=== PATIENT | female | born 1990 | race Caucasian/White ===

== ENCOUNTER 2021-07-03 15:43 | Inpatient (IN) ==
[2021-07-04] MEDS ORDERED: ACETAMINOPHEN 325 MG TAB PO PRN (12:19)
--- NOTE | 2021-07-04 13:16 | History & Physical Report ---
Date of Service July 04, 2021 Assessment & Plan (1) Neuropathy: Plan: Patient does present with neurological findings on examination. Not corroborating with the examinations that have been reported. It seems like she has a mid thoracic neuropathy. Patient will have her images loaded into our system. Patient may be continued on folic acid and thiamine she will also be given B12 pending levels. Neurology would be consulted. Further imaging not be ordered until neurology evaluates the patient. Patient would not be given DVT prevention in case of spinal tap will be undertaken. Per virus records there was some discussion she was on Xarelto for DVT PE but the patient cannot recall that being in her history. [facility] has sent an SPEP which is pending this was sent on 02 July while his vitamin B6. June 30 vitamin B12 was 933 tocopherol was also sent on 02 July folate was found to be 2.2 on June 30 which is low but there laboratory SILVERIO was also sent and is pending as well as ANCA, antiproteinase 3, antimyeloperoxidase, SS Ro and La she had a syphilis test which was nonreactive Lyme disease in the is pending copper level pending zinc level pending (2) Substance abuse: Plan: Patient has history of heavy alcohol use. She is been in the hospital for 5 days by her account. She subsequently passed concern for withdrawal. Does place her at risk for thiamine and folic acid deficiency. Patient currently has no signs or symptoms of withdrawal. Patient will be offered a nicotine patch. (3) Chronic pancreatitis: Plan: Patient typically is on have any diarrhea but she does have persistent chronic abdominal pain. Will check LFTs and lipase but seems like her problem seems to be mostly neurological at this point time (4) History of COVID-19: Plan: Patient states she is admission to [facility] for alcohol withdrawal and chronic pancreatitis in late April where she tested positive for Covid although had no Covid symptoms other than perhaps GI symptoms that were associated with her prime diagnosis. Patient has passed her initial isolation however because she is a transfer from [facility] we will retest her Covid testing at this point time (5) DVT prophylaxis: Plan: SCDs for DVT prevention Admission and Anticipated Discharge Date Admission Date: July 04, 2021 History of Present Illness Primary Care Provider: NO PCP Patient is a transfer from [facility] with bilateral lower extremity weakness. The neuropathy in her report starts approximately care home between her bellybutton and her chest. She says she has sensation although it is altered. The patient has been worked up in 2014 at [facility] where she did have a spinal tap for consideration of multiple sclerosis which reportedly was unremarkable. The patient is a lifelong alcoholic though she has not had any drinks for some time and she has been in [facility] for 5 days prior to her transfer. She states that she in the past also suffer from chronic pancreatitis but is currently on no medications whatsoever. In [facility] it looks like some imaging studies were performed CT scan abdomen pelvis June 28 was with hepatomegaly and steatosis no inflammatory process is seen. Magnetic resonance imaging of the cervical spine with and without contrast July 02 show new area of abnormal signal in the dimitri without enhancement suspicious for demyelinating process in the setting of multiple sclerosis no abnormal cord signal in the cervical or thoracic spine spondylitic change in the cervical and thoracic spine unchanged. Reportedly the patient had teleneurology consult with Dr. Miranda. He r ecommended transfer for onsite neurological evaluation. He recommended MRI of the brain. This may be what we saw combined with the cervical thoracic spine with the dimitri lesion concern. Recommending replete folic acid empiric thiamine Allergies Allergy/AdvReac Type Severity Reaction Status Date / Time adhesive tape Allergy Verified 04/26/19 21:25 aspirin Allergy Verified 04/26/19 21:25 NSAIDS (Non-Steroidal AdvReac Unknown RASH Unverified 03/16/19 17:20 Anti-Inflamma ibuprofen AdvReac Dizziness Verified 04/26/19 21:25 Home Medications Medication Instructions Recorded Confirmed Type albuterol sulfate 90 mcg/actuation 2 puff INHALATION UD PRN 03/16/19 06/20/19 History aerosol inhaler (Ventolin HFA) lisinopril 5 mg tablet 5 mg PO DAILY 03/16/19 06/20/19 History acetaminophen 500 mg tablet 1,500 mg PO BID tab 06/20/19 06/20/19 History trazodone 50 mg tablet See Rx Instructions .ROUTE 10/20/19 Rx .COMPLEX #30 tablet gabapentin 600 mg tablet See Rx Instructions .ROUTE 04/13/20 Rx .COMPLEX #90 tablet Past Med/Surg History Medical History (Updated 07/04/21 @ 13:29 by Jose Nguyen MD) Acute torticollis Bipolar disorder Classic migraine with aura Numbness Pseudotumor cerebri Trichomoniasis UTI (urinary tract infection) Surgical History (Updated 07/06/19 @ 08:49 by Jud Potter) S/P appendectomy S/P section S/P knee surgery Family History (Updated 05/31/19 @ 15:53 by Denny Ibrahim) Father Kidney stone Unknown Sleep apnea Diabetes Kim's palsy Hypertension Cancer Grandmother Myocardial infarction Lymphoma Grandfather Malignant neoplasm of colon Social History Smoking Status: Current every day smoker Preferred Language: Yoruba marital status: single current occupational status: employed Feels Safe at Home: Yes Assistive Devices: Walker Review of Systems Review of Systems: Mild distress and moderate fatigue no headache, no visual changes no speech or swallowing issues no chest pain, pressure or palpitations no shortness of breath, cough or wheezes no abdominal pain, nausea or vomiting, diarrhea or constipation no dysuria, hematuria or frequency Persistent right knee pain. Patient is altered sensation in her lower body which she says is painful. no focal back pain, no CVA tenderness or radicular pain no bruising, bleeding or rashes Patient claims of altered sensation from the mid torso down circumferentially involving the area between her breastbone and umbilicus and both legs. She says she can feel gross touch but not light touch no complaints of anxiety or depression.. Physical Exam Physical Exam: The patient appeared well nourished and normally developed. Patient has a cushingoid appearance initially there is notes that dexamethasone has been on her medication list. Vital signs as documented. Head exam is normocephalic atraumatic Neck is without JVD, thyromegaly, or carotid bruits. Lungs are clear to auscultation, no focal loss of breath sounds Cardiac exam, Rhythm is regular.. No murmurs, rubs or gallops. Abdominal exam reveals normal bowel sounds, soft diffusely nondescript tenderness with no focal guarding or rebound Extremities are nonedematous and both pedal pulses are present Neurologic exam is alert and oriented, patient has brisk reflexes and some clonus to ankle reflex testing. Toes are equivocal upper extremities are not affected in the same way Lower extremities the patient can move her legs against gravity and slightly of them off the bed otherwise she has difficulty positioning and uses her arms to position her legs. She has no upper extremity symptoms or facial nerve deficits that could be seen Skin is without bruises or rashes Psychologically is without concerns for anxiety or depression Patient was openly vocal but asking for pain medication on presentation Results & Data Results & Data ([facility]) Vital Signs (Past 12 Hours) Vital Signs Temp Pulse Resp BP Pulse Ox 07/04/21 11:20 97.9 F 76 16 117/82 95 Code Status & VTE Plan VTE Prophylaxis Plan VTE Prophylaxis will be ordered: Yes PG Care Time/CCT Total # of Minutes Spent Total Time Spent with Patient: Total time spent is greater than 50% in coordination of care (as documented) at patient's floor/unit and/or counseling patient: Coding Level of Care Code 52963 Initial Inpt Care Lvl 3 Diagnoses Neuropathy G62.9 Substance abuse F19.10 Chronic pancreatitis K86.1 History of COVID-19 Z86.16 DVT prophylaxis Z29.9
[2021-07-04] MEDS: MoRPHine SULFATE 2 MG/ML CARP IV PRN ×2 (16:12→21:00)
[2021-07-04] MEDS: ACETAMINOPHEN 500 MG TAB PO SCH ×2 (16:15→21:55)
[2021-07-05] MEDS: MoRPHine SULFATE 2 MG/ML CARP IV PRN ×3 (00:58→23:15)
[2021-07-05] MEDS: GABAPENTIN 600 MG TAB PO PRN ×2 (01:57→10:29)
[2021-07-05] MEDS: ONDANSETRON INJ 2 MG/ML 2 ML VIAL IV PRN ×3 (05:39→23:15)
[2021-07-05] MEDS: ACETAMINOPHEN 500 MG TAB PO SCH ×3 (06:17→22:11)
[2021-07-05 07:11] LABS: Appearance Urine Clear (Clear); Bacteria Urine Automated Negative (Negative); Blood Urine Negative (Negative); Color Urine Dark Yellow; Epithelial Cell Urine Auto >30 /lpf (0-5); Glucose Urine UA Negative (Negative); Ketones Urine Negative (Negative); Leukocyte Esterase Urine 1+ (Negative); Nitrite Urine Negative (Negative); Protein Urine Negative (Negative); RBC Urine Automated 0-4 /hpf (0-4); Specific Gravity Urine 1.009 (1.000-1.030); Urobilinogen Urine Negative (Negative)
[2021-07-05 07:15] LABS: Bilirubin Urine 1+ (Negative)
[2021-07-05 08:30] LABS: BUN Creatinine Ratio 11.5 (10-20); Calcium 10.1 mg/dl (8.5-10.1); Creatinine Clr Calc Pharmacy 159.2 ml/min; Est GFR (African American) 148.5 ml/min; Est GFR (Non-African American) 128.1 ml/min; Magnesium 1.9 mg/dl (1.8-2.4); Potassium 3.4 mmol/L (3.5-5.1)
[2021-07-05] MEDS: oxyCODONE HCL IR 5 MG TAB (IMMEDIATE RELEASE) PO PRN ×3 (08:59→22:33)
--- NOTE | 2021-07-05 10:12 | Fluoroscopy Report ---
FLUOROSCOPICALLY GUIDED LUMBAR PUNCTURE CLINICAL HISTORY: multiple sclerosis work up FLUOROSCOPY TIME: 0.8 minutes. A single fluoroscopic spot image of the lumbar spine was submitted. PROCEDURE: The procedure, risks and benefits were discussed with the patient including the risk of s lucas headache, bleeding and infection. The patient agreed to the procedure and informed written cons ent was obtained. The procedure was performed by Dr. Elias following a timeout. The left L4-L5 in terlaminar space was targeted. Skin overlying the space was prepped and draped in the usual sterile f ashion and local anesthesia was achieved with 1% lidocaine. Under intermittent fluoroscopic guidance, a 20-gauge x 3 1/2 in. Sprotte needle was inserted into the thecal sac. No fluid was obtained. The t ip of the needle was located centrally within the central canal which was confirmed on both AP and la teral views. A second attempt at the L5-S1 level was also made. The tip of the needle was located tanner trally within the central canal which was confirmed on both AP and lateral views. No fluid was obtain ed. Therefore, this could be consistent with a dry tap. The patient tolerated the procedure well. The re were no immediate complications. IMPRESSION: Attempted fluoroscopic guided lumbar puncture described above. No fluid was obtained. The refore, this would be consistent with a dry tap. Consider hydration prior to an additional lumbar pun cture attempt. ACT 112: Negative or not required by law. Electronically signed by: Bryant Elias M.D. 07/05/2021 10:10 AM
[2021-07-05] MEDS: FOLIC ACID 1 MG TAB PO SCH (10:29)
[2021-07-05] MEDS: THIAMINE HCL 200 MG in SODIUM CHLORIDE 0.9% 50 ML IV SCH (10:44)
[2021-07-05] MEDS: NICOTINE 21 MG/24 HR TDSY TD SCH (10:45)
[2021-07-05] MEDS: LORazepam 0.5 MG TAB PO PRN ×2 (10:46→23:15)
--- NOTE | 2021-07-05 11:02 | Neurology Consultation ---
Date of Consultation July 05, 2021 Assessment & Plan (1) Numbness and tingling: (2) Multiple sclerosis: (3) Pseudotumor cerebri: (4) Alcoholism: this patient has been labeled with multiple sclerosis in the past based on abnormality seen on MRIs. More recent MRIs this spring apparently did not show lesions. An MRI done at [facility] of the cervical spine showed a new pontine lesion not present in February. I do not have these films but only the reports. Otherwise cervical and thoracic spine MRIs were unremarkable at [facility]. back in 2014, there was no clinical evidence to suspect MS (although she had a "Lhermitte's sign" ). An LP was unremarkable with no signs of Inflammation a lumbar puncture was attempted today by Radiology at 2 different levels, but it was a "dry tap", even using fluoroscopy. this is likely due to her frequent nausea/vomiting/dehydration The patient has a significant numbness and tingling with sensory level consistently up to T4 diffusely bilaterally. And upper thoracic spinal cord lesion or cervical spinal cord lesion could account for this. I am concerned that the MRIs at [facility] were not sensitive enough to pick something up and were probably done without contrast. On exam the patient has no other focal findings , meningeal signs, or encephalopathy. Patient carries a diagnosis of pseudotumor cerebri but apparently a recent visit to an fork lift truck operator (who diagnosed her originally ) says that she does not had anymore. Patient does have daily frontal headaches which are migrainous in nature. The patient has a history of alcoholism with alcoholic pancreatitis and hepatic steatosis. She had electrolyte abnormalities and nutritional problems. These are improve slightly with hospitalizations recently. She continues to have abdominal pain, nausea and vomiting. The patient has a history of psychiatric issues with bipolar disease and depression. I am not sure she is compliant with any psychiatric medication and she seems depressed and anxious currently. Recommendations: 1. MRI of the brain with without contrast. 2. MRI of the cervical spine with without contrast. 3. MRI of the thoracic spine with and without contrast. 4. perhaps we will attempt LP in the future but we will check the MRIs for now. 5. Consider TSH, B12, B1, and B6 , ESR, and Lyme Western blot. 6. Increase activity as able and use physical and occupational therapy. 7. Consider psychiatric consultation regarding her mood. Overall, I spent a total of 90 minutes with this case including review of records, direct evaluation the patient at bedside, and discussing the case with the patient at bedside, Dr. Elias, RN at bedside, and Dr. Dillard, including differential diagnosis and treatment options. History of Present Illness Reason for Consultation: Patient is a 30-year-old, who I was asked to see the request of Dr. Nguyen, for neurologic consultation regarding possible MS and other issues. Requesting Physician: Dr. Nguyen Attending Physician: Nilay Biggs MD History of Present Illness in 2010 the patient was diagnosed with pseudotumor cerebri and put on Diamox. She was having headaches and blurry vision. Because of some symptoms she apparently, in 2013, saw Dr. Cunningham, who was an MS specialist at [facility] then. Dr. Bolden and felt that she may be had MS but no treatment was given. .Apparently MRIs at that time showed white matter lesions. I cannot seem to find any these MRI since they tend to be all done in outside institutions and we have not actually had MRIs here in our institution. Then, she was seen by Neurology in May of 2015 for the concern regarding MS. At that time, she was having some neck pain with some radicular symptoms into the arms and had a positive Lhermitte's sign. Extensive laboratory studies were unremarkable including CBC, Chem profile, sed rate, RPR, Lyme antibody titers, serum copper studies, SUSANA level, and negative titers for toxo, HSV, and CMV . An LP was performed at [facility] in June of 2015 and showed 1 white cell, 5 red cells, a protein of 36, negative IgG synthesis rate, negative myelin basic protein, negative Lyme studies and no oligoclonal bands seen. Therefore the MRI was negative for inflammatory disease. The patient was lost to follow-up at not seen by Neurology at [facility] since. In March of 2021 she was admitted to [facility] [place] and was diagnosed with pancreatitis secondary to alcoholism. She has been a heavy alcohol user drinking 1/5 of rum per day. She was noted to have depression and carries a diagnosis of bipolar disorder. She has been noncompliant with her psychiatric medications. In May of 2021 she was admitted with abdominal pain, nausea, vomiting, positive Covid-19 test and chronic pancreatitis secondary to alcoholism. She was noted to have hepatic steatosis as well. She tells me that she cut back her alcohol use considerably over the last 2 months. On June 28 she was discharged from [facility] after being admitted for profound weakness with electrolyte abnormalities including very low magnesium of 0.9, hyponatremia, and elevated liver enzymes. Finally, she was admitted to [facility] earlier this week for weakness as well as numbness and tingling. Numbness and tingling includes her feet and legs and goes up including her labia, vagina, and buttocks and her abdomen up to the breast level. This is circumferential and diffuse in her legs, abdomen, and lower thorax. Above T4, she has no numbness and there is no numbness in her arms or neck. Apparently the patient saw an eye doctor July 02 told her he had no evidence of pseudotumor cerebri anymore. The patient was transferred to our institution July 04 in order to get a spinal tap. An MRI of the cervical spine done July 02 showed a new lesion in the dimitri not present in the previous study of February of 2021. she had some spondylosis but no cord impingement. Thoracic spine MRI apparently was unremarkable. I have the reports but not the films. Laboratory studies here revealed a sodium of 135, potassium 3.4, and magnesium 1.9. Urinalysis was unremarkable. She was sent down for a spinal tap today and I have talked to the radiologist. Apparently he was in the spinal canal at 2 different levels ( done under fluoroscopy ) and could not get any cerebrospinal fluid ( "dry tap"). The patient is upset about this and feels a little anxious. Blood pressure was 95/64 earlier today and she is afebrile. Allergies Allergy/AdvReac Type Severity Reaction Status Date / Time adhesive tape Allergy Verified 04/26/19 21:25 aspirin Allergy Verified 04/26/19 21:25 NSAIDS (Non-Steroidal AdvReac Unknown RASH Unverified 03/16/19 17:20 Anti-Inflamma ibuprofen AdvReac Dizziness Verified 04/26/19 21:25 Home Medications Medication Instructions Recorded Confirmed Type albuterol sulfate 90 mcg/actuation 2 puff INHALATION UD PRN 03/16/19 06/20/19 History aerosol inhaler (Ventolin HFA) lisinopril 5 mg tablet 5 mg PO DAILY 03/16/19 06/20/19 History acetaminophen 500 mg tablet 1,500 mg PO BID tab 06/20/19 06/20/19 History trazodone 50 mg tablet See Rx Instructions .ROUTE 10/20/19 Rx .COMPLEX #30 tablet gabapentin 600 mg tablet See Rx Instructions .ROUTE 04/13/20 Rx .COMPLEX #90 tablet Patient History Medical History Acute torticollis Bipolar disorder Classic migraine with aura Numbness Pseudotumor cerebri Trichomoniasis UTI (urinary tract infection) Surgical History S/P appendectomy S/P section S/P knee surgery Family History Father Kidney stone Hypertension Dyslipidemia Unknown Sleep apnea Diabetes Kim's palsy Hypertension Cancer Grandmother Myocardial infarction Lymphoma Grandfather Malignant neoplasm of colon Mother Multiple sclerosis Social History (Updated 07/05/21 @ 10:44 by Toby Villanueva MD) Smoking Status: Current every day smoker Tobacco Type: Cigarettes Age Started Using Tobacco: 10; packs per day: 1.5; Do You Dip or Chew Tobacco: No; Hx Alcohol Use: Yes Alcohol type: hard liquor Alcohol type Comment: rum Alcohol Intake Frequency Comment: was 1/5 per day until about 2 months ago now is "occasional" Preferred Language: Upper Sorbian Communication Ability: Effective Beliefs That Will Affect Care: None marital status: single Current Living Situation: Parent Current Living Situation Comment: Lives with 2 children 1 & 7, pts father is currently living with them to current occupational status: unemployed Feels Safe at Home: Yes Safety Concerns: Feels Safe At This Time Assistive Devices: Walker Assistive Devices Comment: Has dentures but they are broken, no teeth Review of Systems Constitutional: + fatigue and + weakness; no fever Eyes: no diplopia, no eye pain and no worsening vision Ear, Nose, Mouth, Throat: no ear pain, no tinnitus, no hearing loss, no dizziness, no hoarseness and no dysphagia Respiratory: no cough and no dyspnea Cardiovascular: no chest pain, no palpitations and no lightheadedness Gastrointestinal: + abdominal pain, + nausea and + vomiting Genitourinary: no dysuria, no urinary frequency and no urinary incontinence Musculoskeletal: + back pain and + neck pain; no radicular pain, no joint pain and no myalgia Integumentary: no rash and no lesions Neurologic: + generalized weakness and + numbness; no gait abnormality, no localized weakness, no tingling, no tremor(s), no abnormal movements, no headache(s), no abnormal speech, no confusion and no memory loss Psychiatric: no depression, no irritability, no anxiety, no difficulty concentrating, no confusion and no hallucinations Endocrine: no fatigue and no flushing Hematologic / Lymphatic: no easy bleeding and no easy bruising Allergy / Immunological: no urticaria and no problem reported Exam (Neuro) Physical Exam: The patient is right-handed. The patient is awake, alert, and attentive. Speech is normal without any aphasia or dysarthria. The patient can name objects, repeat phrases, and has normal spontaneous speech. Mentation and thought processes are intact, with orientation to person, place and time, and normal fund of knowledge. Attention and concentration are normal. Mood is down and affect is tearful. General appearance and grooming are normal. Short and long-term memory are intact to conversation. Pupils are 3 mm bilaterally and reactive to light. Extraocular eye muscles are intact without nystagmus. Visual acuity and visual kraft seem normal grossly to confrontation. There are no deficits to sensation in the face in all 3 distributions of the fifth cranial nerve bilaterally. Corneal reflexes are positive bilaterally. Facial strength and symmetry was normal bilaterally. Hearing seems normal bilaterally. Palate moves well without asymmetry. There is normal sternocleidomastoid and trapezius (shoulder shrug) strength bilaterally. Tongue is midline with good strength bilaterally. She has no teeth Neck has a full range of motion with some discomfort. Cervical, thoracic, and lumbar spine are mildly tender to palpation. Gait is not tested but stance sitting up in bed is normal. I observed her transfer normally from stretcher to bed without any difficulty. With outstretched arms there is no drift. There are no resting, postural, or action tremors. There is no ataxia with finger to nose testing. There is good facility in the hands. No other abnormal involuntary movements are noted. Motor strength is 5/5 diffusely in the arms bilaterally including deltoids, biceps, triceps, brachioradialis, wrist flexors and extensors, speech and hearing clinic director, and intrinsic hand muscles. Motor strength is 4+/5 diffusely in the legs bilaterally including hip flexors, quadriceps, hamstrings, gastrocnemius, tibialis anterior, tibialis posterior, and Peroneii muscles, However, there is give-way tendencies to this weakness and I suspect that she has intact strength initially diffusely. Toe extensors are normal and there is good bulk in the extensor digitorum brevis muscles bilaterally. The limbs have good tone without rigidity or spasticity. There is no atrophy noted in the muscles. Muscle bulk is normal, there is no tenderness to palpation, no myotonia to percussion, and no fasciculations seen. Sensory examination Reveals decreased sensation to pin and touch in a circumferential diffuse manner in both lower extremities, her perineum, buttocks, abdomen, and back up to at T4 level bilaterally and diffusely. Above this sensation was spared. Reflexes are 2/4 in the biceps, triceps, brachioradialis, quadriceps, and Achilles tendons bilaterally. There is no clonus bilaterally. Toes are downgoing with plantar stimulation bilaterally. Peripheral pulses are present and of normal quality distally in all 4 limbs. There is no peripheral edema noted in the limbs. Results & Data ([facility]) Vital Signs (Past 12 Hours) Vital Signs Temp Pulse Resp BP Pulse Ox 07/05/21 07:31 36.5 C 84 18 95/64 L 96 07/04/21 23:20 36.8 C 64 18 146/97 H 96 PG Care Time/CCT Total # of Minutes Spent Total Time Spent with Patient: Total time spent is greater than 50% in coordination of care (as documented) at patient's floor/unit and/or counseling patient: Coding Level of Care Code 38110 Initial Inpt Care Lvl 3 Diagnoses Numbness and tingling R20.0; R20.2 Multiple sclerosis G35 Pseudotumor cerebri G93.2 Alcoholism F10.20 Time Spent (min) 90 Comment Add modifiers as able
[2021-07-05] MEDS ORDERED: HYDROmorphone INJ 0.5 MG/0.5 ML SYR IV PRN (11:40)
[2021-07-05] MEDS ORDERED: POTASSIUM CHLORIDE 20 MEQ/15 ML UDC PO ONE (12:00)
--- NOTE | 2021-07-05 12:11 | Hospitalist Progress Note ---
Date of Service July 05, 2021 Assessment & Plan (1) Paraparesis: Plan: Sensory level around the level of the nipple; unfortunately, lumbar puncture dry tap Neurology consult noted and appreciatedMRI brain, C-spine, T-spine, and lab tests recommended ordered will presume organic unless proven otherwise Discussed with neurology attending (2) Substance abuse: Plan: Patient has history of heavy alcohol use. She is been in the hospital for 5 days by her account. She subsequently passed concern for withdrawal. Does place her at risk for thiamine and folic acid deficiency. Patient currently has no signs or symptoms of withdrawal. Patient will be offered a nicotine patch. (3) Chronic pancreatitis: Plan: Patient typically is on have any diarrhea but she does have persistent chronic abdominal pain. Will check LFTs and lipase but seems like her problem seems to be mostly neurological at this point time (4) History of COVID-19: Plan: Patient states she is admission to [facility] for alcohol withdrawal and chronic pancreatitis in late April where she tested positive for Covid although had no Covid symptoms other than perhaps GI symptoms that were associated with her prime diagnosis. Patient has passed her initial isolation however because she is a transfer from [facility] we will retest her Covid testing at this point time (5) DVT prophylaxis: Plan: SCDs for DVT prevention Plan: Replace potassium; reports on Augmentin for culture proven respiratory tract infectioncontinue for now SCDs -will consider psychiatry consult Admission and Anticipated Discharge Date Admission Date: July 04, 2021 Subjective Originally presented to outside hospital with abdominal complaints, found to have prolonged QTC and hypokalemia, hypomagnesemia Appears during the course complaint of extremity weakness going on for 1 to 2 weeks; she indicated to me going on for few weeks but worse recently Physical Exam Physical Exam: Constitutional and general: Somewhat chronically ill appearance, looks biologic age Head and face: Mild puffiness puffiness, atraumatic Eyes: No scleral icterus, extraocular movements normal Neck: Supple, no JVD Musculoskeletal: No acute joint swelling, no bony abnormalities Skin/dermatologic/integument: No rash, no purpura Hematologic and lymphatic: pallor none, no petechia Gastrointestinal/abdomen: Nondistended, soft, nonacute Neurologic: Sensory level around level of the nipple; lower extremity weakness about grade 3 power when I saw her Cardiovascular: Heart rhythm regular, no rub, no murmur, no gallop Respiratory: Chest movements equal, no use of accessory muscles, no adventitious sounds Extremities: No edema, no cyanosis Results & Data Results & Data ([facility] Vital Signs (Past 12 Hours) Vital Signs Temp Pulse Resp BP Pulse Ox 07/05/21 10:43 82 113/79 07/05/21 07:31 36.5 C 84 18 95/64 L 96 Laboratory Results Laboratory Results - last 24 hr 07/04/21 07/04/21 07/04/21 12:34 14:09 14:09 Sodium Potassium Chloride Carbon Dioxide Anion Gap BUN Creatinine Est Cr Clr Drug Dosing Est GFR ( Amer) Est GFR (Non-Af Amer) BUN/Creatinine Ratio Glucose 93 Calcium Magnesium Urine Color Urine Appearance Urine pH Ur Specific [place] Urine Protein Urine Glucose (UA) Urine Ketones Urine Blood Urine Nitrite Urine Bilirubin Urine Urobilinogen Ur Leukocyte Esterase Urine WBC (Auto) Urine RBC (Auto) U Hyaline Cast (Auto) U Epithel Cells (Auto) Urine Bacteria (Auto) CSF Albumin Cancelled CSF IgG Cancelled CSF IgG Index Cancelled CSF IgG Synthesis Rate Cancelled CSF Myelin Basic Protein Cancelled CSF IgG Oligoclonal Bnd Cancelled CSF Lyme IgG (Immblot) Cancelled CSF Lyme IgG Bands Det Cancelled CSF Lyme IgM (Immblot) Cancelled CSF Lyme IgM Bands Det Cancelled IgG Cancelled Albumin (TEDDY) Cancelled SARS-CoV-2 (PCR) NEGATIVE EBV Source Cancelled EBV DNA, Quant Cancelled EBV DNA (PCR) Cancelled Herpesvirus 6 Source Cancelled HHV-6 DNA (PCR) Cancelled Varicella-Zoster Source Cancelled VZV DNA (PCR) Cancelled 07/05/21 07/05/21 06:41 07:18 Sodium 138 Potassium 3.4 L Chloride 105 Carbon Dioxide 23 Anion Gap 10.0 BUN 6 L Creatinine 0.51 L Est Cr Clr Drug Dosing 159.2 Est GFR ( Amer) 148.5 Est GFR (Non-Af Amer) 128.1 BUN/Creatinine Ratio 11.5 Glucose 96 Calcium 10.1 Magnesium 1.9 Urine Color Dark Yellow Urine Appearance Clear Urine pH 6.0 Ur Specific [place] 1.009 Urine Protein Negative Urine Glucose (UA) Negative Urine Ketones Negative Urine Blood Negative Urine Nitrite Negative Urine Bilirubin 1+ H Urine Urobilinogen Negative Ur Leukocyte Esterase 1+ H Urine WBC (Auto) 10-30 H Urine RBC (Auto) 0-4 U Hyaline Cast (Auto) 1-5 U Epithel Cells (Auto) >30 H Urine Bacteria (Auto) Negative CSF Albumin CSF IgG CSF IgG Index CSF IgG Synthesis Rate CSF Myelin Basic Protein CSF IgG Oligoclonal Bnd CSF Lyme IgG (Immblot) CSF Lyme IgG Bands Det CSF Lyme IgM (Immblot) CSF Lyme IgM Bands Det IgG Albumin (TEDDY) SARS-CoV-2 (PCR) EBV Source EBV DNA, Quant EBV DNA (PCR) Herpesvirus 6 Source HHV-6 DNA (PCR) Varicella-Zoster Source VZV DNA (PCR) PG Care Time/CCT Total # of Minutes Spent Total Time Spent with Patient: Total time spent is greater than 50% in coordination of care (as documented) at patient's floor/unit and/or counseling patient: Coding Level of Care Code 51403 Subseq Hosp Care Lvl 3 Diagnoses Substance abuse F19.10 Chronic pancreatitis K86.1 History of COVID-19 Z86.16 DVT prophylaxis Z29.9 Paraparesis G82.20
[2021-07-05] MEDS: GABAPENTIN 600 MG TAB PO SCH ×2 (15:40→21:53)
[2021-07-05] MEDS: AMOXICILLIN/CLAVULANATE 875 MG TAB PO SCH (15:40)
[2021-07-05] MEDS ORDERED: ACETAMINOPHEN 500 MG TAB PO ONE (16:17)
[2021-07-06] MEDS ORDERED: GADOBUTROL 65ML VIAL IV ONE (00:58)
[2021-07-06] MEDS: HYDROCORTISONE 2.5% CR 30 GM TUBE EXT PRN (01:29)
[2021-07-06] MEDS: NICOTINE 21 MG/24 HR TDSY TD SCH (01:32)
[2021-07-06] MEDS: oxyCODONE HCL IR 5 MG TAB (IMMEDIATE RELEASE) PO PRN ×4 (04:23→23:57)
[2021-07-06] MEDS: MoRPHine SULFATE 2 MG/ML CARP IV PRN ×3 (05:50→20:37)
[2021-07-06] MEDS: ACETAMINOPHEN 500 MG TAB PO SCH ×3 (06:18→20:23)
[2021-07-06 06:31] LABS: Hematocrit (blood only) 37.8 % (37-47); Hemoglobin 12.2 g/dL (12.0-16.0); Mean Corpuscular Hemoglobin 38.2 pg (25-34); Mean Corpuscular Hgb Conc 32.3 g/dL (32-36); Mean Corpuscular Volume 118.5 fL (80-100); Platelet Count 359 K/uL (130-400); RDW Standard Deviation 68.5 fL (36.4-46.3); Red Blood Count 3.19 M/uL (4.2-5.4); White Blood Count 4.26 K/uL (4.8-10.8)
[2021-07-06 07:19] LABS: Alanine Aminotransferase 56 U/L (12-78); Albumin Globulin Ratio 0.7 (0.9-2); Albumin Level 2.8 gm/dl (3.4-5.0); Alkaline Phosphatase 117 U/L (45-117); Aspartate Aminotransferase 87 U/L (15-37); BUN Creatinine Ratio 22.1 (10-20); Bilirubin,Total 1.2 mg/dl (0.2-1); Blood Urea Nitrogen 10 mg/dl (7-18); Calcium 9.2 mg/dl (8.5-10.1); Carbon Dioxide 29 mmol/L (21-32); Chloride 108 mmol/L (98-107); Creatinine Clr Calc Pharmacy 188.8 ml/min; Est GFR (African American) > 150.0 ml/min; Est GFR (Non-African American) 135.5 ml/min; Globulin 3.9 gm/dl (2.5-4.0); Glucose 83 mg/dl (70-99); Lipase 151 U/L (73-393); Magnesium 1.9 mg/dl (1.8-2.4); Sodium 141 mmol/L (136-145); Total Protein 6.7 gm/dl (6.4-8.2)
--- NOTE | 2021-07-06 08:20 | Hospitalist Progress Note ---
Date of Service July 06, 2021 Assessment & Plan (1) Paraparesis: Plan: MRI is pending; other work-up pending (2) Substance abuse: Plan: Request of narcotic medications frequentlyPer nursing is comfortable till she is asked about level of pain; mood and affect appears abnormal; psychiatry consulted (3) History of COVID-19: Plan: Negative repeat test (4) DVT prophylaxis: Plan: Subcutaneous Lovenox now (5) Abnormal LFTs: Plan: Pattern consistent with alcohol inducedAST more than ALTfollow Plan: Noted asymptomatic pyuria; noted fluctuation in blood pressure; mild leukopenia with macrocytosissuspect alcohol induced Admission and Anticipated Discharge Date Admission Date: July 04, 2021 Subjective Follow-up of lower extremity weaknessno new issues; no change according to her Physical Exam Physical Exam: Constitutional and general: Somewhat chronically ill appearance, looks biologic age Head and face: Mild puffiness puffiness, atraumatic Eyes: No scleral icterus, extraocular movements normal Neck: Supple, no JVD Musculoskeletal: No acute joint swelling, no bony abnormalities Skin/dermatologic/integument: No rash, no purpura Hematologic and lymphatic: pallor none, no petechia Gastrointestinal/abdomen: Nondistended, soft, nonacute Neurologic: Sensory level around level of the nipple; lower extremity weakness about grade 3 power Cardiovascular: Heart rhythm regular, no rub, no murmur, no gallop Respiratory: Chest movements equal, no use of accessory muscles, no adventitious sounds Extremities: No edema, no cyanosis Psychiatry-abnormal affect Results & Data Results & Data ([facility]) Vital Signs (Past 12 Hours) Vital Signs Temp Pulse Resp BP Pulse Ox 07/06/21 07:49 36.5 C 78 17 92/59 L 93 07/05/21 22:13 36.8 C 77 16 111/76 94 Laboratory Results Laboratory Results - last 24 hr 07/05/21 07/05/21 07/05/21 07:18 07:22 11:55 WBC RBC Hgb Hct MCV MCH MCHC RDW Std Deviation RDW Coeff of Parvez Plt Count MPV ESR 37 H Sodium 138 Potassium 3.4 L Chloride 105 Carbon Dioxide 23 Anion Gap 10.0 BUN 6 L Creatinine 0.51 L Est Cr Clr Drug Dosing 159.2 Est GFR ( Amer) 148.5 Est GFR (Non-Af Amer) 128.1 BUN/Creatinine Ratio 11.5 Glucose 96 Calcium 10.1 Magnesium 1.9 Total Bilirubin AST ALT Alkaline Phosphatase Total Protein Albumin Globulin Albumin/Globulin Ratio Lipase Vitamin B1 Vitamin B6 Vitamin B12 TSH 1.580 Lyme IgG (Western Blot) Lyme IgG 18 kDa Band Lyme IgG 23 kDa Band Lyme IgG 28 kDa Band Lyme IgG 30 kDa Band Lyme IgG 39 kDa Band Lyme IgG 41 kDa Band Lyme IgG 45 kDa Band Lyme IgG 58 kDa Band Lyme IgG 66 kDa Band Lyme IgG 93 kDa Band Lyme IgM Ab (WB) Lyme IgM 23 kDa Band Lyme IgM 39 kDa Band Lyme IgM 41 kDa Band 07/05/21 07/05/21 07/05/21 11:55 11:55 11:59 WBC RBC Hgb Hct MCV MCH MCHC RDW Std Deviation RDW Coeff of Parvez Plt Count MPV ESR Sodium Potassium Chloride Carbon Dioxide Anion Gap BUN Creatinine Est Cr Clr Drug Dosing Est GFR ( Amer) Est GFR (Non-Af Amer) BUN/Creatinine Ratio Glucose Calcium Magnesium Total Bilirubin AST ALT Alkaline Phosphatase Total Protein Albumin Globulin Albumin/Globulin Ratio Lipase Vitamin B1 Pending Vitamin B6 Pending Vitamin B12 1034 H TSH Lyme IgG (Western Blot) Pending Lyme IgG 18 kDa Band Pending Lyme IgG 23 kDa Band Pending Lyme IgG 28 kDa Band Pending Lyme IgG 30 kDa Band Pending Lyme IgG 39 kDa Band Pending Lyme IgG 41 kDa Band Pending Lyme IgG 45 kDa Band Pending Lyme IgG 58 kDa Band Pending Lyme IgG 66 kDa Band Pending Lyme IgG 93 kDa Band Pending Lyme IgM Ab (WB) Pending Lyme IgM 23 kDa Band Pending Lyme IgM 39 kDa Band Pending Lyme IgM 41 kDa Band Pending 07/06/21 07/06/21 05:40 05:40 WBC 4.26 L RBC 3.19 L Hgb 12.2 Hct 37.8 MCV 118.5 H MCH 38.2 H MCHC 32.3 RDW Std Deviation 68.5 H RDW Coeff of Parvez 16.0 H Plt Count 359 MPV 11.0 H ESR Sodium 141 Potassium 4.0 D Chloride 108 H Carbon Dioxide 29 Anion Gap 4.0 BUN 10 Creatinine 0.43 L Est Cr Clr Drug Dosing 188.8 Est GFR ( Amer) > 150.0 Est GFR (Non-Af Amer) 135.5 BUN/Creatinine Ratio 22.1 H Glucose 83 Calcium 9.2 Magnesium 1.9 Total Bilirubin 1.2 H AST 87 H ALT 56 Alkaline Phosphatase 117 Total Protein 6.7 Albumin 2.8 L Globulin 3.9 Albumin/Globulin Ratio 0.7 L Lipase 151 Vitamin B1 Vitamin B6 Vitamin B12 TSH Lyme IgG (Western Blot) Lyme IgG 18 kDa Band Lyme IgG 23 kDa Band Lyme IgG 28 kDa Band Lyme IgG 30 kDa Band Lyme IgG 39 kDa Band Lyme IgG 41 kDa Band Lyme IgG 45 kDa Band Lyme IgG 58 kDa Band Lyme IgG 66 kDa Band Lyme IgG 93 kDa Band Lyme IgM Ab (WB) Lyme IgM 23 kDa Band Lyme IgM 39 kDa Band Lyme IgM 41 kDa Band PG Care Time/CCT Total # of Minutes Spent Total Time Spent with Patient: Total time spent is greater than 50% in coordination of care (as documented) at patient's floor/unit and/or counseling patient: Coding Level of Care Code 27487 Subseq Hosp Care Lvl 2 Diagnoses Paraparesis G82.20 Substance abuse F19.10 History of COVID-19 Z86.16 DVT prophylaxis Z29.9 Abnormal LFTs R94.5
[2021-07-06] MEDS: GABAPENTIN 600 MG TAB PO SCH ×3 (08:21→20:29)
[2021-07-06] MEDS: AMOXICILLIN/CLAVULANATE 875 MG TAB PO SCH ×2 (08:22→15:41)
[2021-07-06] MEDS: FOLIC ACID 1 MG TAB PO SCH (08:22)
[2021-07-06] MEDS: THIAMINE HCL 200 MG in SODIUM CHLORIDE 0.9% 50 ML IV SCH (09:02)
[2021-07-06] MEDS: ENOXAPARIN INJ 40 MG/0.4 ML SYR SQ SCH (09:28)
--- NOTE | 2021-07-06 10:16 | Magnetic Resonance Report ---
MR cervical spine wo/w con CLINICAL HISTORY: paraperesis ? MS TECHNIQUE: Sagittal and axial T1, T2 and STIR images were obtained. COMPARISON STUDY: No previous studies for comparison. There are no suspicious areas of marrow replacement. There is small focal area of increased T2 signal within posterior aspect of the cord seen at C4-C5 level shows no evidence of abnormal enhancement (1 /). Overall evaluation is slightly limited due to motion artifact. C2-3: There is no evidence of disc bulge or focal herniation. There is no spinal or foraminal stenosi s. C3-4: Intervertebral disc space is preserved. Central protrusion of the disc is seen causing distorti on of the thecal sac. Bilateral neuroforamina are patent. C4-5: Intervertebral disc space is preserved. Central protrusion of the disc is seen causing mild dis tortion of the thecal sac without significant stenosis of the central canal. Bilateral neuroforamina are patent. C5-6 :Intervertebral disc space is slightly narrowed. Posterior osteophytes are seen. There is centra l protrusion of the disc causing distortion of the thecal sac and mild stenosis of the central canal. Minimal narrowing of bilateral neuroforamina. C6-7: Central canal and right neuroforamina is patent. Mild stenosis of the left neuroforamina. C7-T1: There is no evidence of disc bulge or focal herniation. There is no evidence of spinal stenos is. Mild stenosis of bilateral neuroforamina are seen at this level. IMPRESSION: 1. Focal area of increase T2 signal within the cord could represent demyelinating lesion versus othe r etiology and shows no evidence of enhancement after intravenous contrast administration. 2. Multilevel degenerative changes as detailed above. ACT 112: Negative or not required by law. The above report was generated using voice recognition software. It may contain grammatical, syntax o r spelling errors. Electronically signed by: Jessica Dash DO 07/06/2021 10:14 AM
--- NOTE | 2021-07-06 10:39 | Neurology Progress Note ---
Date of Service July 06, 2021 Assessment & Plan (1) Numbness and tingling: (2) Multiple sclerosis: (3) Pseudotumor cerebri: (4) Alcoholism: Plan: This patient has been labeled with multiple sclerosis in the past, based on abnormality seen on MRIs. More recent MRIs this spring apparently did not show lesions. An MRI done at [facility] of the cervical spine showed a new pontine lesion not present in February. I do not have these films but only the reports. Otherwise cervical and thoracic spine MRIs were unremarkable at [facility]. B Back in 2014, there was no clinical evidence to suspect MS (although she had a "Lhermitte's sign" ). An LP was unremarkable with no signs of Inflammation MRI of the brain showed a central pontine lesion plus some other scattered lesions of an old nature. She had a cord lesion in the cervical spine at C4-5 area. Interestingly, she has disc disease particularly in the thoracic spine at T5-6 and C6-7 without cord impingement and no lesions in the thoracic cord. Overall, her lesions in the brain and cervical spine are consistent with MS. A lumbar puncture was attempted - by Radiology at 2 different levels, but it was a "dry tap", even using fluoroscopy. this is likely due to her frequent nausea/vomiting/dehydration. I was hoping he could get an LP before I start treatment on her to see if we have inflammatory disease. The patient has a significant numbness and tingling with sensory level consistently up to T4 diffusely bilaterally. This could be secondary to the discs seen at T5-6 and T6-7. Alternatively, the relatively new pontine lesion, or the cervical spine lesion could cause her sensory level (but the cervical spine lesion is most likely old). On exam the patient has no other focal findings , meningeal signs, or encephalopathy. She has giveaway weakness in her limbs. Overall, therefore, I suspect that this patient does have multiple sclerosis and has had new symptoms and flare-up recently. Patient carries a diagnosis of pseudotumor cerebri but apparently a recent visit to an damage inside adjuster (who diagnosed her originally ) says that she does not had anymore. Patient does have daily frontal headaches which are migrainous in nature. The patient has a history of alcoholism with alcoholic pancreatitis and hepatic steatosis. She had electrolyte abnormalities and nutritional problems. These are improve slightly with hospitalizations recently. She continues to have abdominal pain, nausea and vomiting. The patient has a history of psychiatric issues with bipolar disease and depression. I am not sure she is compliant with any psychiatric medication and she seems depressed and anxious currently. Recommendations: 1. perhaps we will attempt LP in the future , but hold on this for now. 2. Consider 1 gram IV Solu-Medrol, each day for 3 days. We will see if this resolves her sensory level and other symptoms. 3. Increase activity as able and use physical and occupational therapy. 4. Awaiting psychiatric consult. Her condition is complicated by her mood issues. Overall, I spent a total of 45 minutes with this case including review of records, review of MRI films, direct evaluation the patient at bedside, and discussion of the case with the patient at bedside, Dr. Hughes, and Dr. Dillard, including differential diagnosis and treatment options. Admission and Anticipated Discharge Date Admission Date: July 04, 2021 Subjective patient continues to have numbness and tingling up to her chest symmetrically diffusely as before including both legs, abdomen, and thorax. She remains weak in her legs as before and uses a walker. Blood pressure is 92/59. She is afebrile. MRI of the brain showed a lesion in her dimitri and some other scattered white matter lesions which were old. There was no enhancement. MRI of the cervical spine showed a lesion at C4-5 in the cord with no enhancement. She has some disc disease protruding at C4-5 just below the area of cord lesion. MRI of the thoracic spine showed multiple levels of disc protrusion particularly T5-6 and T6-7. There was no enhancement. I reviewed all of these MRIs myself, and with Dr. Hughes. CBC showed a mildly low white count and elevated MCV. She was not anemic. Chem profile showed elevated AST and total bilirubin. B12 was normal as was TSH. B1 and B6 are pending. Lyme Western blot is pending. Results & Data ([facility]) Vital Signs (Past 12 Hours) Vital Signs Temp Pulse Resp BP Pulse Ox 07/06/21 07:49 36.5 C 78 17 92/59 L 93 Exam (Neuro) Physical Exam: She is awake and alert. Speech is without aphasia or dysarthria. Mood is normal and affect is appropriate. Thought processes are intact with good long and short-term memory to conversation. Extraocular eye muscles are intact without nystagmus. There is no facial droop. The patient has a "balderas facies" that is reminiscent of steroid effect. She tells me she only got steroids for a couple of days in the hospital most recently at [facility]. Coordination is normal in the arms. She has some giveaway weakness to strength testing in the left upper extremity. There is giveaway weakness to strength testing in the lower extremities bilaterally. Toes are downgoing with plantar stimulation bilaterally. PG Care Time/CCT Total # of Minutes Spent Total Time Spent with Patient: Total time spent is greater than 50% in coordination of care (as documented) at patient's floor/unit and/or counseling patient: Coding Level of Care Code 31144 Subseq Hosp Care Lvl 3 Diagnoses Numbness and tingling R20.0; R20.2 Multiple sclerosis G35 Pseudotumor cerebri G93.2 Alcoholism F10.20 Time Spent (min) 45
--- NOTE | 2021-07-06 10:48 | Magnetic Resonance Report ---
MRI OF THE BRAIN WITHOUT AND WITH IV CONTRAST CLINICAL HISTORY: paraperesis ? MS COMPARISON STUDY: No previous studies for comparison. TECHNIQUE: MRI of the brain was performed from the vertex to the skull base utilizing various T1 and T2 weighted sequences. Following the IV administration of mL of Gadavist contrast, additional enhance d images were obtained. FINDINGS: Sagittal T1, axial diffusion, proton density and T2 weighted axial, coronal FLAIR, and pre and post a xial T1-weighted images were acquired. These were supplemented with post gadolinium coronal T1 weight ed images. No intra or extra-axial mass lesions are visualized. Axial diffusion-weighted images reveal no evidence of acute or subacute infarction. There is no evidence of ventricular dilatation. Proton density T2-weighted and FLAIR images reveal slightly increased T2 FLAIR signal within downs o f the lateral ventricles without significant involvement of the periventricular/subcortical white mat ter or corpus callosum. High T2 FLAIR signal within central aspect of the dimitri also shows decrease si gnal on T1 sequence and no evidence of enhancement after intravenous contrast administration. Similar area of increased T2 FLAIR signal is seen within cervical cord at the C4-C5 level (/116) There are no abnormal flow voids. Fluid signal is seen within right frontal sinus. IMPRESSION: 1. No acute intracranial hemorrhage, no midline shift or space occupying lesions. 2. Few areas of high T2 FLAIR signal within dimitri and cervical cord, nonspecific, shows no evidence o f enhancement after intravenous contrast administration most likely representing demyelinating proces s such as multiple sclerosis, however other etiology is also possible. Follow-up evaluation is per cl inical protocol. 3. No evidence of restricted diffusion to suggest acute ischemia/infarct. 4. Fluid signal within right frontal sinus, might represent sinusitis. Please correlate with clinica l presentation. ACT 112: Positive. There are findings on this exam that require communication between the performing entity and the patient following Patient Test Result Information Act ([place] Act 112) guidelines. The above report was generated using voice recognition software. It may contain grammatical, syntax o r spelling errors. Electronically signed by: Jessica Dash DO 07/06/2021 10:47 AM
[2021-07-06] MEDS: LORazepam 0.5 MG TAB PO PRN (11:03)
--- NOTE | 2021-07-06 11:12 | Magnetic Resonance Report ---
MR thoracic spine wo/w con HISTORY: 30 years-old Female paraperesis ? MS, upper extremity paresthesias with possible MS. COMPARISON: MRI brain and cervical spine studies of same day, MRI thoracic spine 07/02/2021 [facility]. TECHNIQUE: Multiplanar and multisequence MRI of the thoracic spine was obtained both with and without the use of 8.0 mL Gadavist. FINDINGS: The engineering drawings checker localizer images demonstrate no gross extraspinal abnormality. The liver appears to be prom inent in size. Signal within the thoracic spinal cord appears normal. Conus medullaris terminates at T12-L1. Study is motion degraded. No acute fracture, subluxation, endplate erosion, bone marrow or so ft tissue edema. There is no abnormal enhancement. There is mild multilevel discogenic degeneration a s described below. Minimal multilevel spondylitic spurring and facet arthrosis. T5-T6: Central disc protrusion measures 6 mm transversely. Mild central canal stenosis, AP dimension of the thecal sac measuring 8 mm. The bilateral neural foramen are patent. T6-T7: 8 x 4 mm left paracentral/left lateral recess disc protrusion on image 13 series 31. Mild cent ral canal with moderate left lateral recess narrowing. AP dimension of the thecal sac measures 6 mm. The neural foramen are patent. T7-T8: 1.2 x 0.4 cm right lateral recess/foraminal disc protrusion causes mild to moderate narrowing of the right lateral recess along with mild to moderate right neural foraminal narrowing. The central canal and left neural foramen are patent. T8-T9: Right lateral recess/right foraminal annular fissure with disc protrusion measuring approximat jessica 11 mm transversely. Mild right lateral recess narrowing with mild right foraminal stenosis. The c entral canal and left neural foramen are patent. T9-T10: Spondylitic spurring with small posterior annular disc bulge. The central canal and right mary ral foramen are patent. Mild left neural foraminal narrowing. T10-T11: Spondylitic spurring with small posterior annular disc bulge results in mild bilateral neura l foraminal narrowing. The central canal is patent. No additional significant central canal or neural foraminal narrowing. IMPRESSION: 1. Normal signal of the thoracic spinal cord. No abnormal enhancement. 2. Multilevel discogenic degeneration as detailed above with mild central canal stenosis at T5-T6 and T6-T7. 3. Multilevel neural foraminal narrowing, moderate on the right at T7-T8. ACT 112: Negative or not required by law. The above report was generated using voice recognition software. It may contain grammatical, syntax o r spelling errors. Dictated: 07/06/2021 9:00 AM Transcribed: 07/06/2021 10:23 AM Luisa [id number] [email or web address] Electronically signed by: Josue Hughes M.D. 07/06/2021 11:11 AM
[2021-07-06] MEDS: methylPREDNISolone 1,000 MG in DEXTROSE 5% 250 ML IV SCH (11:29)
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
[2021-07-06] MEDS: LORazepam 1 MG TAB PO PRN (15:41)
[2021-07-06] MEDS: ONDANSETRON INJ 2 MG/ML 2 ML VIAL IV PRN (15:41)
[2021-07-07] MEDS: LORazepam 1 MG TAB PO PRN ×2 (01:15→21:08)
[2021-07-07] MEDS: ACETAMINOPHEN 500 MG TAB PO SCH (04:53)
[2021-07-07] MEDS: MoRPHine SULFATE 2 MG/ML CARP IV PRN ×4 (05:38→22:22)
[2021-07-07 06:10] LABS: Alanine Aminotransferase 53 U/L (12-78); Albumin Level 2.7 gm/dl (3.4-5.0); Aspartate Aminotransferase 67 U/L (15-37); BUN Creatinine Ratio 18.4 (10-20); Blood Urea Nitrogen 8 mg/dl (7-18); Carbon Dioxide 27 mmol/L (21-32); Chloride 110 mmol/L (98-107); Creatinine Clr Calc Pharmacy 180.4 ml/min; Est GFR (African American) > 150.0 ml/min; Est GFR (Non-African American) 133.5 ml/min; Glucose 156 mg/dl (70-99); Magnesium 1.7 mg/dl (1.8-2.4); Sodium 142 mmol/L (136-145)
[2021-07-07 06:13] LABS: Albumin Globulin Ratio 0.7 (0.9-2); Alkaline Phosphatase 94 U/L (45-117); Globulin 4.1 gm/dl (2.5-4.0); Total Protein 6.8 gm/dl (6.4-8.2)
[2021-07-07] MEDS: THIAMINE HCL 200 MG in SODIUM CHLORIDE 0.9% 50 ML IV SCH (08:06)
[2021-07-07] MEDS: NICOTINE 21 MG/24 HR TDSY TD SCH (08:09)
[2021-07-07] MEDS: AMOXICILLIN/CLAVULANATE 875 MG TAB PO SCH ×2 (08:10→16:59)
[2021-07-07] MEDS: ESCITALOPRAM OXALATE 10 MG TAB PO SCH (08:11)
[2021-07-07] MEDS: GABAPENTIN 600 MG TAB PO SCH ×3 (08:12→20:58)
[2021-07-07] MEDS: oxyCODONE HCL IR 5 MG TAB (IMMEDIATE RELEASE) PO PRN ×2 (08:12→18:09)
[2021-07-07] MEDS: FOLIC ACID 1 MG TAB PO SCH (08:12)
[2021-07-07] MEDS: ENOXAPARIN INJ 40 MG/0.4 ML SYR SQ SCH (08:14)
[2021-07-07] MEDS: methylPREDNISolone 1,000 MG in DEXTROSE 5% 250 ML IV SCH (08:16)
[2021-07-07] MEDS ORDERED: MAGNESIUM OXIDE 400 MG TAB PO ONE (09:31)
--- NOTE | 2021-07-07 09:32 | Hospitalist Progress Note ---
Date of Service July 07, 2021 Assessment & Plan (1) Paraparesis: Plan: MRI suggestive of multiple sclerosisinitiated on IV Solu-Medrol; neurology input greatly appreciated (2) Substance abuse: Plan: Request of narcotic medications frequentlyPer nursing is comfortable till she is asked about level of pain; mood and affect appears abnormal; psychiatry consulted (3) Major depression: Plan: Noted initiation of Lexapro; psychiatry input greatly appreciated (4) History of COVID-19: Plan: Negative repeat test (5) Abnormal LFTs: Plan: Pattern consistent with alcohol inducedAST more than ALTfollow; overall improving Plan: Noted asymptomatic pyuria-see radiology report difficulty in urination/hesitancy-like symptoms but might be more neurological; cultures negative to date; noted fluctuation in blood pressureasymptomatic; follow clinically; replace magnesium Admission and Anticipated Discharge Date Admission Date: July 04, 2021 Subjective Follow-up of lower extremity weakness; MRI suggestive of multiple sclerosisinitiated on IV Solu-Medrol; no change neurologically symptom guthrie Complaint of right knee painreports left meniscus tear and wants evaluated Physical Exam Physical Exam: Constitutional and general: Overall looks better , looks biologic age Head and face: Mild puffiness puffiness, atraumatic Eyes: No scleral icterus, extraocular movements normal Neck: Supple, no JVD Musculoskeletal: No acute joint swelling, no bony abnormalities Skin/dermatologic/integument: No rash, no purpura Hematologic and lymphatic: pallor none, no petechia Gastrointestinal/abdomen: Nondistended, soft, nonacute Neurologic: lower extremity weakness about grade 3/4- powerno change Cardiovascular: Heart rhythm regular, no rub, no murmur, no gallop Respiratory: Chest movements equal, no use of accessory muscles, no adventitious sounds Extremities: No edema, no cyanosis Psychiatry-affect better Results & Data Results & Data ([facility]) Vital Signs (Past 12 Hours) Vital Signs Temp Pulse Resp BP Pulse Ox 07/07/21 07:47 36.8 C 78 17 115/76 97 07/06/21 23:17 36.8 C 71 16 135/90 91 Laboratory Results Laboratory Results - last 24 hr 07/07/21 05:30 Sodium 142 Potassium 4.0 Chloride 110 H Carbon Dioxide 27 Anion Gap 5.0 BUN 8 Creatinine 0.45 L Est Cr Clr Drug Dosing 180.4 Est GFR ( Amer) > 150.0 Est GFR (Non-Af Amer) 133.5 BUN/Creatinine Ratio 18.4 Glucose 156 H Calcium 9.0 Magnesium 1.7 L Total Bilirubin 1.0 AST 67 H ALT 53 Alkaline Phosphatase 94 Total Protein 6.8 Albumin 2.7 L Globulin 4.1 H Albumin/Globulin Ratio 0.7 L PG Care Time/CCT Total # of Minutes Spent Total Time Spent with Patient: Total time spent is greater than 50% in coordination of care (as documented) at patient's floor/unit and/or counseling patient: Coding Level of Care Code 74129 Subseq Hosp Care Lvl 2 Diagnoses Paraparesis G82.20 Substance abuse F19.10 History of COVID-19 Z86.16 Abnormal LFTs R94.5 Major depression F32.9
[2021-07-07] MEDS: ONDANSETRON INJ 2 MG/ML 2 ML VIAL IV PRN ×2 (11:00→18:33)
--- NOTE | 2021-07-07 11:11 | Neurology Progress Note ---
Date of Service July 07, 2021 Assessment & Plan (1) Numbness and tingling: (2) Multiple sclerosis: (3) Pseudotumor cerebri: (4) Alcoholism: Plan: This patient has been labeled with multiple sclerosis in the past, based on abnormality seen on MRIs. More recent MRIs this spring apparently did not show lesions. An MRI done at [facility] of the cervical spine showed a new pontine lesion not present in February. I do not have these films but only the reports. Otherwise cervical and thoracic spine MRIs were unremarkable at [facility]. B Back in 2014, there was no clinical evidence to suspect MS (although she had a "Lhermitte's sign" ). An LP was unremarkable with no signs of Inflammation However,MRI of the brain July 05, showed a central pontine lesion plus some other scattered lesions of an old nature. She had a cord lesion in the cervical spine at C4-5 area. Interestingly, she has disc disease particularly in the thoracic spine at T5-6 and C6-7 without cord impingement and no lesions in the thoracic cord. Overall, her lesions in the brain and cervical spine are consistent with MS. A lumbar puncture was attempted - by Radiology at 2 different levels, but it was a "dry tap", even using fluoroscopy. this is likely due to her frequent nausea/vomiting/dehydration. I was hoping he could get an LP before I start treatment on her to see if we have inflammatory disease. The patient has a significant numbness and tingling with sensory level consistently up to T4 diffusely bilaterally. This could be secondary to the discs seen at T5-6 and T6-7. Alternatively, the relatively new pontine lesion, or the cervical spine lesion could cause her sensory level (but the cervical spine lesion is most likely old). On exam the patient has no other focal findings , meningeal signs, or encephalopathy. She has giveaway weakness in her limbs. Overall, therefore, I suspect that this patient does have multiple sclerosis and has had new symptoms and flare-up recently. Patient carries a diagnosis of pseudotumor cerebri but apparently a recent visit to an protein chemist (who diagnosed her originally ) says that she does not had anymore. Patient does have daily frontal headaches which are migrainous in na ture. The patient has a history of alcoholism with alcoholic pancreatitis and hepatic steatosis. She had electrolyte abnormalities and nutritional problems. These are improve slightly with hospitalizations recently. She continues to have abdominal pain, nausea and vomiting. The patient has a history of psychiatric issues with bipolar disease and depression. I am not sure she is compliant with any psychiatric medication and she seems depressed and anxious currently. She saw Psychiatry July 06, and Dr. Dozier initiated escitalopram. His diagnosis was major depression and generalized anxiety disorder. Recommendations: 1. perhaps we will attempt LP in the future , but hold on this for now. 2. finish 3 day IV Solu-Medrol protocol. We will see if this resolves her sensory level and other symptoms. 3. Increase activity as able and use physical and occupational therapy. 4. continue escitalopram 10 mg daily. 5. I can follow up as an outpatient Overall, I spent a total of 25 minutes with this case including review of records, direct evaluation the patient at bedside, and discussion of the case with the patient at bedside, RN at bedside, and Dr. Biggs, including differential diagnosis and treatment options. Admission and Anticipated Discharge Date Admission Date: July 04, 2021 Subjective Patient is stable today. She does not have any new numbness, tingling, weakness, or pain. In fact she looks more comfortable today that she had been. Nursing reports no new issues. She is finishing day 2 of 1 g IV Solu-Medrol for total of 3 days She was initiated on escitalopram 10 mg daily for mood. Her mood is stable. Results & Data ([facility]) Vital Signs (Past 12 Hours) Vital Signs Temp Pulse Resp BP Pulse Ox 07/07/21 07:47 36.8 C 78 17 115/76 97 07/06/21 23:17 36.8 C 71 16 135/90 91 Exam (Neuro) Physical Exam: She is awake and alert. Speech is without aphasia or dysarthria. Mood and affect are normal appropriate. Thought processes are intact to conversation. Extraocular eye muscles are intact without nystagmus. Coordination is normal in the arms and stance sitting up in bed is good. Limb strength is symmetrical. PG Care Time/CCT Total # of Minutes Spent Total Time Spent with Patient: Total time spent is greater than 50% in coordination of care (as documented) at patient's floor/unit and/or counseling patient: Coding Level of Care Code 97157 Subseq Hosp Care Lvl 2 Diagnoses Numbness and tingling R20.0; R20.2 Multiple sclerosis G35 Pseudotumor cerebri G93.2 Alcoholism F10.20 Time Spent (min) 25
[2021-07-07] MEDS: ACETAMINOPHEN 325 MG TAB PO SCH ×2 (16:33→20:58)
[2021-07-07] MEDS: HYDROCORTISONE 2.5% CR 30 GM TUBE EXT PRN ×2 (16:57→21:09)
[2021-07-08] MEDS: MoRPHine SULFATE 2 MG/ML CARP IV PRN ×4 (05:20→21:30)
[2021-07-08] MEDS: ACETAMINOPHEN 325 MG TAB PO SCH ×3 (05:24→21:29)
[2021-07-08] MEDS: LORazepam 1 MG TAB PO PRN ×3 (06:21→22:07)
[2021-07-08 06:41] LABS: Basophils # (auto) 0.01 K/uL (0-0.2); Basophils % (auto) 0.1 %; Hematocrit (blood only) 37.8 % (37-47); Hemoglobin 12.2 g/dL (12.0-16.0); Immature Granulocytes # (auto) 0.05 K/uL (0.00-0.02); Immature Granulocytes % (auto) 0.5 %; Lymphocytes # (auto) 1.54 K/uL (1.2-3.4); Lymphocytes % (auto) 15.8 %; Mean Corpuscular Hemoglobin 38.4 pg (25-34); Mean Corpuscular Hgb Conc 32.3 g/dL (32-36); Mean Corpuscular Volume 118.9 fL (80-100); Mean Platelet Volume 10.8 fL (7.4-10.4); Monocytes # (auto) 1.05 K/uL (0.11-0.59); Monocytes % (auto) 10.7 %; Neutrophils # (auto) 7.12 K/uL (1.4-6.5); Neutrophils % (auto) 72.9 %; Platelet Count 514 K/uL (130-400); RDW Coefficient of Variation 15.6 % (11.5-14.5); RDW Standard Deviation 67.4 fL (36.4-46.3); Red Blood Count 3.18 M/uL (4.2-5.4); White Blood Count 9.77 K/uL (4.8-10.8)
[2021-07-08 07:09] LABS: Macrocytosis Present
[2021-07-08 07:11] LABS: Albumin Level 2.8 gm/dl (3.4-5.0); BUN Creatinine Ratio 28.9 (10-20); Calcium 9.5 mg/dl (8.5-10.1); Creatinine Clr Calc Pharmacy 162.4 ml/min; Est GFR (African American) 149.5 ml/min
[2021-07-08 07:14] LABS: Albumin Globulin Ratio 0.7 (0.9-2); Bilirubin,Total 0.7 mg/dl (0.2-1); Globulin 4.1 gm/dl (2.5-4.0); Total Protein 6.9 gm/dl (6.4-8.2)
[2021-07-08] MEDS: THIAMINE HCL 200 MG in SODIUM CHLORIDE 0.9% 50 ML IV SCH (08:06)
[2021-07-08] MEDS: ONDANSETRON INJ 2 MG/ML 2 ML VIAL IV PRN ×2 (08:09→14:50)
[2021-07-08] MEDS: oxyCODONE HCL IR 5 MG TAB (IMMEDIATE RELEASE) PO PRN ×3 (08:15→23:00)
[2021-07-08] MEDS: GABAPENTIN 600 MG TAB PO SCH ×3 (08:16→21:29)
[2021-07-08] MEDS: ESCITALOPRAM OXALATE 10 MG TAB PO SCH (08:16)
[2021-07-08] MEDS: AMOXICILLIN/CLAVULANATE 875 MG TAB PO SCH (08:17)
[2021-07-08] MEDS: NICOTINE 21 MG/24 HR TDSY TD SCH (08:17)
[2021-07-08] MEDS: FOLIC ACID 1 MG TAB PO SCH (08:17)
[2021-07-08] MEDS: ENOXAPARIN INJ 40 MG/0.4 ML SYR SQ SCH (08:17)
[2021-07-08] MEDS: methylPREDNISolone 1,000 MG in DEXTROSE 5% 250 ML IV SCH (08:18)
--- NOTE | 2021-07-08 10:08 | Hospitalist Progress Note ---
Date of Service July 08, 2021 Assessment & Plan (1) Paraparesis: Plan: MRI suggestive of multiple sclerosisday 3 of IV Solu-Medrol today Appears some neurologic improvement Outpatient neurology Will need rehab placementsee PT note (2) Substance abuse: Plan: Psychiatry following; recommend alcohol cessation (3) Major depression: Plan: Lexapro initiated; psychiatry input greatly appreciated (4) History of COVID-19: Plan: Negative repeat test (5) Abnormal LFTs: Plan: Pattern consistent with alcohol inducedfollow (6) Right knee pain: Plan: MRI Plan: Urine culture Gardnerella; appears probable bacterial vaginosismetronidazole 7 days Admission and Anticipated Discharge Date Admission Date: July 04, 2021 Subjective States little better although continues to complain of intermittent pain; worried about torn meniscus right knee Physical Exam Physical Exam: Constitutional and general: Overall looks better , looks biologic age Head and face: Mild puffiness puffiness, atraumatic Eyes: No scleral icterus, extraocular movements normal Neck: Supple, no JVD Musculoskeletal: No acute joint swelling, no bony abnormalities Skin/dermatologic/integument: No rash, no purpura Hematologic and lymphatic: pallor none, no petechia Gastrointestinal/abdomen: Nondistended, soft, nonacute Neurologic: Slight improvement in lower extremity weakness and sensationnote level around the nipple area Cardiovascular: Heart rhythm regular, no rub, no murmur, no gallop Respiratory: Chest movements equal, no use of accessory muscles, no adventitious sounds Extremities: No edema, no cyanosis Psychiatry-affect better Results & Data Results & Data ([facility]) Vital Signs (Past 12 Hours) Vital Signs Temp Pulse Resp BP Pulse Ox 07/08/21 07:28 36.4 C L 81 17 118/78 95 07/07/21 22:14 36.7 C 70 16 146/88 H 97 Laboratory Results Laboratory Results - last 24 hr 07/08/21 07/08/21 06:11 06:12 WBC 9.77 RBC 3.18 L Hgb 12.2 Hct 37.8 MCV 118.9 H MCH 38.4 H MCHC 32.3 RDW Std Deviation 67.4 H RDW Coeff of Parvez 15.6 H Plt Count 514 H MPV 10.8 H Immature Gran % (Auto) 0.5 Neut % (Auto) 72.9 Lymph % (Auto) 15.8 Bowie % (Auto) 10.7 Eos % (Auto) 0.0 Baso % (Auto) 0.1 Neut # (Auto) 7.12 H Lymph # (Auto) 1.54 Bowie # (Auto) 1.05 H Eos # (Auto) 0.00 Baso # (Auto) 0.01 Immature Gran # (Auto) 0.05 H Macrocytosis Present Sodium 143 Potassium 4.0 Chloride 107 Carbon Dioxide 30 Anion Gap 6.0 BUN 14 D Creatinine 0.50 L Est Cr Clr Drug Dosing 162.4 Est GFR ( Amer) 149.5 Est GFR (Non-Af Amer) 129.0 BUN/Creatinine Ratio 28.9 H Glucose 116 H Calcium 9.5 Magnesium 2.0 Total Bilirubin 0.7 AST 74 H ALT 59 Alkaline Phosphatase 96 Total Protein 6.9 Albumin 2.8 L Globulin 4.1 H Albumin/Globulin Ratio 0.7 L PG Care Time/CCT Total # of Minutes Spent Total Time Spent with Patient: Total time spent is greater than 50% in coordination of care (as documented) at patient's floor/unit and/or counseling patient: Coding Level of Care Code 18402 Subseq Hosp Care Lvl 2 Diagnoses Paraparesis G82.20 Substance abuse F19.10 Major depression F32.9 History of COVID-19 Z86.16 Abnormal LFTs R94.5 Right knee pain M25.561
[2021-07-08] MEDS ORDERED: LORazepam 0.5 MG/1 ML VIAL IV STA (10:46)
[2021-07-08] MEDS: metroNIDAZOLE 500 MG TAB PO SCH ×2 (12:51→21:29)
--- NOTE | 2021-07-08 18:07 | Magnetic Resonance Report ---
MRI OF THE RIGHT KNEE CLINICAL HISTORY: Right knee pain. COMPARISON STUDY: Radiographs of the right knee dated 07/01/2021. TECHNIQUE: MRI of the right knee was performed utilizing proton density, T1, and T2-weighted sequence s in the axial, sagittal, coronal planes. IV contrast was not administered for this examination. FINDINGS: Menisci: The medial and lateral menisci are intact. Ligaments: The anterior and posterior cruciate ligaments are intact. The medial and lateral collatera l ligaments are within normal limits. Extensor mechanism: The extensor mechanism is intact. Hoffa's fat pad is normal in appearance. Articular cartilage and bone: There is mild chondromalacia patella with foci of greater than 50% fiss uring of the articular cartilage along the medial patellar facet. No reactive marrow edema is identif ied. There is also thinning of the articular cartilage along the medial femoral trochlea. There is on ly mild thinning of the articular cartilage along the weightbearing surfaces of the medial and latera l compartments. No fracture is identified. A calcified fabella is incidentally noted. Joint effusion: None Soft tissues: There is trace popliteal cyst. Venous varicosities are noted posterior to the knee. The re is generalized atrophy of the regional musculature. IMPRESSION: 1. There is no evidence of meniscal or ligamentous injury of the right knee 2. Mild chondromalacia patella. 3. Trace joint fluid and trace popliteal cyst. 4. Venous varicosities are noted posterior to the knee. ACT 112: Negative or not required by law. Electronically signed by: Mark Soriano M.D. 07/08/2021 6:06 PM
[2021-07-09] MEDS: MoRPHine SULFATE 2 MG/ML CARP IV PRN ×5 (01:54→21:31)
[2021-07-09] MEDS: ACETAMINOPHEN 325 MG TAB PO SCH ×3 (06:08→21:32)
[2021-07-09 06:52] LABS: Basophils # (auto) 0.01 K/uL (0-0.2); Basophils % (auto) 0.1 %; Hematocrit (blood only) 36.3 % (37-47); Hemoglobin 11.3 g/dL (12.0-16.0); Immature Granulocytes # (auto) 0.06 K/uL (0.00-0.02); Immature Granulocytes % (auto) 0.7 %; Lymphocytes # (auto) 1.85 K/uL (1.2-3.4); Lymphocytes % (auto) 22.8 %; Mean Corpuscular Hemoglobin 36.9 pg (25-34); Mean Corpuscular Hgb Conc 31.1 g/dL (32-36); Mean Corpuscular Volume 118.6 fL (80-100); Mean Platelet Volume 10.6 fL (7.4-10.4); Monocytes # (auto) 0.98 K/uL (0.11-0.59); Monocytes % (auto) 12.1 %; Neutrophils # (auto) 5.21 K/uL (1.4-6.5); Neutrophils % (auto) 64.3 %; Nucleated RBC # (auto) 0.02 K/uL (0-0); Nucleated RBC % (auto) 0.2 %; Platelet Count 533 K/uL (130-400); RDW Coefficient of Variation 15.3 % (11.5-14.5); RDW Standard Deviation 66.1 fL (36.4-46.3); Red Blood Count 3.06 M/uL (4.2-5.4); White Blood Count 8.11 K/uL (4.8-10.8)
[2021-07-09 07:30] LABS: Albumin Level 2.6 gm/dl (3.4-5.0); Creatinine Clr Calc Pharmacy 150.4 ml/min; Est GFR (African American) 145.7 ml/min; Est GFR (Non-African American) 125.7 ml/min; Magnesium 1.9 mg/dl (1.8-2.4); Potassium 3.7 mmol/L (3.5-5.1)
[2021-07-09 07:32] LABS: Albumin Globulin Ratio 0.7 (0.9-2); Bilirubin,Total 0.6 mg/dl (0.2-1); Globulin 3.6 gm/dl (2.5-4.0); Total Protein 6.2 gm/dl (6.4-8.2)
[2021-07-09 07:33] LABS: Macrocytosis Present; Stomatocytes 1+
[2021-07-09] MEDS: oxyCODONE HCL IR 5 MG TAB (IMMEDIATE RELEASE) PO PRN ×2 (08:04→14:11)
[2021-07-09] MEDS: ONDANSETRON INJ 2 MG/ML 2 ML VIAL IV PRN ×2 (08:31→15:37)
[2021-07-09] MEDS: FOLIC ACID 1 MG TAB PO SCH (08:34)
[2021-07-09] MEDS: metroNIDAZOLE 500 MG TAB PO SCH ×2 (08:34→21:33)
[2021-07-09] MEDS: ESCITALOPRAM OXALATE 10 MG TAB PO SCH (08:34)
[2021-07-09] MEDS: GABAPENTIN 600 MG TAB PO SCH ×3 (08:34→21:32)
[2021-07-09] MEDS: ENOXAPARIN INJ 40 MG/0.4 ML SYR SQ SCH (08:34)
[2021-07-09] MEDS: NICOTINE 21 MG/24 HR TDSY TD SCH (08:35)
[2021-07-09] MEDS: THIAMINE HCL 200 MG in SODIUM CHLORIDE 0.9% 50 ML IV SCH (08:42)
[2021-07-09] MEDS ORDERED: bisacodyL 5 MG TABEC PO ONE (08:50)
--- NOTE | 2021-07-09 08:54 | Hospitalist Progress Note ---
Date of Service July 09, 2021 Assessment & Plan (1) Paraparesis: Plan: Hx 2014 with no clinical evidence to suspect MS although with positive Lhermitte's sign. LP unremarkable at that time. MRIs in spring without lesions however MRI done at [facility] of cervical spine showed new pontine lesion not present in February. Other cervical/thoracic spine MRIs reported unremarkable at that time. On July 05, MRI with central pontine lesion plus other scattered lesions (felt old in nature). Cord lesion in the cervical spine at C4-5 area. --> Interestingly, she has disc disease particularly in the thoracic spine at T5-6 and C6-7 without cord impingement and no lesions in the thoracic cord. Overall, her lesions in the brain and cervical spine are consistent with MS. LP attempted by radiology 07/05 "dry tap" at different levels even using fluoroscopy, likely 2nd to n/v/dehydration Numbness/tingling with sensory level consistent up to T4 diffusely b/l (?2nd to discs seen at T5-T6, T6-7), although new pontine lesion or cervical spine lesion could cause sensory level but not the cervical spine due to age Per Neurology, suspected patient with MS and has had new symptoms of flare-up recently Given Solu-medrol IV x 3 days (completed 07/08) with some neurologic improvement, but still with significant weakness/pain --> Patient had been getting fairly frequent dosing of morphine 2mg IV (around 4 doses daily--> decreased to 1mg prn), oxycodone 10mg Q6H (appears approximately 3 doses daily) --> discussed with Dr. Villanueva (and patient) and ordered baclofen (can give 10mg BID) to see if any additional relief. ?carbamazepine if needed -- Pain management also consulted Neurology for re-eval tomorrow/further recs PT/OT with recs for rehab -- [facility] when medically stable. Hopefully in next 2 days or so pending control of symptoms/further recs by Neurology tomorrow Continue to monitor (2) Substance abuse: Plan: Psychiatry following; recommend alcohol cessation. No s/sx withdrawal currently On thiamine, folic acid replacement. B12 over normal limits Psych consults as above -- ativan prn (has been getting fairly regularly and will need to wean slowly, could also be contributing to weakness with frequent opiates as above). Started on lexapro 10mg -- titrate as outpatient as tolerated (3) Major depression: Plan: Lexapro initiated; psychiatry input greatly appreciated They also ordered 1mg ativan prn -- has been getting fairly regularly --> will decrease to 0.5mg dosing in attempts to wean off. 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 Unable to tolerate NSAIDs. Baclofen as above, oxycodone for breakthrough. Attempting to limit IV opiates if baclofen successful at control. Pain management also consulted as above (7) Bacterial vaginosis: Plan: Urine culture Gardnerella; appears probable bacterial vaginosismetronidazole 7 days Could also be contributing to discomforts/nausea this afternoon If persistent nausea/fever/abd discomfort can consider further imaging but will hold off for now Plan: Lovenox for DVT prophylaxis Admission and Anticipated Discharge Date Admission Date: July 04, 2021 Subjective Patient evaluated this afternoon, sleeping in bed. Fatigued. Up with therapy although did grimace with ambulation per RN. Still with significant pain requiring continued oxycodone and morphine IV. Discussed trying baclofen for spasms to see if any better control than opiates. States she had bowel movements x 3 today. Will also have pain management see and reach back out to Neurology about possible trial carbamazepine vs Baclofen. Weakness to her R leg persists, improved to the left. Epigastric discomfort and she does endorse history of reflux -- will schedule PPI for prophylaxis. No fever, chills, shortness of breath. Does have some abdominal discomfort, generalized but in LLQ -- recently placed on Metronidazole for Gardnerella UTI which could be contributing. (also just completed course of Augmentin for unknown etiology). Reviewed MRI without evidence for meniscal tear and to elevate/rest/pain control. Also with popliteal cyst. Patient confirms she is planning on rehab in [place] at discharge, although we discussed having pain management weigh in to see about additional recs and will have Neurology stop by again to see tomorrow. No fever, chills, blurred vision, shortness of breath, nausea or vomiting, dysuria reported. Review of Systems Review of Systems: All systems reviewed & are unremarkable except as noted in HPI & below Physical Exam Physical Exam: Constitutional and general: WN/WD, comfortable, resting in bed upon entry, looks older than stated age Head and face: Mild puffiness puffiness, atraumatic Eyes: No scleral icterus, extraocular movements normal Neck: Supple, no JVD appreciated Musculoskeletal: No acute joint swelling, no bony abnormalities Skin/dermatologic/integument: No rash, no purpura Hematologic and lymphatic: pallor none, no petechia Gastrointestinal/abdomen: soft, epigastric tenderness, + bowel sounds, no guarding or rigidity Neurologic: Slight improvement in lower extremity weakness and sensationnote level around the nipple area. decreased sensation to light touch, but does feel pressure --> weakness R leg> L leg, decreased plantar/dorsiflexion R>L, pulses palpable b ilaterally Cardiovascular: Heart rhythm regular, no rub, no murmur, no gallop Respiratory: Chest movements equal, no use of accessory muscles, no adventitious sounds Extremities: No edema, no cyanosis Psychiatry-AOx3, flat affect Results & Data Results & Data ([facility]) Vital Signs (Past 12 Hours) Vital Signs Temp Pulse Resp BP Pulse Ox 07/09/21 08:20 36.1 C L 53 L 18 135/88 98 07/08/21 22:24 36.5 C 71 15 147/92 H 96 Laboratory Results 07/09/21 07/09/21 07/09/21 Range/Units 06:15 06:15 06:15 WBC 8.11 (4.8-10.8) K/uL RBC 3.06 L (4.2-5.4) M/uL Hgb 11.3 L (12.0-16.0) g/dL Hct 36.3 L (37-47) % MCV 118.6 H (80-100) fL MCH 36.9 H (25-34) pg MCHC 31.1 L (32-36) g/dL RDW Std Deviation 66.1 H (36.4-46.3) fL RDW Coeff of Parvez 15.3 H (11.5-14.5) % Plt Count 533 H (130-400) K/uL MPV 10.6 H (7.4-10.4) fL Immature Gran % (Auto) 0.7 % Neut % (Auto) 64.3 % Lymph % (Auto) 22.8 % [place] % (Auto) 12.1 % Eos % (Auto) 0.0 % Baso % (Auto) 0.1 % Neut # (Auto) 5.21 (1.4-6.5) K/uL Lymph # (Auto) 1.85 (1.2-3.4) K/uL [place] # (Auto) 0.98 H (0.11-0.59) K/uL Eos # (Auto) 0.00 (0-0.5) K/uL Baso # (Auto) 0.01 (0-0.2) K/uL Immature Gran # (Auto) 0.06 H (0.00-0.02) K/uL Absolute Nucleated RBC 0.02 H (0-0) K/uL Nucleated RBC % (auto) 0.2 % Macrocytosis Present Stomatocytes 1+ Sodium 142 (136-145) mmol/L Potassium 3.7 (3.5-5.1) mmol/L Chloride 106 (98-107) mmol/L Carbon Dioxide 29 (21-32) mmol/L Anion Gap 7.0 (3-11) BUN 17 (7-18) mg/dl Creatinine 0.54 L (0.6-1.2) mg/dl Est Cr Clr Drug Dosing 150.4 ml/min Est GFR ( Amer) 145.7 ml/min Est GFR (Non-Af Amer) 125.7 ml/min BUN/Creatinine Ratio 31.0 H (10-20) Glucose 107 H (70-99) mg/dl Calcium 9.0 (8.5-10.1) mg/dl Magnesium 1.9 (1.8-2.4) mg/dl Total Bilirubin 0.6 (0.2-1) mg/dl AST 69 H (15-37) U/L ALT 61 (12-78) U/L Alkaline Phosphatase 72 (45-117) U/L Total Creatine Kinase 20 L (26-192) U/L Total Protein 6.2 L (6.4-8.2) gm/dl Albumin 2.6 L (3.4-5.0) gm/dl Globulin 3.6 (2.5-4.0) gm/dl Albumin/Globulin Ratio 0.7 L (0.9-2) Diagnostic Findings Knee MRI 07/08/21 10:12 MRI OF THE RIGHT KNEE CLINICAL HISTORY: Right knee pain. COMPARISON STUDY: Radiographs of the right knee dated 07/01/2021. TECHNIQUE: MRI of the right knee was performed utilizing proton density, T1, and T2-weighted sequences in the axial, sagittal, coronal planes. IV contrast was not administered for this examination. FINDINGS: Menisci: The medial and lateral menisci are intact. Ligaments: The anterior and posterior cruciate ligaments are intact. The medial and lateral collateral ligaments are within normal limits. Extensor mechanism: The extensor mechanism is intact. Hoffa's fat pad is normal in appearance. Articular cartilage and bone: There is mild chondromalacia patella with foci of greater than 50% fissuring of the articular cartilage along the medial patellar facet. No reactive marrow edema is identified. There is also thinning of the articular cartilage along the medial femoral trochlea. There is only mild thinning of the articular cartilage along the weightbearing surfaces of the medial and lateral compartments. No fracture is identified. A calcified fabella is incidentally noted. Joint effusion: None Soft tissues: There is trace popliteal cyst. Venous varicosities are noted posterior to the knee. There is generalized atrophy of the regional musculature. IMPRESSION: 1. There is no evidence of meniscal or ligamentous injury of the right knee 2. Mild chondromalacia patella. 3. Trace joint fluid and trace popliteal cyst. 4. Venous varicosities are noted posterior to the knee. ACT 112: Negative or not required by law. Electronically signed by: Mark Soriano M.D. 07/08/2021 6:06 PM PG Care Time/CCT Total # of Minutes Spent Total Time Spent with Patient: Total time spent is greater than 50% in coordination of care (as documented) at patient's floor/unit and/or counseling patient: Coding Level of Care Code 30211 Subseq Hosp Care Lvl 3 Diagnoses Paraparesis G82.20 Substance abuse F19.10 Major depression F32.9 History of COVID-19 Z86.16 Abnormal LFTs R94.5 Right knee pain M25.561 Bacterial vaginosis N76.0; B96.89
[2021-07-09] MEDS: POLYETHYLENE (MIRALAX) 17 GM PACK PO SCH (10:36)
[2021-07-09] MEDS: LORazepam 1 MG TAB PO PRN (10:39)
[2021-07-09 15:20] LABS: 18KDIGG Band NON-REACTIVE; 23KDIGG Band NON-REACTIVE; 23KDIGM Band NON-REACTIVE; 28KDIGG Band NON-REACTIVE; 30KDIGG Band NON-REACTIVE; 39KDIGG Band NON-REACTIVE; 39KDIGM Band REACTIVE; 41KDIGG Band REACTIVE; 41KDIGM Band NON-REACTIVE; 45KDIGG Band NON-REACTIVE; 58KDIGG Band NON-REACTIVE; 66KDIGG Band NON-REACTIVE; 93KDIGG Band NON-REACTIVE; Lyme Antibodies, WB IgG NEGATIVE (NEGATIVE); Lyme Antibodies, WB IgM NEGATIVE (NEGATIVE)
[2021-07-09] MEDS: PANTOprazole 40 MG TAB PO SCH (15:32)
[2021-07-09] MEDS: BACLOFEN 10 MG TAB PO PRN ×2 (15:35→21:31)
[2021-07-09] MEDS: LORazepam 0.5 MG TAB PO PRN (19:08)
[2021-07-10] MEDS: MoRPHine SULFATE 2 MG/ML CARP IV PRN ×4 (00:36→20:15)
[2021-07-10] MEDS: oxyCODONE HCL IR 5 MG TAB (IMMEDIATE RELEASE) PO PRN ×2 (01:19→08:28)
[2021-07-10] MEDS: ONDANSETRON INJ 2 MG/ML 2 ML VIAL IV PRN (06:10)
[2021-07-10] MEDS: ACETAMINOPHEN 325 MG TAB PO SCH (06:10)
[2021-07-10 06:50] LABS: Basophils # (auto) 0.01 K/uL (0-0.2); Basophils % (auto) 0.1 %; Eosinophils # (auto) 0.04 K/uL (0-0.5); Eosinophils % (auto) 0.5 %; Hematocrit (blood only) 35.8 % (37-47); Hemoglobin 11.5 g/dL (12.0-16.0); Immature Granulocytes # (auto) 0.08 K/uL (0.00-0.02); Immature Granulocytes % (auto) 1.1 %; Lymphocytes # (auto) 3.21 K/uL (1.2-3.4); Lymphocytes % (auto) 43.2 %; Mean Corpuscular Hemoglobin 37.3 pg (25-34); Mean Corpuscular Hgb Conc 32.1 g/dL (32-36); Mean Corpuscular Volume 116.2 fL (80-100); Mean Platelet Volume 10.6 fL (7.4-10.4); Monocytes # (auto) 0.63 K/uL (0.11-0.59); Monocytes % (auto) 8.5 %; Neutrophils # (auto) 3.46 K/uL (1.4-6.5); Neutrophils % (auto) 46.6 %; Platelet Count 514 K/uL (130-400); RDW Coefficient of Variation 15.4 % (11.5-14.5); RDW Standard Deviation 64.5 fL (36.4-46.3); Red Blood Count 3.08 M/uL (4.2-5.4); White Blood Count 7.43 K/uL (4.8-10.8)
[2021-07-10 07:27] LABS: Alanine Aminotransferase 77 U/L (12-78); Albumin Level 2.6 gm/dl (3.4-5.0); Aspartate Aminotransferase 96 U/L (15-37); BUN Creatinine Ratio 44.1 (10-20); Blood Urea Nitrogen 17 mg/dl (7-18); Calcium 9.1 mg/dl (8.5-10.1); Carbon Dioxide 30 mmol/L (21-32); Chloride 107 mmol/L (98-107); Est GFR (African American) > 150.0 ml/min; Est GFR (Non-African American) 138.8 ml/min; Glucose 77 mg/dl (70-99); Potassium 3.3 mmol/L (3.5-5.1); Sodium 143 mmol/L (136-145)
[2021-07-10 07:29] LABS: Albumin Globulin Ratio 0.7 (0.9-2); Alkaline Phosphatase 66 U/L (45-117); Bilirubin,Total 0.6 mg/dl (0.2-1); Globulin 3.6 gm/dl (2.5-4.0); Total Protein 6.2 gm/dl (6.4-8.2)
[2021-07-10 07:50] LABS: Macrocytosis Present; Stomatocytes 1+
--- NOTE | 2021-07-10 09:03 | Pain Management Consultation ---
Date of Consultation July 10, 2021 History of Present Illness Reason for Consultation: Right lower extremity pain Requesting Physician: Ashley Chatterjee PA-C Attending Physician: Jose Nguyen MD History of Present Illness Mrs. Nowak is a 30-year-old obese white female who was admitted on transfer from [facility] with bilateral lower extremity weakness complaints. Patient was reporting onset of lower extremity weakness and altered sensation from approximately her infra mammary line distally in nondermatomal patterns. The patient has history of multiple sclerosis as well as history of lifelong alcohol abuse with history of chronic pancreatitis. The patient has had extensive diagnostic evaluation upon this admission which appears to support diagnosis of multiple sclerosis. Lumbar puncture was attempted x2 but unsuccessful due to "dry tap". She was treated with 3 days of IV Solu-Medrol in which she reported was improving her symptoms. IV Solu-Medrol was discontinued and she feels that her symptoms are increasing in severity with discontinuation of the steroids. Her predominant pain generator remains the right lower extremity around the knee with shooting pain traveling in the thigh and from the knee to the ankle in a nondermatomal pattern. She reports chronic axial low back pain as well. She did undergo MRI of the right knee which was unremarkable. She reports pain with movement, aching and throbbing characteristic while supine. She describes a general sense of weakness with ambulation has been relying on a four-point walker. She reports minimal benefit from IV morphine and from oxycodone util ization. Patient reports that it diminishes her pain from an 8/10 to a 6/10 for short durations only. Patient reports that her pain in the right lower extremity has been most prominent since a fall approximately 3 months ago and has been worsening in severity since that time. She reportedly fell onto her right lower extremity, but details surrounding the fall are unclear. She denies any bowel or bladder incontinence or saddle anesthesia. Patient reports prior success in treatment of pain complaints with gabapentin which she has been off of over the past few months. It was resumed upon this admission. She reports no benefit from utilization of oral baclofen which was started within the past few days. She denies utilization of of opiate therapy in the outpatient setting. She reported no alcohol utilization for approximately 2-3 weeks leading up to her admission. Patient denies any further constitutional complaints. Plan of care discussed with Dr. Odalys Brumfield. Pain Assessment Full Body Front + Back: 1. Right knee 2. Right lower extremity radicular pain-nondermatomal 3. Midepigastric abdominal pain 4. Lumbosacral back pain Pain scale - at its best (0-10): 6 Pain scale - at its worst (0-10): 8 Allergies Allergy/AdvReac Type Severity Reaction Status Date / Time adhesive tape Allergy Verified 04/26/19 21:25 aspirin Allergy Verified 04/26/19 21:25 NSAIDS (Non-Steroidal AdvReac Unknown RASH Unverified 03/16/19 17:20 Anti-Inflamma ibuprofen AdvReac Dizziness Verified 04/26/19 21:25 Home Medications Medication Instructions Recorded Confirmed Type albuterol sulfate 90 mcg/actuation 2 puff INHALATION UD PRN 03/16/19 06/20/19 History aerosol inhaler (Ventolin HFA) lisinopril 5 mg tablet 5 mg PO DAILY 03/16/19 06/20/19 History acetaminophen 500 mg tablet 1,500 mg PO BID tab 06/20/19 06/20/19 History trazodone 50 mg tablet See Rx Instructions .ROUTE 10/20/19 Rx .COMPLEX #30 tablet gabapentin 600 mg tablet See Rx Instructions .ROUTE 04/13/20 Rx .COMPLEX #90 tablet Pain History Pain Intensity Pain scale - at its best (0-10): 6 Pain scale - at its worst (0-10): 8 Patient History Medical History Acute torticollis Bipolar disorder Classic migraine with aura Numbness Pseudotumor cerebri Trichomoniasis UTI (urinary tract infection) Surgical History S/P appendectomy S/P section S/P knee surgery Family History Father Kidney stone Hypertension Dyslipidemia Unknown Sleep apnea Diabetes Kim's palsy Hypertension Cancer Grandmother Myocardial infarction Lymphoma Grandfather Malignant neoplasm of colon Mother Multiple sclerosis Social History (Updated 07/05/21 @ 10:44 by Toby Villanueva MD) Smoking Status: Current every day smoker Tobacco Type: Cigarettes Age Started Using Tobacco: 10; packs per day: 1.5; Do You Dip or Chew Tobacco: No; Hx Alcohol Use: Yes Alcohol type: hard liquor Alcohol type Comment: rum Alcoh ol Intake Frequency Comment: was 1/5 per day until about 2 months ago now is "occasional" Preferred Language: Swedish Communication Ability: Effective Beliefs That Will Affect Care: None marital status: single Current Living Situation: Parent Current Living Situation Comment: Lives with 2 children 1 & 7, pts father is currently living with them to current occupational status: unemployed Feels Safe at Home: Yes Safety Concerns: Feels Safe At This Time Assistive Devices: Glasses and Walker Assistive Devices Comment: Has dentures but they are broken, no teeth Physical Exam Physical Exam: General: Patient was sleeping upon entering the exam room. Patient was arousable. She appeared to be in no acute distress. Speech and thought process appropriate. Mood and affect appropriate. Cognition intact. Head: Normocephalic and atraumatic. ENT: No evidence of nasal or oral mucosal lesions. Mucous membranes are moist. Eyes: Pupils equal round reactive to light. Neck: Supple without adenopathy and full range of motion. Chest: Patient is tender to palpation over the costosternal junction. Patient is tender with AP compression of the lower chest wall along the costal margin bilaterally. Patient nontender with lateral compression of the chest wall. Abdomen: Soft and nondistended. No organomegaly. Bowel sounds active. Patient patient tender to palpation in the midepigastric, left and right upper quadrant region without rebound or guarding. No organomegaly was appreciated. Back/spine: Patient has fairly diffuse tenderness over the midline and paravertebral region of the entire thoracic and lumbar spinal regions which is nonfocal. Patient has hyperalgesic response to palpation over the lumbosacral r egion which is nonfocal. Lower extremities: Patient is tender over the entire right and left knee region to palpation without visible abnormality. Tender throughout range of motion which is not limited. Exquisitely tender over the pes anserine insertion. SLR maneuvering increased pain right greater than left-sided. Sensation is diminished in the bilateral lower extremities to sharp and dull in nondermatomal pattern. Strength testing 4/5 throughout without focal deficit. Neurologic: Cranial nerves grossly intact. Ambulatory function not witnessed. Babinski downgoing bilaterally.
[2021-07-10] MEDS: LORazepam 0.5 MG TAB PO PRN ×3 (09:45→21:06)
[2021-07-10] MEDS: THIAMINE HCL 200 MG in SODIUM CHLORIDE 0.9% 50 ML IV SCH (09:45)
[2021-07-10] MEDS: metroNIDAZOLE 500 MG TAB PO SCH ×2 (09:46→20:14)
[2021-07-10] MEDS: FOLIC ACID 1 MG TAB PO SCH (09:46)
[2021-07-10] MEDS: ESCITALOPRAM OXALATE 10 MG TAB PO SCH (09:46)
[2021-07-10] MEDS: PANTOprazole 40 MG TAB PO SCH (09:47)
[2021-07-10] MEDS: ENOXAPARIN INJ 40 MG/0.4 ML SYR SQ SCH (09:47)
[2021-07-10] MEDS ORDERED: POTASSIUM CHLORIDE CRTAB 20 MEQ TABCR PO STA (09:47)
--- NOTE | 2021-07-10 09:47 | Hospitalist Progress Note ---
Date of Service July 10, 2021 Assessment & Plan (1) Paraparesis: Plan: Hx 2014 with no clinical evidence to suspect MS although with positive Lhermitte's sign. LP unremarkable at that time. MRIs in spring without lesions however MRI done at [facility] of cervical spine showed new pontine lesion not present in February. Other cervical/thoracic spine MRIs reported unremarkable at that time. On July 05, MRI with central pontine lesion plus other scattered lesions (felt old in nature). Cord lesion in the cervical spine at C4-5 area. --> Interestingly, she has disc disease particularly in the thoracic spine at T5-6 and C6-7 without cord impingement and no lesions in the thoracic cord. Overall, her lesions in the brain and cervical spine are consistent with MS. LP attempted by radiology 07/05 "dry tap" at different levels even using fluoroscopy, likely 2nd to n/v/dehydration Numbness/tingling with sensory level consistent up to T4 diffusely b/l (?2nd to discs seen at T5-T6, T6-7), although new pontine lesion or cervical spine lesion could cause sensory level but not the cervical spine due to age Per Neurology, suspected patient with MS and has had new symptoms of flare-up recently Given Solu-medrol IV x 3 days (completed 07/08) with some neurologic improvement, but still with significant weakness/pain --> Patient had been getting fairly frequent dosing of morphine 2mg IV (around 4 doses daily--> decreased to 1mg prn however pain persist and increased back to 2mg prn), oxycodone 10mg Q6H (appears approximately 3 doses daily) --> discussed with Dr. Villanueva (and patient) and ordered baclofen (can give 10mg BID) to see if any additional relief --> changed to scheduled 10mg BID today Per Neurology -- also adding topiramate 25mg daily and can titrate for migraines, requip for RLS at night (can increase to 0.5mg after 5 days) Also sent for Aquaporin 4 antibody and myelin oligodendrocyte glycoprotein antibody to help exclude NMP spectrum disorderes Would reattempt LP aas outpatient for standard MS panel Pain management also consulted - --MRI lumbar spine pending --Possible need for medrol dose pack unless contraindicated Ortho consulted to continued R knee pain --> spoke with PA, possible pes bursa -- per ortho if pain persists tomorrow in same location for possible injection. PT/OT with recs for rehab -- [facility] when medically stable. Hopefully in next 2 days or so pending control of symptoms/further recs by Neurology tomorrow Continue to monitor (2) Substance abuse: Plan: Psychiatry following; recommend alcohol cessation. No s/sx withdrawal currently On thiamine, folic acid replacement. B12 over normal limits Psych consults as above -- ativan prn (has been getting fairly regularly and will need to wean slowly, could also be contributing to weakness with frequent opiates as above). Started on lexapro 10mg -- titrate as outpatient as tolerated (3) Major depression: Plan: Lexapro initiated; psychiatry input greatly appreciated They also ordered 1mg ativan prn -- has been getting fairly regularly --> will decrease to 0.5mg dosing in attempts to wean off. IVP for MRI as above (4) History of COVID-19: Plan: Reported + at [facility] in past --> repeat testing NEGATIVE (5) Abnormal LFTs: Plan: Pattern consistent with alcohol induced stable. cont monitor (6) Right knee pain: Plan: MRI without meniscal tear, does note chondromalacia patallae. Unable to tolerate NSAIDs. Baclofen as above, oxycodone for breakthrough. Attempting to limit IV opiates if baclofen successful at control. Pain management also consulted as above (7) Bacterial vaginosis: Plan: Urine culture Gardnerella; appears probable bacterial vaginosismetronidazole 7 days (on day 3) Could also be contributing to discomforts/nausea as well -- improved Plan: Lovenox for DVT prophylaxis Admission and Anticipated Discharge Date Admission Date: July 04, 2021 Subjective Patient evaluated this morning. Much more awake/alert. Calvert better yesterday afternoon but had a rough night. Numbness still to the nipple line to light touch but able to sense pressure. Seen by Neurology this morning with recs for new meds for pain control and pain management with plans for lumbar spine MRI. She states she will need IV ativan prior to MRI due to claustrophobic and PO not effective for that. She notes continued pain to her medial knee -- consideration for medrol dose pack per pain management. Will try meds recd by Neurology first, add steroids if needed and await MRI. Chest discomfort, reproducible on palpation and possible from use from walker for ambulation -- no radiation/shortness of breath/positional changes -- will try voltaren topical. No fever, chills. Eating/drinking and reports continues to move her bowels without issue. Questions/concerns addressed at this time. Review of Systems Review of Systems: All systems reviewed & are unremarkable except as noted in HPI & below Physical Exam Physical Exam: Constitutional and general: WN/WD, comfortable, up in bed on laptop, looks older than stated age Head and face: Mild puffiness puffiness, atraumatic Eyes: No scleral icterus, extraocular movements normal Neck: Supple, no JVD appreciated Musculoskeletal: No acute joint swelling, no bony abnormalities -- exquisite tenderness to palpation medial aspect of R knee, pain with ROM Skin/dermatologic/integument: No rash, no purpura Hematologic and lymphatic: pallor none, no petechia Gastrointestinal/abdomen: soft, epigastric tenderness, + bowel sounds, no guarding or rigidity Neurologic: stable lower extremity weakness and sensationnote level around the nipple area. decreased sensation to light touch, but does feel pressure. --> weakness R leg> L leg, decreased plantar/dorsiflexion R>L, pulses palpable bilaterally Cardiovascular: Heart rhythm regular, no rub, no murmur, no gallop Respiratory: Chest movements equal, no use of accessory muscles, no adventitious sounds Extremities: No edema, no cyanosis Psychiatry-AOx3, flat affect Results & Data Results & Data ([facility]) Vital Signs (Past 12 Hours) Vital Signs Temp Pulse Resp BP Pulse Ox 07/10/21 07:25 37.0 C 76 16 92/58 L 96 07/09/21 23:25 36.5 C 67 18 103/67 97 Laboratory Results 07/10/21 07/10/21 07/09/21 Range/Units 06:15 06:15 06:15 WBC 7.43 (4.8-10.8) K/uL RBC 3.08 L (4.2-5.4) M/uL Hgb 11.5 L (12.0-16.0) g/dL Hct 35.8 L (37-47) % MCV 116.2 H (80-100) fL MCH 37.3 H (25-34) pg MCHC 32.1 (32-36) g/dL RDW Std Deviation 64.5 H (36.4-46.3) fL RDW Coeff of Parvez 15.4 H (11.5-14.5) % Plt Count 514 H (130-400) K/uL MPV 10.6 H (7.4-10.4) fL Immature Gran % (Auto) 1.1 % Neut % (Auto) 46.6 % Lymph % (Auto) 43.2 % Hughes % (Auto) 8.5 % Eos % (Auto) 0.5 % Baso % (Auto) 0.1 % Neut # (Auto) 3.46 (1.4-6.5) K/uL Lymph # (Auto) 3.21 (1.2-3.4) K/uL Hughes # (Auto) 0.63 H (0.11-0.59) K/uL Eos # (Auto) 0.04 (0-0.5) K/uL Baso # (Auto) 0.01 (0-0.2) K/uL Immature Gran # (Auto) 0.08 H (0.00-0.02) K/uL Macrocytosis Present Stomatocytes 1+ Sodium 143 (136-145) mmol/L Potassium 3.3 L (3.5-5.1) mmol/L Chloride 107 (98-107) mmol/L Carbon Dioxide 30 (21-32) mmol/L Anion Gap 7.0 (3-11) BUN 17 (7-18) mg/dl Creatinine 0.40 L (0.6-1.2) mg/dl Est Cr Clr Drug Dosing 203.0 ml/min Est GFR ( Amer) > 150.0 ml/min Est GFR (Non-Af Amer) 138.8 ml/min BUN/Creatinine Ratio 44.1 H (10-20) Glucose 77 (70-99) mg/dl Calcium 9.1 (8.5-10.1) mg/dl Magnesium 2.0 (1.8-2.4) mg/dl Total Bilirubin 0.6 (0.2-1) mg/dl AST 96 H (15-37) U/L ALT 77 (12-78) U/L Alkaline Phosphatase 66 (45-117) U/L Total Creatine Kinase 20 L (26-192) U/L Total Protein 6.2 L (6.4-8.2) gm/dl Albumin 2.6 L (3.4-5.0) gm/dl Globulin 3.6 (2.5-4.0) gm/dl Albumin/Globulin Ratio 0.7 L (0.9-2) Lyme IgG (Western Blot) (NEGATIVE) Lyme IgG 18 kDa Band Lyme IgG 23 kDa Band Lyme IgG 28 kDa Band Lyme IgG 30 kDa Band Lyme IgG 39 kDa Band Lyme IgG 41 kDa Band Lyme IgG 45 kDa Band Lyme IgG 58 kDa Band Lyme IgG 66 kDa Band Lyme IgG 93 kDa Band Lyme IgM Ab (WB) (NEGATIVE) Lyme IgM 23 kDa Band Lyme IgM 39 kDa Band Lyme IgM 41 kDa Band 08/19/21 Range/Units 11:55 WBC (4.8-10.8) K/uL RBC (4.2-5.4) M/uL Hgb (12.0-16.0) g/dL Hct (37-47) % MCV (80-100) fL MCH (25-34) pg MCHC (32-36) g/dL RDW Std Deviation (36.4-46.3) fL RDW Coeff of Parvez (11.5-14.5) % Plt Count (130-400) K/uL MPV (7.4-10.4) fL Immature Gran % (Auto) % Neut % (Auto) % Lymph % (Auto) % Hughes % (Auto) % Eos % (Auto) % Baso % (Auto) % Neut # (Auto) (1.4-6.5) K/uL Lymph # (Auto) (1.2-3.4) K/uL Hughes # (Auto) (0.11-0.59) K/uL Eos # (Auto) (0-0.5) K/uL Baso # (Auto) (0-0.2) K/uL Immature Gran # (Auto) (0.00-0.02) K/uL Macrocytosis Stomatocytes Sodium (136-145) mmol/L Potassium (3.5-5.1) mmol/L Chloride (98-107) mmol/L Carbon Dioxide (21-32) mmol/L Anion Gap (3-11) BUN (7-18) mg/dl Creatinine (0.6-1.2) mg/dl Est Cr Clr Drug Dosing ml/min Est GFR ( Amer) ml/min Est GFR (Non-Af Amer) ml/min BUN/Creatinine Ratio (10-20) Glucose (70-99) mg/dl Calcium (8.5-10.1) mg/dl Magnesium (1.8-2.4) mg/dl Total Bilirubin (0.2-1) mg/dl AST (15-37) U/L ALT (12-78) U/L Alkaline Phosphatase (45-117) U/L Total Creatine Kinase (26-192) U/L Total Protein (6.4-8.2) gm/dl Albumin (3.4-5.0) gm/dl Globulin (2.5-4.0) gm/dl Albumin/Globulin Ratio (0.9-2) Lyme IgG (Western Blot) NEGATIVE (NEGATIVE) Lyme IgG 18 kDa Band NON-REACTIVE Lyme IgG 23 kDa Band NON-REACTIVE Lyme IgG 28 kDa Band NON-REACTIVE Lyme IgG 30 kDa Band NON-REACTIVE Lyme IgG 39 kDa Band NON-REACTIVE Lyme IgG 41 kDa Band REACTIVE A Lyme IgG 45 kDa Band NON-REACTIVE Lyme IgG 58 kDa Band NON-REACTIVE Lyme IgG 66 kDa Band NON-REACTIVE Lyme IgG 93 kDa Band NON-REACTIVE Lyme IgM Ab (WB) NEGATIVE (NEGATIVE) Lyme IgM 23 kDa Band NON-REACTIVE Lyme IgM 39 kDa Band REACTIVE A Lyme IgM 41 kDa Band NON-REACTIVE PG Care Time/CCT Total # of Minutes Spent Total Time Spent with Patient: Total time spent is greater than 50% in coordination of care (as documented) at patient's floor/unit and/or counseling patient: Coding Level of Care Code 81723 Subseq Hosp Care Lvl 3 Diagnoses Paraparesis G82.20 Substance abuse F19.10 Major depression F32.9 History of COVID-19 Z86.16 Abnormal LFTs R94.5 Right knee pain M25.561 Bacterial vaginosis N76.0; B96.89
[2021-07-10] MEDS: NICOTINE 21 MG/24 HR TDSY TD SCH (09:48)
[2021-07-10] MEDS: POLYETHYLENE (MIRALAX) 17 GM PACK PO SCH (09:48)
[2021-07-10] MEDS ORDERED: LORazepam 1 MG/2 ML VIAL IV STA (10:16)
[2021-07-10] MEDS ORDERED: MoRPHine SULFATE 2 MG/ML CARP IV PRN (10:16)
[2021-07-10] MEDS: GABAPENTIN 800 MG TAB PO SCH ×3 (10:40→20:15)
--- NOTE | 2021-07-10 10:57 | Neurology Progress Note ---
Date of Service July 10, 2021 Assessment & Plan (1) Multiple sclerosis: (2) Migraine: (3) RLS (restless legs syndrome): Plan: Probable MS although patient did have a negative lumbar puncture at our institution in 2014. 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 Was diagnosed with bilateral papilledema/pseudotumor cerebri about 10 years ago although bilateral optic neuritis with associated disc swelling could have looked similar. She did have a normal opening pressure with her spinal tap done here in 2015 as well. Would recommend checking an Aquaporin 4 antibody (AQP4) and myelin oligodendrocyte glycoprotein (MOG) antibody. These labs are serum antibody tests that are useful to exclude NMO spectrum disorders. Would reattempt lumbar puncture as an outpatient for standard MS panel. Agree with gabapentin to address chronic pain and spasms. Agree with baclofen as well but would change to 10 mg twice daily rather than as needed. Would recommend adding topiramate to address patient's migraines. Start with 25 mg twice daily, increase to 50 mg twice daily after 1 week. Would also consider adding ropinirole in the evening to address restless leg syndrome. Would start with 0.25 mg taken 2 hours before bedtime, increase to 0.5 mg after 5 days. Patient may follow-up with Dr. Villanueva or Ilene Mccord in neurology clinic. Admission and Anticipated Discharge Date Admission Date: July 04, 2021 Subjective Follow-up for suspected MS and other symptoms The patient continues to complain of incomplete numbness from the chest down with associated weakness of the legs, able to stand up on her own but requires a walker. Complains of some urinary urgency as well. The symptoms have been persistent for the past few months. Also complains of intermittent muscular cramping in the legs as well as a compulsion to kick and move the limbs while at rest. Complains of chronic blurry vision affecting the right eye, no diplopia, no significant associated retro-orbital or ocular pain. Patient also complains of episodic migrainous headache with associated nausea and light and sound sensitivity, about 2 episodes per month, present for many years. No menstrual associated pattern. History notable for bilateral papilledema occurring about 10 years ago with associated vision loss, worse for the right eye, have been diagnosed with pseudotumor cerebri, treated with Diamox. This issue has been stable without treatment for several years. Patient also recalls being told that she had inflammation in her optic nerves although it is unclear if she has ever been diagnosed with optic neuritis. Review of Systems Eyes: as per Subjective / HPI Neurologic: as per Subjective / HPI, + gait abnormality, + loss of sensation, + paresthesia, + restless legs and + headache(s) Results & Data ([facility]) Vital Signs (Past 12 Hours) Vital Signs Temp Pulse Resp BP Pulse Ox 07/10/21 07:25 37.0 C 76 16 92/58 L 96 07/09/21 23:25 36.5 C 67 18 103/67 97 Laboratory Results WBC 7.43, hemoglobin 11.5, hematocrit 35.8, platelet count 514, ESR 37, sodium 143, potassium 3.3, BUN 17, creatinine 0.40, glucose 77, AST 96, ALT 77, total CK 20, vitamin B12 1034, TSH 1.580, Lyme Western blot negative. Diagnostic Findings I did review the images of this patient's MRI of the brain as well as cervical and thoracic spine. Overall, has minimal demyelinating changes within the cerebral hemispheres although does have a focus of increased signal within the central dimitri without associated gadolinium enhancement that may be consistent with a focus of chronic demyelination. There is a focus of increased signal within the cervical spinal cord as well, seen posteriorly, at the C4-5 level. She does have a disc protrusion at this level although does not have significant central canal stenosis. No lesions within the thoracic spinal cord identified although she does have some disc degeneration at T5-6 and T6-7 with associated mild central canal stenosis. Exam (Neuro) Constitutional: well developed and well nourished; no acute distress Eyes: PERRL and EOM intact bilaterally Neurologic: Oriented to:: Person, Place and Time Memory: Short Term Intact and Remote Intact Attention: Span Intact and Concentration Intact Speech Fluency: negative Dysarthria or Dysfluency Fund of Knowledge: Current Events, Past History and Vocabulary Cranial Nerves: Normal III, IV, (There is no relative afferent pupillary defect.) and VII; Abnorm II (Decreased visual acuity for the right eye noted.) Motor Strength: Normal Upper Extremities; negative Normal Lower Extremities (Bilateral lower extremity weakness noted although able to stand up at bedside on on, requires walker for balance. No foot drop or atrophy.) Spasticity: None Deep Tendon Reflexes: Rt Triceps: 3+, Lt Triceps: 3+, Rt Biceps: 3+, Lt Biceps: 3+, Rt Brachioradialis: 3+, Lt Brachioradialis: 3+, Rt Patellar: 3+, Lt Patellar: 3+, Rt Ankle: 2+ and Lt Ankle: 2+ Details: Able to stand up on her own at bedside, requires walker for balance. Patient has an incomplete sensory level from T4 down. Coding Level of Care Code 34642 Subseq Hosp Care Lvl 3 Diagnoses Multiple sclerosis G35 Migraine G43.909 RLS (restless legs syndrome) G25.81
[2021-07-10] MEDS ORDERED: LORazepam 2 MG/4 ML VIAL ONE (13:03)
--- NOTE | 2021-07-10 13:15 | Orthopedic Consultation ---
Date of Consultation July 10, 2021 Assessment & Plan (1) Right knee pain: CT scan reviewed. Will discuss case with [facility] physicians. Patient states that she has had frequent falls over the past some of it due to her knee buckling. She examines like a Pez bursa inflammation and also some laxity with her lateral collateral ligament with discomfort. The previous day, the lateral collateral discomfort was more prominent. Today it appears to be the pes bursa. We can try a Lidoderm patch over the pes bursa region. We will also order an immobilizer for her right knee for ambulation purposes. She can continue to be weightbearing as tolerated. We can recheck the patient tomorrow. If her pes bursa continues to be the main source of her knee discomfort, we can plan for a steroid injection in that region.Thoracic MRI showing multilevel neural foraminal narrowing, moderate on the right at T7-T8. Lumbar MRI pending. I discussed the case with Ashley Chatterjee PA-C. We will continue to follow. Pain medications as per pain management team. History of Present Illness Reason for Consultation: Right Knee Pain Attending Physician: Jose Nguyen MD History of Present Illness Patient is a 30-year-old obese white female who was admitted on transfer from [facility] with bilateral lower extremity weakness complaints. Patient was reporting onset of lower extremity weakness and altered sensation from approximately her infra mammary line distally in nondermatomal patterns. The patient has history of multiple sclerosis as well as history of lifelong alcohol abuse with history of chronic pancreatitis. The patient has had extensive diagnostic evaluation upon this admission which appears to support diagnosis of multiple sclerosis. Patient has been having sensory deficits as well as weakness over period of time. Cervical, thoracic MRIs have been taken and MRI of the lumbar spine has been ordered. We have been consulted mainly for right knee pain. Right knee MRI was performed with no ligamentous or meniscal injuries. Mild chondromalacia of the patella; popliteal cyst; trace effusion. In speaking with Ashley Chatterjee PA-C, patient was having moderate pain over the lateral aspect of of the joint line yesterday. Today this is changed to moderate pain over the medial joint line of the knee. Patient is currently awake and alert. She states that she has been dealing with overt pain for quite some time. She apparently has been taking chronic narcotics and has had some issue with substance abuse with alcohol. Today, she states that she is having pain over most of her knee with medial and lateral joint lines being prominent. She states that the pain she is having in her knee is shooting down to her ankle at times. She is also been having low back pain with pains radiating down the right lower extremity. She also states that when she is ambulating she has weakness and that her knee seems to buckle to the lateral aspect and almost completely give out. No other complaints at this time. Allergies Allergy/AdvReac Type Severity Reaction Status Date / Time adhesive tape Allergy Verified 04/26/19 21:25 aspirin Allergy Verified 04/26/19 21:25 NSAIDS (Non-Steroidal AdvReac Unknown RASH Unverified 03/16/19 17:20 Anti-Inflamma ibuprofen AdvReac Dizziness Verified 04/26/19 21:25 Home Medications Medication Instructions Recorded Confirmed Type albuterol sulfate 90 mcg/actuation 2 puff INHALATION UD PRN 03/16/19 06/20/19 History aerosol inhaler (Ventolin HFA) lisinopril 5 mg tablet 5 mg PO DAILY 03/16/19 06/20/19 History acetaminophen 500 mg tablet 1,500 mg PO BID tab 06/20/19 06/20/19 History trazodone 50 mg tablet See Rx Instructions .ROUTE 10/20/19 Rx .COMPLEX #30 tablet gabapentin 600 mg tablet See Rx Instructions .ROUTE 04/13/20 Rx .COMPLEX #90 tablet Patient History Medical History Acute torticollis Bipolar disorder Classic migraine with aura Numbness Pseudotumor cerebri Trichomoniasis UTI (urinary tract infection) Surgical History S/P appendectomy S/P section S/P knee surgery Family History Father Kidney stone Hypertension Dyslipidemia Unknown Sleep apnea Diabetes Kim's palsy Hypertension Cancer Grandmother Myocardial infarction Lymphoma Grandfather Malignant neoplasm of colon Mother Multiple sclerosis Social History Smoking Status: Current every day smoker Tobacco Type: Cigarettes Age Started Using Tobacco: 10; packs per day: 1.5; Do You Dip or Chew Tobacco: No; Hx Alcohol Use: Yes Alcohol type: hard liquor Alcohol type Comment: rum Alcohol Intake Frequency Comment: was 1/5 per day until about 2 months ago now is "occasional" Preferred Language: Yakut Communication Ability: Effective Beliefs That Will Affect Care: None marital status: single Current Living Situation: Parent Current Living Situation Comment: Lives with 2 children 1 & 7, pts father is currently living with them to current occupational status: unemployed Feels Safe at Home: Yes Safety Concerns: Feels Safe At This Time Assistive Devices: Walker Assistive Devices Comment: Has dentures but they are broken, no teeth Physical Exam Physical Exam: On examination, her knee appears benign. No overt swelling or edema. No erythema. I am able to lightly palpate the knee which causes her a small amount of discomfort. Palpation over the patella with deep palpation causes her some mild discomfort. She states that she has generalized pain over the knee during the process. Medial joint line appears to be is mostly nontender on palpation. Just below the joint line at the pes anserine bursa, she has moderate pain on palpation. No overt pain at the tibial tubercle and when palpating over the lateral joint line she does have mild to moderate pain near the lateral collateral ligament but is more of a diffuse tenderness and not point tenderness. Anterior drawer is negative. She has a solid endpoint. Medial collateral appears stable with mild discomfort when stressed. Lateral collateral has some laxity to it with some mild discomfort. She is able to go through active and passive range of motion with mild amount of discomfort. No crepitus is felt at this time. I cannot appreciate any popping or clicking during range of motion and no areas of where the knee is catching and causing her increased pain. She has a weak straight leg raise. Plantar flexion and dorsiflexion is about 3/5. Dorsalis pedis pulse present. Capillary refill is less than 2 seconds. Results & Data ([facility]) Vital Signs (Past 12 Hours) Vital Signs Temp Pulse Resp BP Pulse Ox 07/10/21 07:25 37.0 C 76 16 92/58 L 96 Diagnostic Findings Patient: VIVEK GUTIERREZ Date: 07/04/21MR#: [id number]: [address] [facility] [address]Acct ID:[id number]: Date: 1990[facility] Zip: [id number]: [id number]: 3WSex: FRoom/Bed: [id number] Phy: Nilay Biggs MDDiagnosis: MS FLARE UP, AMBULATORY DYSFUNCTIONPri Phy: GWENDOLYN,NOService Date: 07/08/21Fam Phy:Interpreting Phy: Mark Soriano MDAdmit Phy: Lance Junior M.D. Ordering Phy: Nilay Biggs MD cc: ~ MRI OF THE RIGHT KNEE CLINICAL HISTORY: Right knee pain. COMPARISON STUDY: Radiographs of the right knee dated 07/01/2021. TECHNIQUE: MRI of the right knee was performed utilizing proton density, T1, and T2-weighted sequences in the axial, sagittal, coronal planes. IV contrast was not administered for this examination. FINDINGS: Menisci: The medial and lateral menisci are intact. Ligaments: The anterior and posterior cruciate ligaments are intact. The medial and lateral collateral ligaments are within normal limits. Extensor mechanism: The extensor mechanism is intact. Hoffa's fat pad is normal in appearance. Articular cartilage and bone: There is mild chondromalacia patella with foci of greater than 50% fissuring of the articular cartilage along the medial patellar facet. No reactive marrow edema is identified. There is also thinning of the articular cartilage along the medial femoral trochlea. There is only mild thinning of the articular cartilage along the weightbearing surfaces of the medial and lateral compartments. No fracture is identified. A calcified fabella is incidentally noted. Joint effusion: None Soft tissues: There is trace popliteal cyst. Venous varicosities are noted posterior to the knee. There is generalized atrophy of the regional musculature. IMPRESSION: 1. There is no evidence of meniscal or ligamentous injury of the right knee 2. Mild chondromalacia patella. 3. Trace joint fluid and trace popliteal cyst. 4. Venous varicosities are noted posterior to the knee.
[2021-07-10] MEDS: HYDROCODONE/ACETAMINOPHEN 7.5/325MG TAB PO PRN ×2 (14:04→20:16)
[2021-07-10] MEDS ORDERED: GADOBUTROL 65ML VIAL IV ONE (14:40)
[2021-07-10] MEDS ORDERED: methylPREDNISolone 4 MG TAB, 6 DAY TAPER PO SCH (15:00)
[2021-07-10] MEDS: DICLOFENAC SOD 1% GEL 100 GM TUBE EXT SCH ×2 (15:08→20:13)
--- NOTE | 2021-07-10 15:57 | Magnetic Resonance Report ---
MRI OF THE LUMBAR SPINE COMBO CLINICAL HISTORY: Weakness. Loss of balance. Right leg pain. COMPARISON STUDY: Radiographs of the lumbar spine dated 02/18/2016. Abdominal CT dated 06/28/2021. TECHNIQUE: MRI of the lumbar spine is performed utilizing various T1 and T2-weighted sequences in the axial and sagittal planes. Contrast-enhanced sequences are acquired following the IV administration of 8 cc of Gadavist. FINDINGS: Lumbar spine: Vertebral body height and alignment are maintained throughout the lumbar spine. Normal marrow signal intensity is preserved throughout the visualized bony structures. The transverse and sp inous processes are intact. There is no spondylolysis. No destructive bony lesion is seen. Intervertebral discs: Normal in height and signal intensity. Spinal cord: Imaged portions of the spinal cord are normal in morphology and signal intensity. The co nus medullaris terminates at the level of L1. The nerve roots of the cauda equina are normal in morph ology. No abnormal postcontrast enhancement is identified. There is no evidence of epidural fluid col lection. L1-L2: Unremarkable. L2-L3: Minimal facet arthropathy is of no consequence. The central canal and neural foramina are cosby nt. L3-L4: Minimal facet arthropathy is of no consequence. The central canal and neural foramina are cosby nt. L4-L5: There is minimal posterior disc bulge. There is narrowing of the central canal at this level w hich is largely developmental. The minimum AP diameter measures 6 mm. There is mild bilateral subarti cular stenosis. In conjunction with facet arthropathy there is mild bilateral neural foraminal narrow ing. L5-S1: There is minimal posterior disc bulge. There is no significant acquired compromise of the cent ral canal. Mild narrowing of the central canal at this level is likely developmental. There is also m ild epidural lipomatosis. The minimum AP diameter measures 5.5 mm. There is mild bilateral subarticul ar stenosis. In conjunction with facet arthropathy there is minimal bilateral neural foraminal narrow ing. Sacrum: The visualized sacrum is normal in morphology and signal intensity. Soft tissues: The paraspinous soft tissues are normal as visualized. The retroperitoneal structures a re grossly unremarkable but incompletely evaluated. IMPRESSION: 1. There is no disc herniation, acquired compromise of the central canal, or significant neural mj inal narrowing seen throughout the lumbar spine. 2. No destructive bony process is identified. 3. The visualized spinal cord and cauda equina are normal in appearance with no abnormal postcontrast enhancement identified. Dictated: 07/10/2021 3:20 PM Transcribed: 07/10/2021 3:54 PM [place] [id number] TAMMY_Aaron Electronically signed by: Mark Soriano M.D. 07/10/2021 3:55 PM
[2021-07-10] MEDS: methylPREDNISolone 4 MG TAB PO SCH ×2 (17:41→20:13)
[2021-07-10] MEDS: BACLOFEN 10 MG TAB PO SCH (20:15)
[2021-07-10] MEDS: TOPIRAMATE 25 MG TAB PO SCH (20:15)
[2021-07-10] MEDS ORDERED: rOPINIRole HCL 0.25 MG TABLET PO SCH (21:00)
[2021-07-11] MEDS: MoRPHine SULFATE 2 MG/ML CARP IV PRN ×6 (00:19→20:35)
[2021-07-11] MEDS: HYDROCODONE/ACETAMINOPHEN 7.5/325MG TAB PO PRN ×3 (02:20→17:36)
[2021-07-11] MEDS: methylPREDNISolone 4 MG TAB PO SCH ×3 (06:00→17:36)
[2021-07-11 06:55] LABS: Basophils # (auto) 0.01 K/uL (0-0.2); Basophils % (auto) 0.1 %; Eosinophils # (auto) 0.03 K/uL (0-0.5); Eosinophils % (auto) 0.4 %; Hematocrit (blood only) 35.7 % (37-47); Hemoglobin 11.6 g/dL (12.0-16.0); Immature Granulocytes # (auto) 0.07 K/uL (0.00-0.02); Immature Granulocytes % (auto) 0.9 %; Lymphocytes % (auto) 23.4 %; Mean Corpuscular Hemoglobin 37.4 pg (25-34); Mean Corpuscular Hgb Conc 32.5 g/dL (32-36); Mean Corpuscular Volume 115.2 fL (80-100); Mean Platelet Volume 10.2 fL (7.4-10.4); Monocytes # (auto) 0.39 K/uL (0.11-0.59); Monocytes % (auto) 5.1 %; Neutrophils # (auto) 5.39 K/uL (1.4-6.5); Neutrophils % (auto) 70.1 %; Platelet Count 541 K/uL (130-400); RDW Coefficient of Variation 15.3 % (11.5-14.5); White Blood Count 7.69 K/uL (4.8-10.8)
[2021-07-11 07:18] LABS: BUN Creatinine Ratio 32.4 (10-20); Blood Urea Nitrogen 14 mg/dl (7-18); Calcium 9.3 mg/dl (8.5-10.1); Carbon Dioxide 30 mmol/L (21-32); Chloride 105 mmol/L (98-107); Creatinine Clr Calc Pharmacy 188.8 ml/min; Est GFR (African American) > 150.0 ml/min; Est GFR (Non-African American) 135.5 ml/min; Glucose 112 mg/dl (70-99); Macrocytosis Present; Magnesium 2.1 mg/dl (1.8-2.4); Potassium 4.2 mmol/L (3.5-5.1); Sodium 140 mmol/L (136-145)
--- NOTE | 2021-07-11 08:17 | Pain Management Progress Note ---
Date of Service July 11, 2021 Assessment & Plan (1) Right knee pain: (2) Pain of right lower extremity: (3) Multiple sclerosis: (4) Substance abuse: (5) Major depression: Plan: 1. Lumbar MRI findings reviewed with patient. There is no obvious etiology explaining her primary complaint of right-sided knee pain. Ortho potentially planning pes anserine bursa injection. 2. Maintain gabapentin 800 mg 3 times daily 3. Complete Medrol Dosepak-expectations discussed 4. Patient was again encouraged to limit utilization of IV morphine. She may continue with hydrocodone for as needed breakthrough pain. Would recommend limited access to opiate therapy upon discharge due to her comorbid medical conditions. 5. Thank you for allowing us to participate in the care of this patient. Pain service will sign off on patient at this time. Please contact pain service for reevaluation as needed. Admission and Anticipated Discharge Date Admission Date: July 04, 2021 [address]ive Mrs. Nowak is seen in follow-up today after undergoing MRI of the lumbar spine. Patient is indicating less frequent and severe pain in the right knee region and lower extremity. Patient rates her pain at a 5-7/10. Patient reports that IV morphine and hydrocodone have been effective at diminishing her pain. She continues with primary complaint of pain surrounding the right knee region with some radiation into the thigh and to the level of the ankle in a nondermatomal pattern. Patient is tolerating titration of gabapentin at this time without notable side effect. Medrol Dosepak was initiated yesterday by hospitalist team. Patient reportedly slept relatively well but did need to utilize the IV morphine throughout the night due to the throbbing and aching characteristic pain of the right knee region. Patient denies change in location and renu cteristic of her pain complaints at this time. Plan of care discussed with Dr. Odalys Brumfield. Pain Assessment Pain Assessment Full Body Front + Back: 1. Right knee region Pain scale - at its best (0-10): 5 Pain scale - at its worst (0-10): 7 Physical Exam Physical Exam: General: Patient sleeping upon entering the room in no acute distress. Patient was arousable. Speech and thought process appropriate. Mood and affect appropriate. Cognition intact. Patient was able to push herself up from a lying to sitting position with her legs without obvious discomfort with witnessed forcible flexion and extension of the right knee. Lower extremities: Patient continues with diffuse tenderness to direct palpation over the right knee region which is nonfocal with slightly hyperalgesic response. Less obvious discomfort with range of motion on today's exam. Left knee with minimal tenderness to direct outpatient. Strength testing 5/5 with dorsiflexion, plantarflexion and EHL testing. Neurologic: Cranial nerves grossly intact. Ambulatory function not witnessed. Babinski downgoing bilaterally. Results (Pain Clinic) Diagnostic Review MRI Findings: [facility], [phone] Magnetic Resonance Report Patient: VIVEK NOWAK Date: 07/04/21#: [id number]: [address]Acct ID:[id number]: Date: 1990[facility] Zip: [place] [id number]: 31Location: 3WSex: FRoom/Bed: [address] Phy: Jose Nguyen, MDDiagnosis: MS FLARE UP, AMBULATORY DYSFUNCTIONPri Phy: Suzy Singh PA-CService Date: 07/10/21Fa Phy:Interpreting Phy: Mark Soriano MDAdmit Phy: Lance Junior M.D. Ordering Phy: Nicanor Casarez PA-C cc: ~ MRI OF THE LUMBAR SPINE COMBO CLINICAL HISTORY: Weakness. Loss of balance. Right leg pain. COMPARISON STUDY: Radiographs of the lumbar spine dated 02/18/2016. Abdominal CT dated 06/28/2021. TECHNIQUE: MRI of the lumbar spine is performed utilizing various T1 and T2- weighted sequences in the axial and sagittal planes. Contrast-enhanced sequences are acquired following the IV administration of 8 cc of Gadavist. FINDINGS: Lumbar spine: Vertebral body height and alignment are maintained throughout the lumbar spine. Normal marrow signal intensity is preserved throughout the visualized bony structures. The transverse and spinous processes are intact. There is no spondylolysis. No destructive bony lesion is seen. Intervertebral discs: Normal in height and signal intensity. Spinal cord: Imaged portions of the spinal cord are normal in morphology and signal intensity. The conus medullaris terminates at the level of L1. The nerve roots of the cauda equina are normal in morphology. No abnormal postcontrast enhancement is identified. There is no evidence of epidural fluid collection. L1-L2: Unremarkable. L2-L3: Minimal facet arthropathy is of no consequence. The central canal and neural foramina are patent. L3-L4: Minimal facet arthropathy is of no consequence. The central canal and neural foramina are patent. L4-L5: There is minimal posterior disc bulge. There is narrowing of the central canal at this level which is largely developmental. The minimum AP diameter measures 6 mm. There is mild bilateral subarticular stenosis. In conjunction with facet arthropathy there is mild bilateral neural foraminal narrowing. L5-S1: There is minimal posterior disc bulge. There is no significant acquired compromise of the central canal. Mild narrowing of the central canal at this level is likely developmental. There is also mild epidural lipomatosis. The minimum AP diameter measures 5.5 mm. There is mild bilateral subarticular s tenosis. In conjunction with facet arthropathy there is minimal bilateral neural foraminal narrowing. Sacrum: The visualized sacrum is normal in morphology and signal intensity. Soft tissues: The paraspinous soft tissues are normal as visualized. The retroperitoneal structures are grossly unremarkable but incompletely evaluated. IMPRESSION: 1. There is no disc herniation, acquired compromise of the central canal, or significant neural foraminal narrowing seen throughout the lumbar spine. 2. No destructive bony process is identified. 3. The visualized spinal cord and cauda equina are normal in appearance with no abnormal postcontrast enhancement identified. Dictated: 07/10/2021 3:20 PM Transcribed: 07/10/2021 3:54 PM [place] [id number] TAMMY_Aaron Electronically signed by: Mark Soriano M.D. 07/10/2021 3:55 PM Dictated: 07/10/21 1520Transcribed: 07/10/21 1554
--- NOTE | 2021-07-11 08:39 | Pain Management Consultation ---
Date of Consultation July 10, 2021 Assessment & Plan (1) Right knee pain: (2) Pain of right lower extremity: (3) Multiple sclerosis: (4) Substance abuse: (5) Major depression: 1. Will titrate gabapentin 800 mg 3 times daily 2. Will discontinue OxyIR and initiate hydrocodone 7.5/325 mg every 6 hours as needed for breakthrough pain 3. Patient was encouraged to limit utilization of IV morphine 4. Will recommend lumbar MRI with and without contrast and attempt to further define etiology of presenting lower extremity pain complaints 5. Consider Medrol Dosepak if no contraindication-further discuss with hospitalist team 6. Patient is a poor candidate for interventional treatment. History of Present Illness Reason for Consultation: Lower extremity pain Requesting Physician: Ashley Chatterjee PA-C Attending Physician: Jose Nguyen MD History of Present Illness Mrs. Nowak is a 30-year-old obese white female who was admitted on transfer from [facility] with bilateral lower extremity weakness and complaints of altered sensation from inframammary region distally to the feet. The patient has undergone extensive evaluation upon his admission with imaging and lumbar puncture which was reportedly "a dry tap". She has prior concern over multiple sclerosis with further supportive findings upon this admission. Patient has history of chronic abdominal pain and history of chronic pancreatitis from heavy alcohol utilization in her past with reported most recent alcohol consumption approximately 3 weeks ago. She has had ongoing complaints of pain predominately involving the right lower extremity in the knee area, but extending into the thigh and lower extremity to the ankle region in a nondermatomal pattern. Imaging of the knee has failed to reveal obvious etiology of her presenting complaints. She does have chronic complaints of axial low back pain but denies a true radicular pattern to her pain complaint. She reports similar pain on the left lower extremity around the knee region but is less frequent and severe. She reports the knee pain is aching and burning in characteristic. She denies any notable swelling or redness or warmth. Patient finds minimal benefit from use of oxycodone and IV morphine. She denies side effects these medications. She reported prior utilization of gabapentin which she reportedly ran out of greater than 1 month prior to this admission. Gabapentin has been resumed upon this admission at 600 mg 3 times daily. She reports prior dosing was 800 mg 3 times daily. Patient denies any notable benefit from baclofen which initiated yesterday. She did feel that IV Solu-Medrol was providing benefit with diminished frequency and severity of symptoms which was discontinued. She feels that her symptoms have somewhat increased with discontinuation of the Solu- Medrol. Patient has no further culture complaints. Plan of care discussed with Dr. Odalys Brumfield. Pain Assessment Full Body Front + Back: 1. Right knee 2. Right lower extremity-nondermatomal 3. Chronic lumbosacral complaints 4. Midepigastric abdominal pain Pain scale - at its best (0-10): 6 Pain scale - at its worst (0-10): 8 Allergies Allergy/AdvReac Type Severity Reaction Status Date / Time adhesive tape Allergy Verified 04/26/19 21:25 aspirin Allergy Verified 04/26/19 21:25 NSAIDS (Non-Steroidal AdvReac Unknown RASH Unverified 03/16/19 17:20 Anti-Inflamma ibuprofen AdvReac Dizziness Verified 04/26/19 21:25 Home Medications Medication Instructions Recorded Confirmed Type albuterol sulfate 90 mcg/actuation 2 puff INHALATION UD PRN 03/16/19 06/20/19 History aerosol inhaler (Ventolin HFA) lisinopril 5 mg tablet 5 mg PO DAILY 03/16/19 06/20/19 History acetaminophen 500 mg tablet 1,500 mg PO BID tab 06/20/19 06/20/19 History trazodone 50 mg tablet See Rx Instructions .ROUTE 10/20/19 Rx .COMPLEX #30 tablet gabapentin 600 mg tablet See Rx Instructions .ROUTE 04/13/20 Rx .COMPLEX #90 tablet Pain History Pain Intensity Pain scale - at its best (0-10): 6 Pain scale - at its worst (0-10): 8 Patient History Medical History (Updated 07/11/21 @ 08:37 by Nicanor Casarez PA-C) Acute torticollis Bipolar disorder Classic migraine with aura Numbness Pain of right lower extremity Pseudotumor cerebri Trichomoniasis UTI (urinary tract infection) Surgical History S/P appendectomy S/P section S/P knee surgery Family History Father Kidney stone Hypertension Dyslipidemia Unknown Sleep apnea Diabetes Kim's palsy Hypertension Cancer Grandmother Myocardial infarction Lymphoma Grandfather Malignant neoplasm of colon Mother Multiple sclerosis Social History Smoking Status: Current every day smoker Tobacco Type: Cigarettes Age Started Using Tobacco: 10; packs per day: 1.5; Hx Alcohol Use: Yes Alcohol type: hard liquor Alcohol type Comment: rum Alcohol Intake Frequency Comment: was 1/5 per day until about 2 months ago now is "occasional" Preferred Language: Yoruba Communication Ability: Effective Beliefs That Will Affect Care: None marital status: single Current Living Situation: Parent Current Living Situation Comment: Lives with 2 children 1 & 7, pts father is currently living with them to current occupational status: unemployed Feels Safe at Home: Yes Assistive Devices: Brace/Splint/Immobilizer, Glasses and Walker Physical Exam Physical Exam: General: Patient sleeping upon entering the room in no acute distress. Patient was arousable. Speech and thought process appropriate. Mood and affect appropriate. Cognition intact. Head: Normocephalic and atraumatic. ENT: No evidence of nasal or oral mucosal lesions. Mucous membranes are moist. Eyes: Pupils equal round reactive to light. Chest: Patient is tender to palpation of the costosternal junction. Patient is tender with AP compression of the anterior chest wall increased along the costal margin. Patient is nontender with lateral compression. Abdomen: Soft and nondistended. No organomegaly. Bowel sounds active. Patient has generalized tenderness to palpation in the midepigastric and bilateral upper quadrants without rebound or guarding. No organomegaly. Patient indicates altered sensation with complaints of dysesthesia in nondermatomal pattern involving the abdomen and lower extremities. Back/spine: Generalized tenderness over the lumbosacral region which is nonfocal to the midline, facet joints or SI joints. Limited range of motion all planes. Lower extremities: SLR increased pain in the right lower extremity in a nondermatomal pattern. SLR is negative on the left. Patient is diffusely tender over the right knee region which is nonfocal to the medial or lateral joint line. Hyperalgesic response was appreciated. Patient indicates tenderness with any range of motion activity. No erythema, warmth or edema appreciated. Left knee with minimal tenderness to direct outpatient. Sensation is diminished to sharp distally. She has diminished sensation to light touch of the toes distally. Neurologic: Cranial nerves grossly intact. Ambulatory function not witnessed. Babinski downgoing bilaterally. Results (Pain Clinic) Diagnostic Review MRI Findings: [facility], [id number] Magnetic Resonance Report Patient: VIVEK NOWAK Date: 07/04/21#: [id number]: [address]ct ID:[id number]: Date: 1990[facility] Zip: [place] [id number]: 31Location: 3WSex: FRoom/Bed: [id number] Phy: Nilay Biggs MDDiagnosis: MS FLARE UP, AMBULATORY DYSFUNCTIONPri Phy: PCP,NOService Date: 07/05/21Fam Phy:Interpreting Phy: Jessica Dash DOAdmit Phy: Lance Junior M.D. Ordering Phy: Nilay Biggs MD cc: ~ MRI OF THE BRAIN WITHOUT AND WITH IV CONTRAST CLINICAL HISTORY: paraperesis ? MS COMPARISON STUDY: No previous studies for comparison. TECHNIQUE: MRI of the brain was performed from the vertex to the skull base utilizing various T1 and T2 weighted sequences. Following the IV administration of mL of Gadavist contrast, additional enhanced images were obtained. FINDINGS: Sagittal T1, axial diffusion, proton density and T2 weighted axial, coronal FLAIR, and pre and post axial T1-weighted images were acquired. These were supplemented with post gadolinium coronal T1 weighted images. No intra or extra-axial mass lesions are visualized. Axial diffusion-weighted images reveal no evidence of acute or subacute infarction. There is no evidence of ventricular dilatation. Proton density T2-weighted and FLAIR images reveal slightly increased T2 FLAIR signal within downs of the lateral ventricles without significant involvement of the periventricular/subcortical white matter or corpus callosum. High T2 FLAIR signal within central aspect of the dimitri also shows decrease signal on T1 sequence and no evidence of enhancement after intravenous contrast admini stration. Similar area of increased T2 FLAIR signal is seen within cervical cord at the C4-C5 level () There are no abnormal flow voids. Fluid signal is seen within right frontal sinus. IMPRESSION: 1. No acute intracranial hemorrhage, no midline shift or space occupying lesions. 2. Few areas of high T2 FLAIR signal within dimitri and cervical cord, nonspecific, shows no evidence of enhancement after intravenous contrast administration most likely representing demyelinating process such as multiple sclerosis, however other etiology is also possible. Follow-up evaluation is per clinical protocol. 3. No evidence of restricted diffusion to suggest acute ischemia/infarct. 4. Fluid signal within right frontal sinus, might represent sinusitis. Please correlate with clinical presentation. ACT 112: Positive. There are findings on this exam that require communication between the performing entity and the patient following Patient Test Result Information Act ([place] Act 112) guidelines. The above report was generated using voice recognition software. It may contain grammatical, syntax or spelling errors. Electronically signed by: Jessica Dash DO 07/06/2021 10:47 AM Dictated: 07/06/21 1014Transcribed: 07/06/21 1014 [facility], [id number] Magnetic Resonance Report Patient: VIVEK NOWAK Date: 07/04/21MR#: [id number]: [address]Acct ID:[id number]: Date: 1990[facility] Zip: [place] [id number]: 31Location: 3WSex: FRoom/Bed: [id number] Phy: Nilay Biggs MDDiagnosis: MS FLARE UP, AMBULATORY DYSFUNCTIONPri Phy: PCP,NOService Date: 07/05/21Fam Phy:Interpreting Phy: Jessica Dash DOAdmit Phy: Lance Junior M.D. Ordering Phy: Nilay Biggs MD cc: ~ MR cervical spine wo/w con CLINICAL HISTORY: paraperesis ? MS TECHNIQUE: Sagittal and axial T1, T2 and STIR images were obtained. COMPARISON STUDY: No previous studies for comparison. There are no suspicious areas of marrow replacement. There is small focal area of increased T2 signal within posterior aspect of the cord seen at C4-C5 level shows no evidence of abnormal enhancement (14/7). Overall evaluation is slightly limited due to motion artifact. C2-3: There is no evidence of disc bulge or focal herniation. There is no spinal or foraminal stenosis. C3-4: Intervertebral disc space is preserved. Central protrusion of the disc is seen causing distortion of the thecal sac. Bilateral neuroforamina are patent. C4-5: Intervertebral disc space is preserved. Central protrusion of the disc is seen causing mild distortion of the thecal sac without significant stenosis of the central canal. Bilateral neuroforamina are patent. C5-6 :Intervertebral disc space is slightly narrowed. Posterior osteophytes are seen. There is central protrusion of the disc causing distortion of the thecal sac and mild stenosis of the central canal. Minimal narrowing of bilateral neuroforamina. C6-7: Central canal and right neuroforamina is patent. Mild stenosis of the left neuroforamina. C7-T1: There is no evidence of disc bulge or focal herniation. There is no evidence of spinal stenosis. Mild stenosis of bilateral neuroforamina are seen at this level. IMPRESSION: 1. Focal area of increase T2 signal within the cord could represent demyelinating lesion versus other etiology and shows no evidence of enhancement after intravenous contrast administration. 2. Multilevel degenerative changes as detailed above. ACT 112: Negative or not required by law. The above report was generated using voice recognition software. It may contain grammatical, syntax or spelling errors. Electronically signed by: Jessica Dash DO 07/06/2021 10:14 AM Dictated: 07/06/21 0956Transcribed: 07/06/21 0956 [facility], [id number] Magnetic Resonance Report Patient: VIVEK NOWAK Date: 07/04/21#: [id number]: [address]Acct ID:[id number]: Date: 1990[facility] Zip: [place] [id number]: 31Location: 3WSex: FRoom/Bed: [id number] Phy: Nilay Biggs MDDiagnosis: MS FLARE UP, AMBULATORY DYSFUNCTIONPri Phy: PCP,NOService Date: 07/05/21Fam Phy:Interpreting Phy: Josue HughesAdmit Phy: Lance Junior M.D. Ordering Phy: Nilay Biggs MD cc: ~ MR thoracic spine wo/w con HISTORY: 30 years-old Female paraperesis ? MS, upper extremity paresthesias with possible MS. COMPARISON: MRI brain and cervical spine studies of same day, MRI thoracic spine 07/02/2021 from outside institution. TECHNIQUE: Multiplanar and multisequence MRI of the thoracic spine was obtained both with and without the use of 8.0 mL Gadavist. FINDINGS: The refrigeration service inspector localizer images demonstrate no gross extraspinal abnormality. The liver appears to be prominent in size. Signal within the thoracic spinal cord appears normal. Conus medullaris terminates at T12-L1. Study is motion degraded. No acute fracture, subluxation, endplate erosion, bone marrow or soft tissue edema. There is no abnormal enhancement. There is mild multilevel discogenic degeneration as described below. Minimal multilevel spondylitic spurring and facet arthrosis. T5-T6: Central disc protrusion measures 6 mm transversely. Mild central canal stenosis, AP dimension of the thecal sac measuring 8 mm. The bilateral neural foramen are patent. T6-T7: 8 x 4 mm left paracentral/left lateral recess disc protrusion on image 13 series 31. Mild central canal with moderate left lateral recess narrowing. AP dimension of the thecal sac measures 6 mm. The neural foramen are patent. T7-T8: 1.2 x 0.4 cm right lateral recess/foraminal disc protrusion causes mild to moderate narrowing of the right lateral recess along with mild to moderate right neural foraminal narrowing. The central canal and left neural foramen are patent. T8-T9: Right lateral recess/right foraminal annular fissure with disc protrusion measuring approximately 11 mm transversely. Mild right lateral recess narrowing with mild right foraminal stenosis. The central canal and left neural foramen are patent. T9-T10: Spondylitic spurring with small posterior annular disc bulge. The central canal and right neural foramen are patent. Mild left neural foraminal narrowing. T10-T11: Spondylitic spurring with small posterior annular disc bulge results in mild bilateral neural foraminal narrowing. The central canal is patent. No additional significant central canal or neural foraminal narrowing. IMPRESSION: 1. Normal signal of the thoracic spinal cord. No abnormal enhancement. 2. Multilevel discogenic degeneration as detailed above with mild central canal stenosis at T5-T6 and T6-T7. 3. Multilevel neural foraminal narrowing, moderate on the right at T7-T8. ACT 112: Negative or not required by law. The above report was generated using voice recognition software. It may contain grammatical, syntax or spelling errors. Dictated: 07/06/2021 9:00 AM Transcribed: 07/06/2021 10:23 AM Luisa [id number] [place] Electronically signed by: Josue Hughes M.D. 07/06/2021 11:11 AM [facility], [id number] Magnetic Resonance Report Patient: VIVEK NOWAK Date: 07/04/21MR#: [id number]: [address]Acct ID:[id number]: Date: 1990[facility] Zip: [place] [address]Dqj: 31Location: 3WSex: FRoom/Bed: [id number] Phy: Nilay Biggs MDDiagnosis: MS FLARE UP, AMBULATORY DYSFUNCTIONPri Phy: PCP,NOService Date: 07/08/21Fam Phy:Interpreting Phy: Mark Soriano MDAdmit Phy: Lance Junior M.D. Ordering Phy: Nilay Biggs MD cc: ~ MRI OF THE RIGHT KNEE CLINICAL HISTORY: Right knee pain. COMPARISON STUDY: Radiographs of the right knee dated 07/01/2021. TECHNIQUE: MRI of the right knee was performed utilizing proton density, T1, and T2-weighted sequences in the axial, sagittal, coronal planes. IV contrast was not administered for this examination. FINDINGS: Menisci: The medial and lateral menisci are intact. Ligaments: The anterior and posterior cruciate ligaments are intact. The medial and lateral collateral ligaments are within normal limits. Extensor mechanism: The extensor mechanism is intact. Hoffa's fat pad is normal in appearance. Articular cartilage and bone: There is mild chondromalacia patella with foci of greater than 50% fissuring of the articular cartilage along the medial patellar facet. No reactive marrow edema is identified. There is also thinning of the articular cartilage along the medial femoral trochlea. There is only mild thinning of the articular cartilage along the weightbearing surfaces of the medial and lateral compartments. No fracture is identified. A calcified fabella is incidentally noted. Joint effusion: None Soft tissues: There is trace popliteal cyst. Venous varicosities are noted posterior to the knee. There is generalized atrophy of the regional musculature. IMPRESSION: 1. There is no evidence of meniscal or ligamentous injury of the right knee 2. Mild chondromalacia patella. 3. Trace joint fluid and trace popliteal cyst. 4. Venous varicosities are noted posterior to the knee. ACT 112: Negative or not required by law. Electronically signed by: Mark Soriano M.D. 07/08/2021 6:06 PM Dictated: 07/08/21 1153Transcribed: 07/08/21 1159
[2021-07-11] MEDS: NICOTINE 21 MG/24 HR TDSY TD SCH (08:40)
[2021-07-11] MEDS: ESCITALOPRAM OXALATE 10 MG TAB PO SCH (08:40)
[2021-07-11] MEDS: BACLOFEN 10 MG TAB PO SCH ×2 (08:40→20:04)
[2021-07-11] MEDS: PANTOprazole 40 MG TAB PO SCH (08:40)
[2021-07-11] MEDS: TOPIRAMATE 25 MG TAB PO SCH ×2 (08:40→20:05)
[2021-07-11] MEDS: FOLIC ACID 1 MG TAB PO SCH (08:41)
[2021-07-11] MEDS: ENOXAPARIN INJ 40 MG/0.4 ML SYR SQ SCH (08:41)
[2021-07-11] MEDS: GABAPENTIN 800 MG TAB PO SCH ×3 (08:41→20:04)
[2021-07-11] MEDS: THIAMINE HCL 200 MG in SODIUM CHLORIDE 0.9% 50 ML IV SCH (08:41)
[2021-07-11] MEDS: DICLOFENAC SOD 1% GEL 100 GM TUBE EXT SCH ×3 (08:42→20:05)
[2021-07-11] MEDS: POLYETHYLENE (MIRALAX) 17 GM PACK PO SCH (08:42)
--- NOTE | 2021-07-11 08:54 | Hospitalist Progress Note ---
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 LP unremarkable at that time. MRIs in spring without lesions however MRI done at [facility] of cervical spine showed new pontine lesion not present in February. Other cervical/thoracic spine MRIs reported unremarkable at that time. On July 05, MRI with central pontine lesion plus other scattered lesions (felt old in nature). Cord lesion in the cervical spine at C4-5 area. --> Interestingly, she has disc disease particularly in the thoracic spine at T5-6 and C6-7 without cord impingement and no lesions in the thoracic cord. Overall, her lesions in the brain and cervical spine are consistent with MS. LP attempted by radiology 07/05 "dry tap" at different levels even using fluoroscopy, likely 2nd to n/v/dehydration Numbness/tingling with sensory level consistent up to T4 diffusely b/l (?2nd to discs seen at T5-T6, T6-7), although new pontine lesion or cervical spine lesion could cause sensory level but not the cervical spine due to age Per Neurology, suspected patient with MS and has had new symptoms of flare-up recently Given Solu-medrol IV x 3 days (completed 07/08) with some neurologic improvement, but still with significant weakness/pain. No more IV steroids, but medrol dose pack per pain management Scheduled baclofen 10mg BID - prior prn Also on topiramate 25mg BID for headaches (none reported today). Consider adding requip for RLS at rehab after week per Dr Sweeney Also sent for Aquaporin 4 antibody and myelin oligodendrocyte glycoprotein antibody to help exclude NMP spectrum disorders Would reattempt LP aas outpatient for standard MS panel Pain management consulted --> MRI lumbar spine -- no acute finding to explain symptoms --> Increased gabapentin to 800mg TID today --> Switched oxycodone to hydromorphone --> Decreased morphine 1mg IV prn (attempting to limit use) Orthopedics consulted knee pain-- lidocaine patch trial. If persistent, consideration for injection as outpatient pes bursa PT/OT with recs for rehab -- [facility] when medically stable. Hopefully in next day or so, but attempting to wean off IV pain control with difficulty Continue to monitor (2) Substance abuse: Plan: Psychiatry following; recommend alcohol cessation. No s/sx withdrawal currently On thiamine, folic acid replacement. B12 over normal limits Psych consults as above -- ativan prn (has been getting fairly regularly and will need to wean slowly, could also be contributing to weakness with frequent opiates as above). Started on lexapro 10mg -- titrate as outpatient as tolerated B1, B6 levels pending as well Will ask to see again later today or in AM (3) Major depression: Plan: Lexapro initiated; psychiatry input greatly appreciated They also ordered 1mg ativan prn -- had been getting fairly regularly --> decreased to 0.5mg dosing in attempts to wean off and no increased anxiety reported (4) History of COVID-19: Plan: Reported + at [facility] in past --> repeat testing NEGATIVE (5) Abnormal LFTs: Plan: Pattern consistent with alcohol induced stable. 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 Unable to tolerate NSAIDs. Baclofen as above, oxycodone for breakthrough switched to hydromorphone by pain management Ortho consulted -- lidocaine patch. injection outpatient if persistent for pes bursa (7) Bacterial vaginosis: Plan: Urine culture Gardnerella; appears probable bacterial vaginosismetronidazole 7 days (on day 4) Could also be contributing to discomforts/nausea as well going to rehab at d/, otherwise high concerns for drinking while on this medication Plan: Lovenox for DVT prophylaxis continued titration of pain regimen rehab at [facility] at d/c Admission and Anticipated Discharge Date Admission Date: July 04, 2021 Subjective Eval this morning. Sleeping in bed, but arousable. Asked if able to get pain medication once awoken. Discussed trying increased gabapentin and limiting IV morphine as not appropriate treatment longterm. Notes no improvement in symptoms with medrol dose pack and saw pain management this morning but not yet by orthopedic team who may consider injection later t ney. Eating/drinking and moving bowels per patient. Discussed working with therapy and moving around a little more however patient wanting to sleep but also when next dose of medications due. Review of Systems Review of Systems: All systems reviewed & are unremarkable except as noted in HPI & below Physical Exam Physical Exam: Constitutional and general: WN/WD, sleeping in bed, awakes to name and prompting but falls asleep quickly. just received pain medication. no acute distress Head and face: Mild puffiness of the face, atraumatic Eyes: No scleral icterus, extraocular movements normal Neck: Supple, no JVD appreciated Musculoskeletal: No acute joint swelling, no bony abnormalities however diffusely tender to palpation medial aspect of knee to pes bursa. no effusion/edema noted, not warm. pulses palpable Skin/dermatologic/integument: No rash, no purpura Hematologic and lymphatic: pallor none, no petechia Gastrointestinal/abdomen: soft, epigastric tenderness, + bowel sounds, no guarding or rigidity Neurologic: stable lower extremity weakness and sensationnote level around the nipple area. decreased sensation to light touch, but does feel pressure. --> weakness R leg> L leg, decreased plantar/dorsiflexion R>L, pulses palpable bilaterally Cardiovascular: Heart rhythm regular, no rub, no murmur, no gallop Respiratory: Chest movements equal, no use of accessory muscles, no adventitious sounds Extremities: No edema, no cyanosis Psychiatry-AOx3, flat affect Results & Data Results & Data ([facility]) Vital Signs (Past 12 Hours) Vital Signs Temp Pulse Pulse Resp BP Pulse Ox 07/11/21 07:58 37.7 C H 61 16 140/78 95 07/10/21 23:05 37.2 C 80 16 115/73 96 Laboratory Results 07/11/21 07/11/21 07/11/21 Range/Units 06:30 06:30 06:30 WBC 7.69 (4.8-10.8) K/uL RBC 3.10 L (4.2-5.4) M/uL Hgb 11.6 L (12.0-16.0) g/dL Hct 35.7 L (37-47) % MCV 115.2 H (80-100) fL MCH 37.4 H (25-34) pg MCHC 32.5 (32-36) g/dL RDW Std Deviation 64.0 H (36.4-46.3) fL RDW Coeff of Parvez 15.3 H (11.5-14.5) % Plt Count 541 H (130-400) K/uL MPV 10.2 (7.4-10.4) fL Immature Gran % (Auto) 0.9 % Neut % (Auto) 70.1 % Lymph % (Auto) 23.4 % [place] % (Auto) 5.1 % Eos % (Auto) 0.4 % Baso % (Auto) 0.1 % Neut # (Auto) 5.39 (1.4-6.5) K/uL Lymph # (Auto) 1.80 (1.2-3.4) K/uL [place] # (Auto) 0.39 (0.11-0.59) K/uL Eos # (Auto) 0.03 (0-0.5) K/uL Baso # (Auto) 0.01 (0-0.2) K/uL Immature Gran # (Auto) 0.07 H (0.00-0.02) K/uL Macrocytosis Present Sodium 140 (136-145) mmol/L Potassium 4.2 D (3.5-5.1) mmol/L Chloride 105 (98-107) mmol/L Carbon Dioxide 30 (21-32) mmol/L Anion Gap 5.0 (3-11) BUN 14 (7-18) mg/dl Creatinine 0.43 L (0.6-1.2) mg/dl Est Cr Clr Drug Dosing 188.8 ml/min Est GFR ( Amer) > 150.0 ml/min Est GFR (Non-Af Amer) 135.5 ml/min BUN/Creatinine Ratio 32.4 H (10-20) Glucose 112 H (70-99) mg/dl Calcium 9.3 (8.5-10.1) mg/dl Magnesium 2.1 (1.8-2.4) mg/dl Miscellaneous Test Pending Miscellaneous Test 2 Pending PG Care Time/CCT Total # of Minutes Spent Total Time Spent with Patient: Total time spent is greater than 50% in coordination of care (as documented) at patient's floor/unit and/or counseling patient: Coding Level of Care Code 19969 Subseq Hosp Care Lvl 3 Diagnoses Paraparesis G82.20 Substance abuse F19.10 Major depression F32.9 History of COVID-19 Z86.16 Abnormal LFTs R94.5 Right knee pain M25.561 Bacterial vaginosis N76.0; B96.89
[2021-07-11] MEDS: metroNIDAZOLE 500 MG TAB PO SCH ×2 (09:45→20:05)
--- NOTE | 2021-07-11 14:40 | Orthopedic Progress Note ---
Date of Service July 11, 2021 Assessment & Plan (1) Right knee pain: Plan: MRI reviewed with Dr. Garcia. No meniscal pathology noted, trace effusion with patella chondromalacia. Pain seems to be mostly patellofemoral in origin does have some tenderness in region of her pes bursa as well. Stable to valgus and varus stress. We can try a Lidoderm patch over the pes bursa region. We will also order an immobilizer for her right knee for ambulation purposes. She can continue to be weightbearing as tolerated .Thoracic MRI showing multilevel neural foraminal narrowing, moderate on the right at T7-T8. Lumbar MRI pending. We will continue to follow. Pain medications as per pain management team. F/u as outpatient if pain persisting and could consider steroid injection as an outpatient. Admission and Anticipated Discharge Date Admission Date: July 04, 2021 Subjective Follow up on right knee pain. States no real change in her pain, not worse. Just finished PT. Review of Systems Review of Systems: All systems reviewed & are unremarkable except as noted in Subjective Physical Exam Physical Exam: Right knee-Tenderness diffusely medial aspect of knee from superior aspect of patellofemoral joint to her pes bursa region. ROM is normal. Collateral ligaments stable. No appreciable knee effusion on exam. No erythema. Constitutional: well developed and well nourished; no acute distress Results & Data ([facility]) Vital Signs (Past 12 Hours) Vital Signs Temp Pulse Resp BP Pulse Ox 07/11/21 07:58 37.7 C H 61 16 140/78 95
[2021-07-11] MEDS: LIDOCAINE 5% 1 PATCH TD SCH (17:36)
[2021-07-11] MEDS: LORazepam 0.5 MG TAB PO PRN (20:03)
[2021-07-11] MEDS ORDERED: methylPREDNISolone 4 MG TAB PO SCH (21:00)
[2021-07-12] MEDS: MoRPHine SULFATE 2 MG/ML CARP IV PRN ×6 (00:55→22:28)
[2021-07-12] MEDS: ONDANSETRON INJ 2 MG/ML 2 ML VIAL IV PRN ×2 (00:59→08:52)
[2021-07-12] MEDS: HYDROCODONE/ACETAMINOPHEN 7.5/325MG TAB PO PRN ×4 (02:03→23:31)
[2021-07-12] MEDS: methylPREDNISolone 4 MG TAB PO SCH ×4 (06:15→21:01)
[2021-07-12 07:40] LABS: Basophils # (auto) 0.02 K/uL (0-0.2); Basophils % (auto) 0.2 %; Eosinophils % (auto) 1.1 %; Hematocrit (blood only) 38.3 % (37-47); Hemoglobin 12.4 g/dL (12.0-16.0); Immature Granulocytes # (auto) 0.16 K/uL (0.00-0.02); Immature Granulocytes % (auto) 1.7 %; Lymphocytes # (auto) 2.73 K/uL (1.2-3.4); Lymphocytes % (auto) 29.3 %; Mean Corpuscular Hemoglobin 37.9 pg (25-34); Mean Corpuscular Hgb Conc 32.4 g/dL (32-36); Mean Corpuscular Volume 117.1 fL (80-100); Mean Platelet Volume 10.5 fL (7.4-10.4); Monocytes # (auto) 0.65 K/uL (0.11-0.59); Neutrophils # (auto) 5.66 K/uL (1.4-6.5); Neutrophils % (auto) 60.7 %; Platelet Count 586 K/uL (130-400); RDW Coefficient of Variation 15.4 % (11.5-14.5); Red Blood Count 3.27 M/uL (4.2-5.4); White Blood Count 9.32 K/uL (4.8-10.8)
[2021-07-12 08:01] LABS: Macrocytosis Present; Stomatocytes 1+
[2021-07-12] MEDS: THIAMINE HCL 200 MG in SODIUM CHLORIDE 0.9% 50 ML IV SCH (08:02)
[2021-07-12] MEDS: LIDOCAINE 5% 1 PATCH TD SCH (08:03)
[2021-07-12] MEDS: ENOXAPARIN INJ 40 MG/0.4 ML SYR SQ SCH (08:03)
[2021-07-12] MEDS: metroNIDAZOLE 500 MG TAB PO SCH ×2 (08:04→21:02)
[2021-07-12] MEDS: DICLOFENAC SOD 1% GEL 100 GM TUBE EXT SCH ×3 (08:04→21:00)
[2021-07-12] MEDS: BACLOFEN 10 MG TAB PO SCH ×2 (08:04→20:59)
[2021-07-12] MEDS: NICOTINE 21 MG/24 HR TDSY TD SCH (08:04)
[2021-07-12] MEDS: ESCITALOPRAM OXALATE 10 MG TAB PO SCH (08:04)
[2021-07-12] MEDS: FOLIC ACID 1 MG TAB PO SCH (08:04)
[2021-07-12] MEDS: GABAPENTIN 800 MG TAB PO SCH ×3 (08:04→21:01)
[2021-07-12] MEDS: TOPIRAMATE 25 MG TAB PO SCH ×2 (08:04→21:01)
[2021-07-12] MEDS: PANTOprazole 40 MG TAB PO SCH (08:04)
[2021-07-12] MEDS: POLYETHYLENE (MIRALAX) 17 GM PACK PO SCH (08:05)
[2021-07-12 08:06] LABS: Alanine Aminotransferase 102 U/L (12-78); Albumin Globulin Ratio 0.7 (0.9-2); Aspartate Aminotransferase 86 U/L (15-37); BUN Creatinine Ratio 32.5 (10-20); Bilirubin,Total 0.6 mg/dl (0.2-1); Blood Urea Nitrogen 14 mg/dl (7-18); Calcium 9.3 mg/dl (8.5-10.1); Carbon Dioxide 31 mmol/L (21-32); Chloride 106 mmol/L (98-107); Creatinine Clr Calc Pharmacy 180.4 ml/min; Est GFR (African American) > 150.0 ml/min; Est GFR (Non-African American) 133.5 ml/min; Globulin 4.2 gm/dl (2.5-4.0); Glucose 102 mg/dl (70-99); Potassium 4.2 mmol/L (3.5-5.1); Sodium 140 mmol/L (136-145); Total Protein 7.2 gm/dl (6.4-8.2)
[2021-07-12 08:07] LABS: Alkaline Phosphatase 72 U/L (45-117)
--- NOTE | 2021-07-12 09:28 | Hospitalist Progress Note ---
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 LP unremarkable at that time. MRIs in spring without lesions however MRI done at [facility] of cervical spine showed new pontine lesion not present in February. Other cervical/thoracic spine MRIs reported unremarkable at that time. On July 05, MRI with central pontine lesion plus other scattered lesions (felt old in nature). Cord lesion in the cervical spine at C4-5 area. --> Interestingly, she has disc disease particularly in the thoracic spine at T5-6 and C6-7 without cord impingement and no lesions in the thoracic cord. Overall, her lesions in the brain and cervical spine are consistent with MS. LP attempted by radiology 07/05 "dry tap" at different levels even using fluoroscopy, likely 2nd to n/v/dehydration Numbness/tingling with sensory level consistent up to T4 diffusely b/l (?2nd to discs seen at T5-T6, T6-7), although new pontine lesion or cervical spine lesion could cause sensory level but not the cervical spine due to age Per Neurology, suspected patient with MS and has had new symptoms of flare-up recently Given Solu-medrol IV x 3 days (completed 07/08) with some neurologic improvement, but still with significant weakness/pain. No more IV steroids, but medrol dose pack per pain management Scheduled baclofen 10mg BID - prior prn Also on topiramate 25mg BID for headaches (none reported today). Consider adding requip for RLS at rehab after week per Dr Sweeney Also sent for Aquaporin 4 antibody and myelin oligodendrocyte glycoprotein antibody to help exclude NMP spectrum disorders Would reattempt LP as outpatient for standard MS panel Pain management consulted --> MRI lumbar spine -- no acute finding to explain symptoms --> Increased gabapentin to 800mg TID today --> Switched oxycodone to hydromorphone --> Decreased morphine 1mg IV prn (attempting to limit use) --> decreased to 0.5mg prn and hopefully decreased frequency and discontinue tomorrow Orthopedics consulted knee pain-- lidocaine patch trial -- reported not effective --> messaged to see if someone able to see about possible injection tomorrow PT/OT with recs for rehab -- [facility] when medically stable. Hopefully in next day or so, but attempting to wean off IV pain control with difficulty Continue to monitor (2) Substance abuse: Plan: Psychiatry following; recommend alcohol cessation. No s/sx withdrawal currently On thiamine, folic acid replacement. B12 over normal limits Psych consults as above -- ativan prn (has been getting fairly regularly and will need to wean slowly, could also be contributing to weakness with frequent opiates as above). Started on lexapro 10mg -- titrated to 20mg today by psych B1, B6 levels pending as well (3) Major depression: Plan: reported hx bipolar w easton, however psych feels more MDD Lexapro initiated; psychiatry input greatly appreciated They also ordered 1mg ativan prn -- had been getting fairly regularly --> decreased to 0.5mg dosing in attempts to wean off and no increased anxiety reported Lexapro started 10mg daily, increased to 20mg today by psych after asked them to see also discussed reported PTSD/difficulty sleeping and ok w starting prazosin HS but would avoid any mood stabilizer like lamictal at this time continue to monitor should have follow up care (4) History of COVID-19: Plan: Reported + at [facility] in past --> repeat testing NEGATIVE (5) Abnormal LFTs: Plan: Pattern consistent with alcohol induced AST 86/ALT 102 today -- adding CMV/hepatitis panel testing given prior CTAP with severe hepatic steatosis (6) Right knee pain: Plan: MRI without meniscal tear, 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 Unable to tolerate NSAIDs. Baclofen as above, oxycodone for breakthrough switched to hydromorphone by pain management Ortho consulted -- lidocaine patch --> . injection outpatient if persistent for pes bursa. asking to see again tomorrow to consider injection (7) Bacterial vaginosis: Plan: Urine culture Gardnerella; appears probable bacterial vaginosismetronidazole 7 days (on day 5) Could also be contributing to discomforts/nausea as well going to rehab at d/c, otherwise high concerns for drinking while on this medication Plan: Lovenox for DVT prophylaxis increased lexapro added prazosin HS overnight pulse ox study continued titration of pain regimen rehab at [facility] at d/c Admission and Anticipated Discharge Date Admission Date: July 04, 2021 Subjective patient evaluated this afternoon -- initially had received pain medications and requested to be eval later pain reported but not worse than usual denies any improvement with the lidocaine patch states her IV is hurting and is the 3rd IV site -- didn't taste the flush as usual and requesting to be changed. will have RN have IV team place new site (pulses palpable) prior to any further IV mediations eating/drinking and moving bowels without issues walking with walker anxiety about being in hospital and missing her kids thinks she saw psych earlier but not sure due to many people in her room she confirms hx of bipolar and notes last episode of easton about 2 months ago, lasting one week also with PTSD She had been on Lamictal in the past and agreeable to start, as discussed should probably use mood stabilizer given her bipolar to prevent easton. she also has poor sleep, snoring, daytime somnolence and difficulty falling and staying asleep. previously on trazodone but discussed prazosin. she is agreeable to try. will also check overnight pulse ox to see about possible underlying sleep apnea will discuss with psych -- wanting to hold off on lamictal at this time but agree to start prazosin. they increased lexapro to 20mg daily. Review of Systems Review of Systems: All systems reviewed & are unremarkable except as noted in HPI & below Physical Exam Physical Exam: Constitutional and general: WN/WD, awake and up in bed watching TV and playing [employer] on her phone. no acute distress Head and face: Mild puffiness of the face, atraumatic Eyes: No scleral icterus, extraocular movements normal Neck: Supple, no JVD appreciated Musculoskeletal: No acute joint swelling, no bony abnormalities however diffusely tender to palpation medial aspect of knee to pes bursa. no effusion/edema noted, not warm. pulses palpable Skin/dermatologic/integument: No rash, no purpura Hematologic and lymphatic: pallor none, no petechia Gastrointestinal/abdomen: soft, non-tender, + bowel sounds, no guarding or rigidity Neurologic: stable lower extremity weakness and sensationnote level around the nipple area. decreased sensation to light touch, but does feel pressure. (however witnessed putting socks on without difficulty per psych and then pretended to have difficulty) --> weakness R leg> L leg, decreased plantar/dorsiflexion R>L, pulses palpable bilaterally Cardiovascular: Heart rhythm regular, no rub, no murmur, no gallop Respiratory: Chest movements equal, no use of accessory muscles, no adventitious sounds Extremities: No edema, no cyanosis Psychiatry-AOx3, flat affect Results & Data Results & Data ([facility]) Vital Signs (Past 12 Hours) Vital Signs Temp Pulse Pulse Resp BP Pulse Ox 07/12/21 07:34 36.7 C 57 L 18 126/82 97 07/11/21 22:50 37.5 C 87 16 117/75 96 Laboratory Results 07/12/21 07/12/21 07/11/21 Range/Units 06:55 06:55 06:30 WBC 9.32 (4.8-10.8) K/uL RBC 3.27 L (4.2-5.4) M/uL Hgb 12.4 (12.0-16.0) g/dL Hct 38.3 (37-47) % MCV 117.1 H (80-100) fL MCH 37.9 H (25-34) pg MCHC 32.4 (32-36) g/dL RDW Std Deviation 65.0 H (36.4-46.3) fL RDW Coeff of Parvez 15.4 H (11.5-14.5) % Plt Count 586 H (130-400) K/uL MPV 10.5 H (7.4-10.4) fL Immature Gran % (Auto) 1.7 % Neut % (Auto) 60.7 % Lymph % (Auto) 29.3 % [place] % (Auto) 7.0 % Eos % (Auto) 1.1 % Baso % (Auto) 0.2 % Neut # (Auto) 5.66 (1.4-6.5) K/uL Lymph # (Auto) 2.73 (1.2-3.4) K/uL [place] # (Auto) 0.65 H (0.11-0.59) K/uL Eos # (Auto) 0.10 (0-0.5) K/uL Baso # (Auto) 0.02 (0-0.2) K/uL Immature Gran # (Auto) 0.16 H (0.00-0.02) K/uL Macrocytosis Present Stomatocytes 1+ Sodium 140 (136-145) mmol/L Potassium 4.2 (3.5-5.1) mmol/L Chloride 106 (98-107) mmol/L Carbon Dioxide 31 (21-32) mmol/L Anion Gap 3.0 (3-11) BUN 14 (7-18) mg/dl Creatinine 0.45 L (0.6-1.2) mg/dl Est Cr Clr Drug Dosing 180.4 ml/min Est GFR ( Amer) > 150.0 ml/min Est GFR (Non-Af Amer) 133.5 ml/min BUN/Creatinine Ratio 32.5 H (10-20) Glucose 102 H (70-99) mg/dl Calcium 9.3 (8.5-10.1) mg/dl Total Bilirubin 0.6 (0.2-1) mg/dl AST 86 H (15-37) U/L ALT 102 H (12-78) U/L Alkaline Phosphatase 72 (45-117) U/L Total Protein 7.2 (6.4-8.2) gm/dl Albumin 3.0 L (3.4-5.0) gm/dl Globulin 4.2 H (2.5-4.0) gm/dl Albumin/Globulin Ratio 0.7 L (0.9-2) Miscellaneous Test Ref Lab Test Result Pending 07/11/21 Range/Units 06:30 WBC (4.8-10.8) K/uL RBC (4.2-5.4) M/uL Hgb (12.0-16.0) g/dL Hct (37-47) % MCV (80-100) fL MCH (25-34) pg MCHC (32-36) g/dL RDW Std Deviation (36.4-46.3) fL RDW Coeff of Parvez (11.5-14.5) % Plt Count (130-400) K/uL MPV (7.4-10.4) fL Immature Gran % (Auto) % Neut % (Auto) % Lymph % (Auto) % [place] % (Auto) % Eos % (Auto) % Baso % (Auto) % Neut # (Auto) (1.4-6.5) K/uL Lymph # (Auto) (1.2-3.4) K/uL [place] # (Auto) (0.11-0.59) K/uL Eos # (Auto) (0-0.5) K/uL Baso # (Auto) (0-0.2) K/uL Immature Gran # (Auto) (0.00-0.02) K/uL Macrocytosis Stomatocytes Sodium (136-145) mmol/L Potassium (3.5-5.1) mmol/L Chloride (98-107) mmol/L Carbon Dioxide (21-32) mmol/L Anion Gap (3-11) BUN (7-18) mg/dl Creatinine (0.6-1.2) mg/dl Est Cr Clr Drug Dosing ml/min Est GFR ( Amer) ml/min Est GFR (Non-Af Amer) ml/min BUN/Creatinine Ratio (10-20) Glucose (70-99) mg/dl Calcium (8.5-10.1) mg/dl Total Bilirubin (0.2-1) mg/dl AST (15-37) U/L ALT (12-78) U/L Alkaline Phosphatase (45-117) U/L Total Protein (6.4-8.2) gm/dl Albumin (3.4-5.0) gm/dl Globulin (2.5-4.0) gm/dl Albumin/Globulin Ratio (0.9-2) Miscellaneous Test Cancelled Ref Lab Test Result PG Care Time/CCT Total # of Minutes Spent Total Time Spent with Patient: Total time spent is greater than 50% in coordination of care (as documented) at patient's floor/unit and/or counseling patient: Coding Level of Care Code 24956 Subseq Hosp Care Lvl 3 Diagnoses Paraparesis G82.20 Substance abuse F19.10 Major depression F32.9 History of COVID-19 Z86.16 Abnormal LFTs R94.5 Right knee pain M25.561 Bacterial vaginosis N76.0; B96.89
[2021-07-12] MEDS: LORazepam 0.5 MG TAB PO PRN ×2 (11:14→19:37)
--- NOTE | 2021-07-12 16:33 | Communication Note ---
Date of Service: July 12, 2021 Patient was visited by both liaison and by insurance underwriter, Jonn rivera "Rounded on pt. Pt stated that she is in a lot of pain in her right leg. Pt stated that she has no needs from us at this time. The pt did joke and say "if you could give me a happy pill to fix everything, that would be great." The pt stated that she feels that the Lexapro is helping her. She stated that she is just struggling because she misses her kids. She stated that she has not seen them since the of this month and it has been really difficult for her. The pt was told that if she would need any of our services to let her nurse know. The pt was pleasant and polite." Upon seeing the patient this afternoon, she does endorse the above. She stated that she is frustrated with the medical process taking so long, but she does feel that the Lexapro medication has been helpful to her and has been reducing her anxiety. She is agreeable to an increased dose and at this time is denying any side effects of the medication. Plan: Increase dose of Lexapro to 20 mg p.o. every morning starting tomorrow morning.
[2021-07-12 17:10] LABS: Hepatitis B Surf Ag Rflx Conf Neg (Neg)
[2021-07-12 17:39] LABS: Hepatitis C IgG 13Yrs+Old_Rflx Neg (Neg)
[2021-07-12] MEDS: PRAZOSIN HCL 1 MG CAP PO SCH (21:24)
[2021-07-13] MEDS: ONDANSETRON INJ 2 MG/ML 2 ML VIAL IV PRN ×2 (00:45→15:56)
[2021-07-13] MEDS: MoRPHine SULFATE 2 MG/ML CARP IV PRN ×4 (02:58→21:43)
[2021-07-13 07:51] VITALS: O2SAT 96
[2021-07-13 07:54] LABS: Hematocrit (blood only) 36.5 % (37-47); Hemoglobin 11.7 g/dL (12.0-16.0); Mean Corpuscular Hemoglobin 36.9 pg (25-34); Mean Corpuscular Hgb Conc 32.1 g/dL (32-36); Mean Corpuscular Volume 115.1 fL (80-100); Mean Platelet Volume 10.4 fL (7.4-10.4); Platelet Count 526 K/uL (130-400); RDW Coefficient of Variation 15.5 % (11.5-14.5); RDW Standard Deviation 64.5 fL (36.4-46.3); Red Blood Count 3.17 M/uL (4.2-5.4); White Blood Count 10.87 K/uL (4.8-10.8)
[2021-07-13 08:27] LABS: Alanine Aminotransferase 95 U/L (12-78); Albumin Level 2.8 gm/dl (3.4-5.0); Aspartate Aminotransferase 76 U/L (15-37); BUN Creatinine Ratio 36.7 (10-20); Blood Urea Nitrogen 18 mg/dl (7-18); Calcium 9.4 mg/dl (8.5-10.1); Carbon Dioxide 27 mmol/L (21-32); Chloride 108 mmol/L (98-107); Creatinine Clr Calc Pharmacy 169.2 ml/min; Est GFR (African American) > 150.0 ml/min; Est GFR (Non-African American) 130.7 ml/min; Glucose 96 mg/dl (70-99); Sodium 139 mmol/L (136-145)
[2021-07-13 08:29] LABS: Alkaline Phosphatase 68 U/L (45-117); Bilirubin Direct 0.3 mg/dl (0-0.2); Bilirubin,Total 0.6 mg/dl (0.2-1); Total Protein 6.7 gm/dl (6.4-8.2)
--- NOTE | 2021-07-13 08:38 | Hospitalist Progress Note ---
Date of Service July 13, 2021 Assessment & Plan Admission and Anticipated Discharge Date Admission Date: July 04, 2021 Results & Data Results & Data ([facility]) Vital Signs (Past 12 Hours) Vital Signs Temp Pulse Pulse Pulse Resp BP Pulse Ox 07/13/21 07:47 36.4 C L 68 18 140/92 96 07/13/21 06:11 60 105/69 07/12/21 22:21 36.8 C 90 18 92/62 L 96 07/12/21 22:20 81 Pulse Ox 07/13/21 07:47 07/13/21 06:11 07/12/21 22:21 07/12/21 22:20 97 Laboratory Results 07/13/21 07/13/21 07/13/21 Range/Units 07:20 07:20 07:20 WBC 10.87 H (4.8-10.8) K/uL RBC 3.17 L (4.2-5.4) M/uL Hgb 11.7 L (12.0-16.0) g/dL Hct 36.5 L (37-47) % MCV 115.1 H (80-100) fL MCH 36.9 H (25-34) pg MCHC 32.1 (32-36) g/dL RDW Std Deviation 64.5 H (36.4-46.3) fL RDW Coeff of Parvez 15.5 H (11.5-14.5) % Plt Count 526 H (130-400) K/uL MPV 10.4 (7.4-10.4) fL Sodium 139 (136-145) mmol/L Potassium 4.0 (3.5-5.1) mmol/L Chloride 108 H (98-107) mmol/L Carbon Dioxide 27 (21-32) mmol/L Anion Gap 5.0 (3-11) BUN 18 (7-18) mg/dl Creatinine 0.48 L (0.6-1.2) mg/dl Est Cr Clr Drug Dosing 169.2 ml/min Est GFR ( Amer) > 150.0 ml/min Est GFR (Non-Af Amer) 130.7 ml/min BUN/Creatinine Ratio 36.7 H (10-20) Glucose 96 (70-99) mg/dl Calcium 9.4 (8.5-10.1) mg/dl Total Bilirubin 0.6 (0.2-1) mg/dl Direct Bilirubin 0.3 H (0-0.2) mg/dl AST 76 H (15-37) U/L ALT 95 H (12-78) U/L Alkaline Phosphatase 68 (45-117) U/L Total Protein 6.7 (6.4-8.2) gm/dl Albumin 2.8 L (3.4-5.0) gm/dl 25-OH Vitamin D Total Pending CMV IgM Ab CMV IgG Ab/TORCH Hepatitis A IgM Ab Hep Bs Antigen (Neg) Hep B Core IgM Ab Hepatitis C Antibody (Neg) 07/12/21 07/12/21 Range/Units 09:49 09:49 WBC (4.8-10.8) K/uL RBC (4.2-5.4) M/uL Hgb (12.0-16.0) g/dL Hct (37-47) % MCV (80-100) fL MCH (25-34) pg MCHC (32-36) g/dL RDW Std Deviation (36.4-46.3) fL RDW Coeff of Parvez (11.5-14.5) % Plt Count (130-400) K/uL MPV (7.4-10.4) fL Sodium (136-145) mmol/L Potassium (3.5-5.1) mmol/L Chloride (98-107) mmol/L Carbon Dioxide (21-32) mmol/L Anion Gap (3-11) BUN (7-18) mg/dl Creatinine (0.6-1.2) mg/dl Est Cr Clr Drug Dosing ml/min Est GFR ( Amer) ml/min Est GFR (Non-Af Amer) ml/min BUN/Creatinine Ratio (10-20) Glucose (70-99) mg/dl Calcium (8.5-10.1) mg/dl Total Bilirubin (0.2-1) mg/dl Direct Bilirubin (0-0.2) mg/dl AST (15-37) U/L ALT (12-78) U/L Alkaline Phosphatase (45-117) U/L Total Protein (6.4-8.2) gm/dl Albumin (3.4-5.0) gm/dl 25-OH Vitamin D Total CMV IgM Ab Pending CMV IgG Ab/TORCH Pending Hepatitis A IgM Ab Pending Hep Bs Antigen Neg (Neg) Hep B Core IgM Ab Pending Hepatitis C Antibody Neg (Neg) PG Care Time/CCT Total # of Minutes Spent Total Time Spent with Patient: Total time spent is greater than 50% in coordination of care (as documented) at patient's floor/unit and/or counseling patient: Coding
[2021-07-13] MEDS ORDERED: ESCITALOPRAM OXALATE 20 MG TAB PO SCH (09:00)
[2021-07-13] MEDS: methylPREDNISolone 4 MG TAB PO SCH ×3 (09:28→20:08)
[2021-07-13] MEDS: BACLOFEN 10 MG TAB PO SCH ×2 (09:28→20:09)
[2021-07-13] MEDS: TOPIRAMATE 25 MG TAB PO SCH ×2 (09:28→20:09)
[2021-07-13] MEDS: PANTOprazole 40 MG TAB PO SCH (09:28)
[2021-07-13] MEDS: GABAPENTIN 800 MG TAB PO SCH ×3 (09:28→20:09)
[2021-07-13] MEDS: NICOTINE 21 MG/24 HR TDSY TD SCH (09:29)
[2021-07-13] MEDS: FOLIC ACID 1 MG TAB PO SCH (09:29)
[2021-07-13] MEDS: metroNIDAZOLE 500 MG TAB PO SCH ×2 (09:29→20:08)
[2021-07-13] MEDS: LIDOCAINE 5% 1 PATCH TD SCH (09:29)
[2021-07-13] MEDS: ENOXAPARIN INJ 40 MG/0.4 ML SYR SQ SCH (09:29)
[2021-07-13] MEDS: DICLOFENAC SOD 1% GEL 100 GM TUBE EXT SCH ×3 (09:29→20:08)
[2021-07-13] MEDS: POLYETHYLENE (MIRALAX) 17 GM PACK PO SCH (09:30)
[2021-07-13] MEDS: HYDROCODONE/ACETAMINOPHEN 7.5/325MG TAB PO PRN ×3 (09:31→23:20)
[2021-07-13] MEDS: THIAMINE HCL 200 MG in SODIUM CHLORIDE 0.9% 50 ML IV SCH (10:42)
[2021-07-13 11:52] LABS: CMV IgG Antibody <0.60 U/mL; CMV IgM Antibody <30.00 AU/mL; Hepatitis A Antibody IgM NON-REACTIVE (NON-REACTIVE); Hepatitis B Core Antibody IgM NON-REACTIVE (NON-REACTIVE)
--- NOTE | 2021-07-13 13:36 | Discharge Summary ---
Date of Service July 13, 2021 Admission HPI Per Admitting Provider Patient is a transfer from [facility] with bilateral lower extremity weakness. The neuropathy in her report starts approximately mcc between her bellybutton and her chest. She says she has sensation although it is altered. The patient has been worked up in 2014 at [facility] where she did have a spinal tap for consideration of multiple sclerosis which reportedly was unremarkable. The patient is a lifelong alcoholic though she has not had any drinks for some time and she has been in [facility] for 5 days prior to her transfer. She states that she in the past also suffer from chronic pancreatitis but is currently on no medications whatsoever. In [facility] it looks like some imaging studies were performed CT scan abdomen pelvis June 28 was with hepatomegaly and steatosis no inflammatory process is seen. Magnetic resonance imaging of the cervical spine with and without contrast July 02 show new area of abnormal signal in the dimitri without enhancement suspicious for demyelinating process in the setting of multiple sclerosis no abnormal cord signal in the cervical or thoracic spine spondylitic change in the cervical and thoracic spine unchanged. Reportedly the patient had teleneurology consult with Dr. Miranda. He recommended transfer for onsite neurological evaluation. He recommended MRI of the brain. This may be what we saw combined with the cervical thoracic spine with the dimitri lesion concern. Recommending replete folic acid empiric thiamine Admission Exam Per Admitting Provider The patient appeared well nourished and normally developed. Patient has a cushingoid appearance initially there is notes that dexamethasone has been on her medication list. Vital signs as documented. Head exam is normocephalic atraumatic Neck is without JVD, thyromegaly, or carotid bruits. Lungs are clear to auscultation, no focal loss of breath sounds Cardiac exam, Rhythm is regular.. No murmurs, rubs or gallops. Abdominal exam reveals normal bowel sounds, soft diffusely nondescript tenderness with no focal guarding or rebound Extremities are nonedematous and both pedal pulses are present Neurologic exam is alert and oriented, patient has brisk reflexes and some clonus to ankle reflex testing. Toes are equivocal upper extremities are not affected in the same way Lower extremities the patient can move her legs against gravity and slightly of them off the bed otherwise she has difficulty positioning and uses her arms to position her legs. She has no upper extremity symptoms or facial nerve deficits that could be seen Skin is without bruises or rashes Psychologically is without concerns for anxiety or depression Patient was openly vocal but asking for pain medication on presentation Principal Diagnosis Paraparesis Discharge Exam Constitutional and general: WN/WD, awake and up in bed watching TV and playing game on her phone. no acute distress Head and face: Cushingoid appearance to the face, atraumatic Eyes: No scleral icterus, extraocular movements normal Neck: Supple, no JVD appreciated Musculoskeletal: No acute joint swelling, no bony abnormalities however diffusely tender to palpation medial aspect of knee to pes bursa. no effusion/edema noted, not warm. pulses palpable Skin/dermatologic/integument: No rash, no purpura Hematologic and lymphatic: pallor none, no petechia Gastrointestinal/abdomen: soft, non-tender, + bowel sounds, no guarding or rigidity Neurologic: stable lower extremity weakness and sensationnoted by patient at level around the nipple area. decreased sensation to light touch, but does feel pressure. (however witnessed putting socks on without difficulty per psych and then stated to them to have been having difficulty) --> weakness R leg> L leg, decreased plantar/dorsiflexion R>L, pulses palpable bilaterally Cardiovascular: Heart rhythm regular, no rub, no murmur, no gallop Respiratory: Chest movements equal, no use of accessory muscles, no adventitious sounds Extremities: No edema, no cyanosis Psychiatry-AOx3, flat affect Discharge Data Allergies Allergy/AdvReac Type Severity Reaction Status Date / Time adhesive tape Allergy Verified 04/26/19 21:25 aspirin Allergy Verified 04/26/19 21:25 NSAIDS (Non-Steroidal AdvReac Unknown RASH Unverified 03/16/19 17:20 Anti-Inflamma ibuprofen AdvReac Dizziness Verified 04/26/19 21:25 Consultations 07/04/21 12:19 Consult Neurology Routine 07/05/21 13:36 Consult Psychiatry Routine 07/09/21 13:38 Consult Pain Management Routine 07/09/21 18:32 Consult Orthopedic Surgery Routine Procedures Performed Operation Date: 07/05/21 09:00 <No data on this case meets the specified criteria> Ordered Studies 07/05/21 09:00 FL lumbar puncture diagnostic Routine 07/05/21 11:46 MR brain MS wo/w con Urgent MR cervical spine wo/w con Urgent MR thoracic spine wo/w con Urgent 07/08/21 10:12 MR knee RT wo con Routine 07/10/21 08:32 MR lumbar spine wo/w con Routine Hospital Course (1) Paraparesis: Hx 2014 with no clinical evidence to suspect MS although with positive Lhermitte's sign. LP unremarkable at that time. MRIs in spring without lesions however MRI done at [facility] of cervical spine showed new pontine lesion not present in February. Other cervical/thoracic spine MRIs reported unremarkable at that time. On July 05, MRI with central pontine lesion plus other scattered lesions (felt old in nature). Cord lesion in the cervical spine at C4-5 area. --> Interestingly, she has disc disease particularly in the thoracic spine at T5-6 and C6-7 without cord impingement and no lesions in the thoracic cord. Overall, her lesions in the brain and cervical spine are consistent with MS. LP attempted by radiology 07/05 "dry tap" at different levels even using fluoroscopy, likely 2nd to n/v/dehydration Numbness/tingling with sensory level consistent up to T4 diffusely b/l (?2nd to discs seen at T5-T6, T6-7), although new pontine lesion or cervical spine lesion could cause sensory level but not the cervical spine due to age Per Neurology, suspected patient with MS and has had new symptoms of flare-up recently Given Solu-medrol IV x 3 days (completed 07/08) with some neurologic improvement, but still with significant weakness/pain. No more IV steroids, but medrol dose pack per pain management no effect and d/c'd. ? any concerns for daryl in pt with dex on med list on admit? Scheduled baclofen 10mg BID - prior prn Also on topiramate 25mg BID for headaches (none reported today). Consider adding requip for RLS at rehab after week per Dr Sweeney Also sent for Aquaporin 4 antibody and myelin oligodendrocyte glycoprotein antibody to help exclude NMO spectrum disorders Would reattempt LP as outpatient for standard MS panel Pain management consulted --> MRI lumbar spine -- no acute finding to explain symptoms --> Increased gabapentin to 800mg TID today --> Switched oxycodone to hydromorphone PO prn but attempted to limit use -- to wean at rehab Also started topiramate (had been on in past w/ hx pseudotumor and reported headaches) -- cont at d/c Morphine weaned 2mg --> 1mg --> 0.5mg IV slowly to prevent withdrawal as had been getting fairly frequently despite appearing comfortable at times and being awoken for exam and asking when next morphine/pain pill due Orthopedics consulted knee pain-- lidocaine patch trial -- reported not effective. Can follow up outpt for injection if continues PT/OT with recs for rehab -- [facility] when medically stable. Patient had father coming but then reportedly had flat tire and d/c was cancelled. I cancelled morphine as we had discussed multiple times day of discharge. Family even called [facility] to make sure patient got over there. CM from ER arranged transport around midnight to [facility] for rehab. (2) Substance abuse: Psychiatry following; recommend alcohol cessation. No s/sx withdrawal currently On thiamine, folic acid replacement. B12 over normal limits Psych consults as above -- ativan prn (has been getting fairly regularly and will need to wean slowly, could also be contributing to weakness with frequent opiates as above). Started on lexapro 10mg -- titrated to 20mg today by psych and sent at d/c Discussed cymbalta for mood/pain/?fibromyalgia -- patient stated not able to take and tried in the past Extra days weaning morphine as patient frequently with reminders and asking 20min after last when next and what can be given. Would rec psych follow up at d/c and consideration for mood stabilizer given hx bipolar although discuss with psych during inpatient stay and recs not to start at this time B1, B6 levels pending as well (3) Major depression: reported hx bipolar w [place], however psych feels more MDD Lexapro initiated; psychiatry input greatly appreciated They also ordered 1mg ativan prn -- had been getting fairly regularly --> decreased to 0.5mg dosing in attempts to wean off and no increased anxiety reported Lexapro started 10mg daily, increased to 20mg today by psych and continued also discussed reported PTSD/difficulty sleeping and ok w starting prazosin HS but would avoid any mood stabilizer like lamictal at this time Prazosin 1mg HS and cont'd at d/c Rec f/u psych -- consider increasing as tolerated for sleep (4) [facility] of COVID-19: [facility] --> repeat testing NEGATIVE (5) Abnormal LFTs: Pattern consistent with alcohol induced --stable and decreasing. 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 Unable to tolerate NSAIDs. Baclofen as above, oxycodone for breakthrough switched to hydromorphone by pain management Ortho consulted -- lidocaine patch --> . injection outpatient if persistent for pes bursa (7) Bacterial vaginosis: Urine culture Gardnerella; appears probable bacterial vaginosismetronidazole 7 days (on day 6 while inpatient) and to continue for 1 more day Lovenox for DVT prophylaxis while inpatient Total Time Total Time Spent Total Time Spent (In Minutes): 70 Discharge Plan Discharge Items Patient Disposition: Transfer Inpatient Rehab Fac Reason For Visit: MS FLARE UP, AMBULATORY DYSFUNCTION Discharge Diagnosis: MS Flare, Ambulatroy Dysfunction Goals: You have been hospitalized for an acute medical problem. During your stay at [facility], we have made an effort to correct the problem that brought you to the hospital while keeping you as comfortable as possible. Medications were used to bring your condition under control and your discharge instructions will include directions for any medications you should take after leaving the hospital. Please make sure you see your Primary Care Provider as part of your follow up plan. Activity: As commented below Activity Comment: advance with therapy Non-emergency contact: Primary Care Provider, Surgeon and Neurologist Call non-emergency contact if: you have any medication questions, your symptoms worsen, your pain is worsening and you have a fever Follow-up/Referrals: Toby Villanueva MD [Physician] - Suzy Singh PA-C [Primary Care Provider] - Antonio Garcia MD [Surgeon] - GWENDOLYNNO [Physician] - Diet: Regular Addtl Attending Provider Instructions: You have been hospitalized for ambulatory dysfunction and concerns for multiple sclerosis. Neurology was consulted and we attempted to do a lumbar puncture for analysis x2 which was unsuccessful due to dehydration and a dry tap. Per neurology this should be recommended to be repeated as an outpatient and you will be arranged follow-up with their office with Dr. Villanueva or his partner Ilene Mccord. You were evaluated by psychiatry during her inpatient stay given your history of bipolar and you were started on Lexapro which was increased to 20 mg daily and we added prazosin 1 mg at night which we continued and can be increased as tolerated to help with PTSD and insomnia. You should have follow-up with psychiatrist after discharge from [facility] rehab. You are evaluated by orthopedics for your complaints of right knee pain and there were concerns about a possible function and toxin injection for pain control however this will need to be arranged on outpatient basis. In the meantime you have been instructed to use an immobilizer to your knee and ice packs for comfort and continue lidocaine patches as needed.. You are also seen by pain management for your complaints of pain and are being sent on a regimen coordinated with neurology for MS symptoms which includes baclofen 10 mg by mouth twice daily, gabapentin 800 mg by mouth 3 times a day, topiramate 25 mg by mouth twice a day, and hydromorphone 7.5 mg as needed for breakthrough pain. You should continue to use Tylenol as needed for nonsevere pain. At [facility], they can consider starting requip low dose for restless legs and increase as tolerated for symptoms. You have also had a low vitamin D level and have been started on supplementation with 50,000IU weekly for a month and should follow up for repeat levels. You should continue to abstain from alcohol discharge as this is caused elevation of your liver enzymes which should improve with cessation of alcohol. Given your previous antibiotics with Augmentin at outside hospital repeat urine culture showed Gardnerella bacterial vaginosis and you were started on metronidazole and will have completed day 6 of treatment while in the hospital and only have 1 further day treatment to go. You have been arranged for rehab at discharge to [facility] to work on strength and conditioning. We will need to have follow-up with neurology, orthopedics, and primary care at discharge to monitor your symptoms after discharge. Please return to the emergency department if you have any increased fever, chills, chest pain, shortness of breath, weakness, or any other symptoms that are concerning for you. It has been a pleasure being part of the medical team providing for you while in the hospital. Take care! Pending Studies at Discharge: Yes Studies:: B6, B1, Reference testing for NMO Stand-Alone Forms: My [facility] Skilled Items Patient informed of condition?: Yes DNR: No Discharge Level of Care: Acute rehab Communicable Disease: No Discharge Prognosis: Stable Lines: None Urinary Catheter: No Medications and DC Order Prescriptions: New prazosin 1 mg Capsule 1 mg PO HS Qty: 30 RF: 0 topiramate 25 mg Tablet 25 mg PO BID 30 Days Qty: 60 RF: 0 metronidazole 500 mg Tablet 500 mg PO BID Qty: 3 RF: 0 lorazepam 0.5 mg Tablet 0.25 mg PO Q6H PRN (Reason: anxiety) Qty: 10 RF: 0 gabapentin 800 mg Tablet 800 mg PO TID 30 Days Qty: 90 RF: 0 baclofen 10 mg Tablet 10 mg PO BID Qty: 30 RF: 0 hydrocodone-acetaminophen 7.5-325 mg Tablet 1 tab PO Q6 PRN (Reason: pain) Qty: 10 RF: 0 nicotine [Nicoderm CQ] 21 mg/24 hr Patch 24 Hour 21 mg transdermal QAM Qty: 1 RF: 0 escitalopram oxalate 20 mg Tablet 20 mg PO QAM Qty: 30 RF: 0 pantoprazole 40 mg Tablet,Delayed Release (Dr/Ec) 40 mg PO QAM Qty: 30 RF: 0 lidocaine 5 % Adhesive Patch,Medicated 1 patch transdermal QAM Qty: 1 RF: 0 ergocalciferol (vitamin D2) 1,250 mcg (50,000 unit) Capsule 50,000 unit PO Q7D@0900 Qty: 4 RF: 0 Continued trazodone 50 mg tablet See Rx Instructions .ROUTE .COMPLEX Qty: 30 RF: 3 acetaminophen 500 mg tablet 1,500 mg PO BID RF: 0 lisinopril 5 mg tablet 5 mg PO DAILY RF: 0 albuterol sulfate [Ventolin HFA] 90 mcg/actuation HFA aerosol inhaler 2 puff inhalation UD PRN (Reason: Shortness Of Breath) RF: 0 Discontinued gabapentin 600 mg tablet See Rx Instructions .ROUTE .COMPLEX Qty: 90 RF: 3 Discharge Orders: Discharge Order (Routine); Ordered 07/14/21 Ordered By: Fidencio Pineda Admission Data Admit Date/Time: 07/04/21 11:42 Attending Provider: Jose Nguyen Admit Provider: Lance Junior Primary Care Provider: Suzy Singh Other Providers: Tomasz Sweeney ; Zuleima Lin ; Dr José ; Dina Pratt ; Jhonatan Craig ; [facility] ; Odalys Brumfield Christopher Childers Other Interventions: Discharge Summary Assessment (RN) Last Done: 07/13/21 18:34 Coding Level of Care Code D/C DAY MANAGEMENT >30 MINS Diagnoses Paraparesis G82.20 Substance abuse F19.10 Major depression F32.9 History of COVID-19 Z86.16 Abnormal LFTs R94.5 Right knee pain M25.561 Bacterial vaginosis N76.0; B96.89
[2021-07-13] MEDS ORDERED: ERGOCALCIFEROL 50,000 UNITS 1250 MCG CAP PO SCH (14:00)
[2021-07-13] MEDS: LORazepam 0.5 MG TAB PO PRN (20:07)
[2021-07-13] MEDS: PRAZOSIN HCL 1 MG CAP PO SCH (20:08)
--- NOTE | 2021-07-13 22:06 | Communication Note ---
Date of Service: July 13, 2021 Transportation fell through and is unable to pick patient up tonight. Otherwise has no form of transportation in order to leave the hospital without this ride. Cancelled discharged for tonight.
[2021-07-13 23:27] VITALS: BP 112/70; PULSE 76; TEMP 97.9
[2021-07-14] MEDS: LORazepam 0.5 MG TAB PO PRN (02:22)
[2021-07-14] MEDS ORDERED: methylPREDNISolone 4 MG TAB PO SCH (07:00)
[2021-07-15] MEDS ORDERED: methylPREDNISolone 4 MG TAB PO SCH (07:00)
[2021-07-15 12:26] LABS: Vitamin B6 4.2 ng/mL (2.1-21.7)
== END 2021-07-14 03:02 | DRG 59 ==
LOC: 3W → SUATTDRO 07-04 11:42
DX: Z87.440 Personal history of urinary (tract) infections; G35 Multiple sclerosis; E86.0 Dehydration; G93.2 Benign intracranial hypertension; E87.1 Hypo-osmolality and hyponatremia; K86.1 Other chronic pancreatitis; M22.41 Chondromalacia patellae, right knee; K76.0 Fatty (change of) liver, not elsewhere classified; Z88.6 Allergy status to analgesic agent; F10.20 Alcohol dependence, uncomplicated; G25.81 Restless legs syndrome; N76.0 Acute vaginitis; Z86.16 Personal history of COVID-19; Z83.3 Family history of diabetes mellitus; F32.9 Major depressive disorder, single episode, unspecified